=== PATIENT | female | born 1955 | race Caucasian/White ===

== ENCOUNTER → 2022-01-15 | Outpatient (CLI) | payer MEDICARE, SELFPAY ==
--- NOTE | 2022-01-15 15:00 | RAD_ITS ---
STUDY: XR Chest 2 Views 01/15/2022 3:05 PM REASON FOR EXAM: Female, 66 years old. CHEST PAIN ABNORMAL WEIGHT LOSS COMPARISON: None TECHNIQUE: XR Chest 2 Views FINDINGS: There is no demonstrated pleural abnormality. Normal heart size. Normal mediastinum. Normal sushma. Prominent appearing increased interstitial lung markings. Normal visualized pulmonary arteries. There is atherosclerotic calcification of the aortic arch with tortuosity. There are diffuse degenerative changes of the visualized thoracic spine. There is degenerative osteoarthritis of the bilateral shoulders. There is no demonstrated abnormality of the visualized soft tissue structures of the upper abdomen. RAD/Chest PA and Lateral IMPRESSION: There are no acute findings. Electronically Signed: Leonard Barr MD at 15:17 EDT ,
[2022-01-15 15:37] LABS: Anion Gap 6 (5-15); BUN 19 mg/dL (7-18); BUN/Creat Ratio 14.3 RATIO (10-20); Calcium,Total 9.9 mg/dL (8.5-10.1); Chloride 103 mmol/L (98-107); Creatinine, Serum 1.33 mg/dL (0.55-1.02); EST Glomerular Filtration Rate 43 mL/min (>60); Est Glom Filt Rate - Afr Amer 51 mL/min (>60); Glucose 125 mg/dL (74-106); Potassium 3.8 mmol/L (3.5-5.1); Sodium Level 135 mmol/L (136-145)
[2022-01-15 15:45] LABS: PTHIN 49.3 pg/mL (18.4-80.1)
== END | disposition home or self-care (01) ==
PROVIDERS: Visit Provider Nurse Practitioner Adult Health
DX: R10.30 Lower abdominal pain, unspecified (principal); E83.52 Hypercalcemia; R63.4 Abnormal weight loss
CPT/HCPCS: 36415; 71046; 80048; 83970

== ENCOUNTER → 2022-01-16 | Outpatient (CLI) | payer MEDICARE, SELFPAY | END | disposition home or self-care (01) | LOC: LAB 12:17 | PROVIDERS: Visit Provider Nurse Practitioner Adult Health | DX: R10.30 Lower abdominal pain, unspecified (principal); E83.52 Hypercalcemia | CPT/HCPCS: 82274 ==

== ENCOUNTER → 2022-01-28 | Outpatient (CLI) | payer MEDICARE, SELFPAY ==
--- NOTE | 2022-01-28 13:28 | EKG12_ITS ---
Test Reason : ROUTINE Blood Pressure : / mmHG Vent. Rate : 083 BPM Atrial Rate : 083 BPM P-R Int : 154 ms QRS Dur : 110 ms QT Int : 362 ms P-R-T Axes : 065 055 070 degrees QTc Int : 425 ms Normal sinus rhythm Normal ECG Confirmed by LYNNE TRINH, TEOFILO ([id number]), online editor MCKENZIE HAND ([id number]) on 01/29/2022 1:09:19 PM Referred By: Dana Ramos Confirmed By:TEOFILO BATISTA MD
--- NOTE | 2022-01-28 13:45 | CDU_ITS ---
Reason For Study: other symptoms of circulatory and respitory systems Rt. Velocities/BP Lt. Velocities/BP Prox CCA 77.3/25.2 cm/sec. Prox CCA 108.4/38.4 cm/sec. Mid CCA 90.4/26.5 cm/sec. Mid CCA 83.9/31.1 cm/sec. Dist CCA 77.3/22.6 cm/sec. Dist CCA 87.6/34.8 cm/sec. Prox ICA 207.8/68.8 cm/sec. Prox ICA 432.0/156.2 cm/sec. Mid ICA 301.5/110.9 cm/sec. Mid ICA 266.8/119.5 cm/sec. Dist ICA 253.1/78.5 cm/sec. Dist ICA 297.9/97.0 cm/sec. Rt. ICA/CCA = 3.3. Lt. ICA/CCA = 5.2. Prox ECA 89.1/8.2 cm/sec. Prox ECA 126.6/18.8 cm/sec. Rt. Vert. 48.2/9.9 cm/sec. Lt. Vert. 48.7/11.9 cm/sec. Right Extracranial There is homogeneous, smooth atherosclerotic plaque noted in the right common carotid artery. There is heterogeneous, irregular atherosclerotic plaque noted in the right internal carotid artery. There is homogeneous, smooth atherosclerotic plaque noted in the right external carotid artery. Antegrade flow is noted in the right vertebral artery. Left Extracranial There is homogeneous, smooth atherosclerotic plaque noted in the left common carotid artery. There is heterogeneous, irregular atherosclerotic plaque noted in the left internal carotid artery. There is heterogeneous, irregular atherosclerotic plaque noted in the left external carotid artery. Antegrade flow is noted in the left vertebral artery. Procedure Carotid Duplex [id number]. This is a Carotid Duplex examination using B-mode, color flow and specral Doppler. The exam was diagnostic. Exam performed in department. Prelim of minoo critical stenosis called to nurse Magaña at the [facility]. VL/Carotid Duplex Ultrasound Interpretation Summary Irregular calcific plaque with shadowing at the proximal right internal carotid artery with greater than 70% stenosis of the internal carotid artery Less than 50% stenosis right external carotid artery Irregular calcific plaque at the proximal left internal carotid artery with gre ater than 70% stenosis of the internal carotid artery and likely closer to near occlusion. Less than 50% stenosis left external carotid artery Patent and antegrade vertebral arteries bilaterally Ordering Physician: Dana Ramos Performed By: Robbie Yanez RVT
--- NOTE | 2022-01-28 13:50 | CT_ITS ---
STUDY: CT ABDOMEN AND PELVIS WITHOUT CONTRAST REASON FOR EXAM: Female, 66 years old. Lower abdominal pain. Weight loss. RADIATION DOSAGE (If Supplied By Facility): CTDIvol = ( 11.66 ) mGy, DLP = ( 506.72 ) mGycm TECHNIQUE: Transaxial images were obtained from the dome of the diaphragm to the symphysis pubis without oral contrast, and without intravenous contrast. Sagittal and coronal images were reconstructed. Individualized dose optimization techniques were used for this CT. COMPARISON: None. FINDINGS: Mild degree of linear scarring at the left lung base. Calcified left lower lobe granuloma. Minimal pericardial thickening. Normal liver. Normal gallbladder and extrahepatic biliary system. Normal spleen. Normal pancreas. Normal bilateral adrenal glands. Moderate degree of right hydronephrosis and the right hydroureter down to the distal ureter although no obstructive calculus is seen. This may be a result of the right vesicle ureteral reflux. Normal left kidney. There is a small hiatal hernia. Normal small intestine. There are scattered colonic diverticula consistent with diverticulosis. The appendix is visualized and appears normal. There is scattered atherosclerotic calcification of the abdominal aorta, without a demonstrated aneurysm. Normal inferior vena cava. Normal retroperitoneum. The urinary bladder is distended. Normal abdominal wall. Is sclerosis of the right pelvic bones suggestive of metastatic disease. Sclerosis is also seen in the inferior aspect of the left sacrum and left iliac bone. CT/Abdomen/Pelvis without Cont IMPRESSION: Moderate degree of right hydronephrosis and right hydroureter down to the distal portion of the right ureter. This may represent changes secondary to right vesicoureteral reflux. Findings in keeping with the sclerotic metastasis involving the right hemipelvis as described. Electronically Signed: Rios Caraballo MD at 15:31 EDT ,
== END | disposition home or self-care (01) ==
PROVIDERS: Referring Provider Nurse Practitioner Adult Health; Visit Provider Nurse Practitioner Adult Health
DX: R09.89 Other specified symptoms and signs involving the circulatory and respiratory systems (principal); R00.0 Tachycardia, unspecified; R10.30 Lower abdominal pain, unspecified
CPT/HCPCS: 74176; 93005; 93880

== ENCOUNTER → 2022-01-28 | Outpatient (CLI) | payer MEDICARE, SELFPAY ==
--- NOTE | 2022-01-28 18:25 | CT_ITS ---
EXAM: CT ANGIOGRAPHY NECK WITHOUT AND WITH INTRAVENOUS CONTRAST CLINICAL INDICATION: carotid stenosis TECHNIQUE: Routine carotid CT angiography protocol was performed without and with intravenous contrast. Nascet criteria using the distal ICAs for comparison were used for evaluation of stenoses. This CT exam was performed using one or more of the following dose reduction techniques: automated exposure control, adjustment of the mA and/or kV according to patient size, and/or use of iterative reconstruction technique. This report was created using Nipendo report generation technology. MIP reconstructed images were created and reviewed. CONTRAST: IV 100mL Isovue-370 RADIATION DOSE: CTDIvol = 14.78 mGy, DLP = 557.33 mGy-cm COMPARISON: None. FINDINGS: VASCULATURE: RIGHT COMMON CAROTID ARTERY: Unremarkable. No occlusion or significant stenosis. No dissection. RIGHT INTERNAL CAROTID ARTERY: There is mild atherosclerotic plaque formation of the origin of the right internal carotid artery with less than 50% cross sectional diameter stenosis. ALL ABOVE CRITERIA BY NASCET. No dissection. RIGHT EXTERNAL CAROTID ARTERY: Unremarkable. No occlusion. RIGHT VERTEBRAL ARTERY: Unremarkable. No occlusion or significant stenosis. No dissection. LEFT COMMON CAROTID ARTERY: Unremarkable. No occlusion or significant stenosis. No dissection. LEFT INTERNAL CAROTID ARTERY: There is severe soft and calcified atherosclerotic plaque formation of the origin of the left internal carotid artery with less a calculated stenosis of 77 % cross sectional diameter stenosis. ALL ABOVE CRITERIA BY NASCET. No dissection. LEFT EXTERNAL CAROTID ARTERY: Unremarkable. No occlusion. LEFT VERTEBRAL ARTERY: Unremarkable. No occlusion or significant stenosis. No dissection. GREAT VESSELS OF AORTIC ARCH: Unremarkable. Normal anatomy, patent. NECK: BONES/JOINTS: Unremarkable. SOFT TISSUES: Unremarkable. LUNG APICES: Clear. CAROTID STENOSIS REFERENCE USING NASCET CRITERIA: % ICA stenosis = (1 - narrowest ICA diameter/diameter of distal cervical ICA) x 100. Mild - <50% stenosis. Moderate - 50-69% stenosis. Severe - 70-94% stenosis. Near occlusion - 95-99% stenosis. Occluded - 100% stenosis. CT/CTA Neck W/WO Contrast IMPRESSION: 1. There is mild atherosclerotic plaque formation of the origin of the right internal carotid artery with less than 50% cross sectional diameter stenosis. ALL ABOVE CRITERIA BY NASCET. 2. There is severe soft and calcified atherosclerotic plaque formation of the origin of the left internal carotid artery with less a calculated stenosis of 77 % cross sectional diameter stenosis. ALL ABOVE CRITERIA BY NASCET. Electronically Signed: Leonard Barr MD at 19:05 EDT ,
== END | disposition home or self-care (01) ==
PROVIDERS: Visit Provider Surgery
DX: I65.29 Occlusion and stenosis of unspecified carotid artery (principal); R09.89 Other specified symptoms and signs involving the circulatory and respiratory systems; R00.0 Tachycardia, unspecified; R10.30 Lower abdominal pain, unspecified
CPT/HCPCS: 70498; 74176; 93005; 93880; Q9967; A4216

== ENCOUNTER → 2022-01-30 | Outpatient (CLI) | payer MEDICARE, SELFPAY ==
[2022-01-30 13:36] LABS: Cholesterol 197 mg/dL (200); High Density Lipoprotein 46 mg/dL; Triglycerides 108 mg/dL; Very Low Density Lipoprotein 22 mg/dL (5-40)
== END | disposition home or self-care (01) ==
DX: R09.89 Other specified symptoms and signs involving the circulatory and respiratory systems (principal); I65.29 Occlusion and stenosis of unspecified carotid artery
CPT/HCPCS: 36415; 80061

== ENCOUNTER → 2022-02-06 | Outpatient (CLI) | payer MEDICARE, SELFPAY ==
[2022-02-08 13:48] LABS: Thyroid Peroxidase AB 23 IU/mL (0-34)
== END | disposition home or self-care (01) ==
LOC: LAB 15:01
PROVIDERS: Visit Provider Nurse Practitioner Adult Health
DX: R68.89 Other general symptoms and signs (principal)
CPT/HCPCS: 36415; 84443; 86376

== ENCOUNTER → 2022-02-13 | Outpatient (CLI) | payer MEDICARE, SELFPAY ==
--- NOTE | 2022-02-13 16:45 | PET_ITS ---
PROCEDURE: WHOLE BODY PET/CT SCAN, MID SKULL TO MID THIGH REASON FOR EXAM: Osseous sclerosis of the right hemipelvis COMPARISON EXAMINATION: CT 01/28/2022. TECHNIQUE: Following the intravenous administration of 13.1 mCi of F-18 FDG, multiplanar imaging acquisitions of the neck, chest, abdomen/pelvis to the mid thigh, obtained at 1 hour post radiopharmaceutical administration. Interpretation is with co-registeration of similar anatomic distribution of CT. Findings: Normal and physiologic distribution of radioisotope identified in the expected intensity of the hepatic and splenic parenchyma, urinary tract and gastrointestinal structures. There is gross anatomic distribution of the intracranial contents. Focal activity of the anterior oral cavity measures 8 mm with SUV 11.0). INDEX LESION SIZE SUV INTERPRETATION: 1. Diffuse sclerosis of predominantly the right hemipelvis (much of which is associated with abnormal FDG activity involving the right iliac crest (SUV 8.5), ileum (SUV 11.7) and ischium (SUV 13.5) as seen on prior CT. There is also less defined sclerosis involving the left side of the sacrum (SUV 10.5). On PET images, there is diffuse increased activity involving the right hemipelvis and sacrum with FDG activity measuring up to SUV. There is also increased activity involving the right iliacus muscle with SUV measuring up to 21.2 3. Focal activity of the anterior oral cavity measures 8 mm with SUV 11.0. 4. Focal (1.2 cm) activity of the right side of the heart (in region of interatrial septum) with SUV 10.4 measuring best seen on image 96 of series 301. 5. U-shaped wall thickening of the posterior upper stomach with focal increased activity (SUV) best seen on image [address] portion of the exam: Atherosclerosis of the carotid arteries. The lungs are normal. There is no demonstrated pleural abnormality. Normal heart and pericardium. Normal mediastinum. Normal hilar regions. Normal unenhanced pulmonary arteries. Atherosclerosis of the thoracic aorta. Normal liver. Normal gallbladder and extrahepatic biliary system. Normal spleen. Normal pancreas. Normal bilateral adrenal glands. Persistent hydronephrosis of the right kidney with hydroureter. Hyperdensity within the right urinary tract suggest blood product/hematuria. Left kidney is unremarkable. Normal visualized stomach. Normal small intestine. There are multiple colonic diverticula consistent with diverticulosis. The appendix is visualized and appears normal. There is diffuse atherosclerotic calcification of the abdominal aorta, without a demonstrated aneurysm. Normal inferior vena cava. Normal urinary bladder. Mild thickening of the right iliacus muscle as compared to the left with slightly indistinct margins, unchanged since prior study.. PET/PET/CT Tumor Base -Thigh Init IMPRESSION: 1. Diffuse sclerosis and increased FDG activity of the right hemipelvis and sacrum with thickening and increased activity of the right iliacus muscle. Although findings meet criteria for viable neoplasm, other benign/metabolic causes such as Paget''s disease should be considered, albeit less likely. Biopsy may be necessary for differentiation. 2. Gastric wall thickening with associated abnormal FDG activity meeting criteria for viable neoplasm. Endoscopic evaluation recommended. 3. Focal activity of the right side of the heart, in region of the interatrial septum, likely representing lipomatous hypertrophy of the interatrial septum. 4. Stable severity of right hydronephrosis/hydroureter with new hyperdensity suggesting blood products/hematuria. Correlation with urinalysis recommended. Urology consultation should be considered. 5. Focal activity of the anterior midline oral cavity meets criteria for viable neoplasm. Direct visualization recommended. 6. Chronic changes, as detailed above. Electronically Signed: Anthony Reeves MD ([place]) at 14:46 EDT ,
== END | disposition home or self-care (01) ==
LOC: ONC 16:24
PROVIDERS: Referring Provider Nurse Practitioner Adult Health; Visit Provider Nurse Practitioner Adult Health
DX: R93.5 Abnormal findings on diagnostic imaging of other abdominal regions, including retroperitoneum (principal)
CPT/HCPCS: 78815; A9552

== ENCOUNTER 2022-02-19 12:12 | Inpatient (IN) | payer MEDICARE, SELFPAY ==
[2022-02-19] VITALS (13 sets, daily range): BP systolic 107–158; BP diastolic 54–91; PULSE 65–104; RESP 16–18; TEMP 36.3–37.1; O2SAT 92–100; BMI 28.3; BMI 28.0
--- NOTE | 2022-02-19 13:00 | EKG12_ITS ---
Test Reason : Blood Pressure : / mmHG Vent. Rate : 075 BPM Atrial Rate : 075 BPM P-R Int : 158 ms QRS Dur : 104 ms QT Int : 388 ms P-R-T Axes : 052 019 032 degrees QTc Int : 433 ms Normal sinus rhythm Normal ECG Confirmed by MAC TRINH, GUY ([id number]), editor at large MCKENZIE HAND ([id number]) on 02/21/2022 10:58:29 AM Referred By: Confirmed By:GUY WATTS MD
--- NOTE | 2022-02-19 13:01 | EDS_ITS ---
HPI History of Present Illness Chief Complaint: Abn Labs Informant: patient and family Narrative Narrative: 66-year-old female presenting to the emergency room with low hemoglobin level. Patient recently found out she most likely has metastatic cancer. She states that she has lesions in her bones and a gastric mass. She follows with . Barb from who nora blood on her today and the patient has a hemoglobin of 5.8. She does note that her stools are black. She was scheduled for endoscopy in just a couple days but due to the anemia was sent to emergency. She notes no syncope but has had near syncopal episodes. She feels lightheaded. She denies any chest pain. [facility] Medical History Abdominal pain Abnormal weight loss Dizziness Essential (primary) hypertension Lower abdominal pain, unspecified Home Medications budesonide 160 mcg-glycopyr 9 mcg-formot 4.8 mcg/actuation HFA inhaler ([employer]) 2 inh inhalation BID 01/28/22 [History Last Taken 02/19/22] gabapentin 300 mg capsule 300 mg PO TID 01/28/22 [History Last Taken 02/19/22] losartan 100 mg tablet 100 mg PO DAILY 01/28/22 [History Last Taken 02/15/22] tizanidine 4 mg tablet 4 mg PO BID PRN MUSCLE RELAXER 01/28/22 [History Last Taken 02/19/22] clopidogrel 75 mg tablet 75 mg PO DAILY BLOOD THINNER 02/08/22 [History Last Taken 02/15/22] hydrocodone-acetaminophen 5-325mg 5mg-325mg 1 tab PO Q8H PRN Pain 02/08/22 [History Last Taken 02/19/22] simvastatin 20 mg tablet 20 mg PO QHS CHOLESTEROL 02/08/22 [History Last Taken 02/18/22] dexamethasone 4 mg tablet (Decadron) 4 mg PO DAILY #30 tabs 02/18/22 [Rx Last Taken 02/18/22] naproxen sodium 220 mg tablet (Aleve) 440 mg PO BID PRN Pain 02/19/22 [History Last Taken Unknown] Allergy/AdvReac Type Severity Reaction Status Date / Time No Known Allergies Allergy Verified 02/19/22 12:13 Family History Grandmother Breast cancer Hypertension Sister Cancer CERVICAL Sister Cancer UTERUS Brother Cancer ESOPHAGEAL Brother Cancer PROSTATE Mother Hypertension Diabetes Social History (Updated 02/19/22 @ 13:[address] Gene Kerr DO) Smoking Status: Current every day smoker tobacco type: cigarettes substance use type: does not use EXAM Physical Exam Const Vital Signs: 02/19/22 12:13 02/19/22 12:49 Temperature 98.1 F Temperature Source Temporal Pulse Rate 104 H Respiratory Rate 16 Respiratory Effort Normal Respiratory Pattern Normal Blood Pressure 107/56 L Blood Pressure Mean 73 Pulse Ox 92 Oxygen Delivery Method Room Air Positive well nourished and well developed General Appearance ED: well developed and pallor HEENT Reports normocephalic, head/scalp atraumatic and moist mucous membranes Eyes PERRL and EOMs intact bilaterally General Eye ED: Yes pale conjunctiva Neck no lymphadenopathy, supple and no JVD Resp normal respiratory effort and clear to auscultation bilaterally Cardio regular rate and no murmurs Rate: tachycardic GI normal to inspection, nondistended, normoactive bowel sounds and non-tender Palpation: soft Back/Spine no CVA tenderness and normal ROM Extremity normal to inspection General Extremety ED: Negative for edema General Extremity: Negative for edema Neuro oriented x3 and CN's II-XII intact bilaterally Sensorium / Orientation: alert Motor Exam: strength 5/5 throughout Psych mental status grossly normal Mood & Affect: Negative for depressed or tearful Skin no rashes or lesions noted and no wounds General Skin Exam: pallor MDM MDM MDM Narrative Medical decision making narrative: I reviewed the outpatient labs. Patient was typed and crossed for 2 units. I will speak with the hospitalist regarding admission. Lab Data Attestation: I reviewed the patient's lab results. Labs: Laboratory Results - last 24 hr 02/19/22 02/19/22 12:35 12:35 PT 15.2 H INR 1.2 APTT 49.2 H Crossmatch See Detail EKG Initial EKG: Attestation: I personally reviewed and interpreted this EKG as follows: Comments: Normal sinus rhythm with a ventricular rate of 75 bpm. Discharge Plan Dx/Rx/DC Orders Clinical Impression: Gastric mass, Anemia requiring transfusions, Acute upper gastrointestinal bleeding Disposition Disposition: [facility]
[2022-02-19 13:20] LABS: International Normalized Ratio 1.2; Prothrombin Time (Protime)PT. 15.2 SECONDS (11.7-14.9)
[2022-02-19 13:21] LABS: Partial Thromboplast Time 49.2 Seconds (24.1-36.2)
--- NOTE | 2022-02-19 13:44 | PCM.HP.STD ---
HPI - General General Date of Admission: 02/19/22 HPI Narrative DEVIN BALLESTEROS, is a 66 F who presents to the hospital with a GI bleed. She has a gastric mass that was currently being worked up. She was post to have an endoscopy here in a few days for biopsy however she started having black stools and feeling lightheaded and having near syncopal episodes. She presented to the ER today after outpatient labs demonstrated a hemoglobin of 5.8. Creatinine is a little bit on the high side for her at 1.7 this is likely a reaction to her hemoglobin. She also has bone lesions that are also scheduled to be biopsied as well. [facility] Medical History Abdominal pain Abnormal weight loss Dizziness Essential (primary) hypertension Lower abdominal pain, unspecified Home Medications budesonide 160 mcg-glycopyr 9 mcg-formot 4.8 mcg/actuation HFA inhaler ([employer]) 2 inh inhalation BID 01/28/22 [History Last Taken 02/19/22] gabapentin 300 mg capsule 300 mg PO TID 01/28/22 [History Last Taken 02/19/22] losartan 100 mg tablet 100 mg PO DAILY 01/28/22 [History Last Taken 02/15/22] tizanidine 4 mg tablet 4 mg PO BID PRN MUSCLE RELAXER 01/28/22 [History Last Taken 02/19/22] clopidogrel 75 mg tablet 75 mg PO DAILY BLOOD THINNER 02/08/22 [History Last Taken 02/15/22] hydrocodone-acetaminophen 5-325mg 5mg-325mg 1 tab PO Q8H PRN Pain 02/08/22 [History Last Taken 02/19/22] simvastatin 20 mg tablet 20 mg PO QHS CHOLESTEROL 02/08/22 [History Last Taken 02/18/22] dexamethasone 4 mg tablet (Decadron) 4 mg PO DAILY #30 tabs 02/18/22 [Rx Last Taken 02/18/22] naproxen sodium 220 mg tablet (Aleve) 440 mg PO BID PRN Pain 02/19/22 [History Last Taken Unknown] Allergy/AdvReac Type Severity Reaction Status Date / Time No Known Allergies Allergy Verified 02/19/22 12:13 Family History Grandmother Breast cancer Hypertension Sister Cancer CERVICAL Sister Cancer UTERUS Brother Cancer ESOPHAGEAL Brother Cancer PROSTATE Mother Hypertension Diabetes Surgical History no surgical history no surgical history Social History (Updated 02/19/22 @ 13:[address] Gene Kerr DO) Smoking Status: Current every day smoker tobacco type: cigarettes substance use type: does not use ROS Constitutional Constitutional: Reports fatigue; Denies chills, fever(s) or malaise Eyes Eyes: Denies blurry vision ENT HEENT: Denies headache(s) or nasal discharge Cardiovascular Cardiovascular: Reports lightheadedness; Denies chest pain, dyspnea on exertion or syncope Respiratory/Chest Respiratory/Chest: Denies cough, shortness of breath at rest or shortness of breath with exertion Gastrointestinal Gastrointestinal: Reports melena; Denies constipation, diarrhea, nausea or vomiting Genitourinary Genitourinary: Denies dysuria Neurologic Neurologic: Denies focal weakness, numbness or tremor(s) Psychiatric Psychiatric: Denies anxiety or depression Vital Signs Vital Signs Vital Signs: 02/19/22 12:13 02/19/22 12:49 Temperature 98.1 F Temperature Source Temporal Pulse Rate 104 H Respiratory Rate 16 Respiratory Effort Normal Respiratory Pattern Normal Blood Pressure 107/56 L Blood Pressure Mean 73 Pulse Ox 92 Oxygen Delivery Method Room Air Weight Weight: 145 lb Body Mass Index (BMI) 28.3 Physical Exam Const alert, oriented x3 and no apparent distress General Appearance: cooperative HEENT normocephalic Mouth: dry mucous membranes Eyes PERRL and EOMs intact bilaterally Eyes Narrative: Pale conjunctiva Neck supple and no JVD Resp normal respiratory effort, no retractions, no use of accessory muscles and clear to auscultation bilaterally Auscultation: Negative for crackles, rales, rhonchi or wheezes Cardio regular rhythm, S1 normal heart sound, S2 normal heart sound and no murmurs Rate: tachycardic GI soft to palpation, non-tender and non-distended; Negative for hepatosplenomegaly Extremity no clubbing, cyanosis or edema Skin no rashes or lesions noted Neuro no focal motor deficits and no sensory deficits noted Psych affect normal Appearance: appropriate Results Lab / Micro Data Labs: Laboratory Results - last 24 hr 02/19/22 12:35: PT 15.2 H, INR 1.2, APTT 49.2 H 02/19/22 12:35: Crossmatch See Detail Assessment & Plan Assessment/Plan (1) Acute upper gastrointestinal bleeding: PLAN: Plan 1. Acute upper GI bleed with acute blood loss anemia possibly due to a gastric mass ? We will schedule to have an EGD in a few days however outpatient hemoglobin was 5.8 and she is been having black stools ? We will place her on a PPI ? Consult GI for endoscopy ? We will hold her Plavix ? We will hold her Decadron while n.p.o. ? Had a 25-minute discussion of advance care planning options including palliative care 2. HTN/HLD ? Blood pressures are stable, given her creatinine elevation, will hold her losartan ? Will hold her Plavix secondary to the GI bleed ? Since she is n.p.o. we will hold her statin DVT: SCDs Charges/Coding Visit Charges Inpatient E&M: 94828 Init Hosp L2 Procedures Hospitalists Procedures: 11917 Advncd Care Plan 30 Min
--- NOTE | 2022-02-19 13:45 | NURSING ---
MED SURG JACKIE UPPER GI BLEED, GASTRIC MASS, ANEMIA
--- NOTE | 2022-02-19 18:09 | PCM.CONS.GEN ---
Assessment & Plan Assessment/Plan (1) Gastric mass: PLAN: The differential diagnosis for gastric mass could be gastric adenocarcinoma, gastric lymphoma, gastric carcinoid, thickened gastric folds secondary to M?ni?re's disease versus linitus plastica. She will undergo an upper endoscopy to evaluate upper GI tract. (2) Acute upper gastrointestinal bleeding: PLAN: Differential diagnosis for upper GI bleed could be AVM could be gastric mass could be peptic ulcer disease. We will know more we will perform an upper endoscopy. HPI Consult Data Date of Consult: 02/19/22 HPI Narrative Reason for Consultation: anemia HPI Narrative: DEVIN BALLESTEROS, is a 66 F who presents to the office for outpatient consultation regarding a abnormality found on the PET scan that she had recently. She does admit to losing weight and having some progressive abdominal pain. She got a CT scan abdomen pelvis which had shown some bone lesions suspicious for metastatic disease. She got a PET scan which had shown that she possibly has a gastric mass and we were consulted for the evaluation of the gastric mass by oncology. She has had right hip pain for approximately 2 years but it worsened this Spring.? She developed dizziness and mid abdominal pain in November and the symptoms escalated in December.? She reports no pain in the abdomen currently since starting dexamethasone and pain medication.? She has a poor appetite and has lost weight.? She denies nausea or vomiting.? She has decreased frequency of bowel movements, no straining.? She has a stool softener at home that she plans to start taking. Labs on 12/31/2021: WBC 6.6, hemoglobin 12.1, platelets 474; hemoglobin A1c 6.0; protein 8.1, albumin 4.2, bilirubin 0.2, alk phos 82, AST 16, ALT 14, creatinine 1.27, sodium 134, potassium 4.8; iron 48; stool Hemoccult negative Labs on 02/19/2022: White blood cell count is normal hemoglobin is down to 5.8, platelet count is up to 710. [facility] Medical History Abdominal pain Abnormal weight loss Dizziness Essential (primary) hypertension Lower abdominal pain, unspecified Home Medications budesonide 160 mcg-glycopyr 9 mcg-formot 4.8 mcg/actuation HFA inhaler (Breztri Upkeep Charliephere) 2 inh inhalation BID 01/28/22 [History Last Taken 02/19/22] gabapentin 300 mg capsule 300 mg PO TID 01/28/22 [History Last Taken 02/19/22] losartan 100 mg tablet 100 mg PO DAILY 01/28/22 [History Last Taken 02/15/22] tizanidine 4 mg tablet 4 mg PO BID PRN MUSCLE RELAXER 01/28/22 [History Last Taken 02/19/22] clopidogrel 75 mg tablet 75 mg PO DAILY BLOOD THINNER 02/08/22 [History Last Taken 02/15/22] hydrocodone-acetaminophen 5-325mg 5mg-325mg 1 tab PO Q8H PRN Pain 02/08/22 [History Last Taken 02/19/22] simvastatin 20 mg tablet 20 mg PO QHS CHOLESTEROL 02/08/22 [History Last Taken 02/18/22] dexamethasone 4 mg tablet (Decadron) 4 mg PO DAILY #30 tabs 02/18/22 [Rx Last Taken 02/18/22] naproxen sodium 220 mg tablet (Aleve) 440 mg PO BID PRN Pain 02/19/22 [History Last Taken Unknown] Allergy/AdvReac Type Severity Reaction Status Date / Time No Known Allergies Allergy Verified 02/19/22 12:13 Family History Grandmother Breast cancer Hypertension Sister Cancer CERVICAL Sister Cancer UTERUS Brother Cancer ESOPHAGEAL Brother Cancer PROSTATE Mother Hypertension Diabetes Surgical History no surgical history Social History (Updated 02/19/22 @ 13:[address] Gene Kerr DO) Smoking Status: Current every day smoker tobacco type: cigarettes substance use type: does not use ROS Constitutional Constitutional: Reports fatigue; Denies chills, fever(s) or malaise Eyes Eyes: Denies blurry vision ENT HEENT: Denies headache(s) or nasal discharge Cardiovascular Cardiovascular: Reports lightheadedness; Denies chest pain, dyspnea on exertion or syncope Respiratory/Chest Respiratory/Chest: Denies cough, shortness of breath at rest or shortness of breath with exertion Gastrointestinal Gastrointestinal: Reports melena; Denies constipation, diarrhea, nausea or vomiting Genitourinary Genitourinary: Denies dysuria Neurologic Neurologic: Denies focal weakness, numbness or tremor(s) Psychiatric Psychiatric: Denies anxiety or depression Physical Exam Const alert, oriented x3 and no apparent distress General Appearance: cooperative HEENT normocephalic Mouth: dry mucous membranes Eyes PERRL and EOMs intact bilaterally Eyes Narrative: Pale conjunctiva Neck supple and no JVD Resp normal respiratory effort, no retractions, no use of accessory muscles and clear to auscultation bilaterally Auscultation: Negative for crackles, rales, rhonchi or wheezes Cardio regular rhythm, S1 normal heart sound, S2 normal heart sound and no murmurs Rate: tachycardic GI soft to palpation, non-tender and non-distended; Negative for hepatosplenomegaly Extremity no clubbing, cyanosis or edema Skin no rashes or lesions noted Neuro no focal motor deficits and no sensory deficits noted Psych affect normal Appearance: appropriate Lab / Micro Data Labs: Laboratory Results - last 24 hr 02/19/22 12:35: PT 15.2 H, INR 1.2, APTT 49.2 H 02/19/22 12:35: Blood Type O NEGATIVE, Antibody Screen NEGATIVE, Crossmatch See Detail Charges/Coding Visit Charges Inpatient E&M: 04425 Init Hosp L2
[2022-02-19] MEDS: 0.9% Normal Saline 1,000 ML 100 ML IV (21:43)
[2022-02-19] MEDS: 0.9% Saline Lock 10 ML Syringe IV (22:04)
--- NOTE | 2022-02-19 23:50 | EKG12_ITS ---
Test Reason : PRE-OP Blood Pressure : / mmHG Vent. Rate : 068 BPM Atrial Rate : 068 BPM P-R Int : 156 ms QRS Dur : 098 ms QT Int : 392 ms P-R-T Axes : 056 005 028 degrees QTc Int : 416 ms Normal sinus rhythm Normal ECG Confirmed by MAC TRINH, GUY ([id number]), dictionary editor MCKENZIE HAND ([id number]) on 02/21/2022 11:08:01 AM Referred By: TARA Confirmed By:GUY WATTS MD
[2022-02-20] VITALS (13 sets, daily range): BP systolic 102–124; BP diastolic 51–90; PULSE 69–89; RESP 15–18; TEMP 36.4–37.2; O2SAT 94–100; BMI 27.5
--- NOTE | 2022-02-20 | IMM_PTH ---
PATIENT: DEVIN BALLESTEROS LOC: [facility] U#:[id number] AGE/SX: 66/F ROOM: [facility] RE02/19/[address]: Dr. Mick Mcgrath DO : 1955 BED: 1 DIS: 02/21/2022 SPEC #: [id number] RECD: 02/21/22 13:48 STATUS: RICCARDO REQ #: [id number] ELLA: 02/20/22 00:[address]: Ra Barbhsaan DEPT: IMMUNOHISTOCHEMISTRY RECD BY: Ellie Gordon ENTERED: 02/21/22 13:50 SP TYPE: IMMUNO OTHR DR: DO Dr. Mason Snowden MD [facility] Tissues: Stomach, NOS Procedures: BCL-2 (add) BCL-6 (add) CD10 (add) CD23 (add) CD3 (add) CD30 (add) CD43 (add) CD5 (add) CD79A (add) CK8 (add) CYCLIN (add) KI-67 (add) Vimentin (add) H.PYLORI (add) MUM1 (add) C-MYC (add) Pankeratin (add) CD45 (initial) PHYSICIAN & [place] [id number] SPECIMEN INFORMATION: Tissue Source: Gastric mass Clinical Info: Gastric mass, acute upper GI bleeding Specimen Number: [id number] CPT code: 63875, 21666 x17 METHODOLOGY: Deparaffinized sections of prefer/formalin-fixed tissue or PAP/DQ stained slides are incubated with monoclonal/polyclonal antibodies/oligonucleotide probes. Localization is made via biotin free immunoperoxidase method. Appropriate controls are performed and reacted as expected. Results on target cell population are indicated in the following table: RESULTS: ANTIBODY / CLONE RESULT CD45 (RP2/18) positive CK8 (19cxsgQ33) negative AE1-3 (AE1/AE3/PCK26) negative Vimentin (V9) positive CD3 (PS1) negative CD5 (SP10) negative CD10 (56C6) positive CD20 (L26) positive CD23 (1B12) negative CD30 (Amor-H2) negative CD43 (L60) negative CD79a (11E3) positive BCL-2 (bcl-2/100/D5) negative BCL-6 (FR035M/A8) positive, focal Cyclin D1/BCL-1 (SP4) negative MUM1 (MRQ-43) negative C-MYC (Y69) positive Ki-67 (30-9) positive, high H Pylori (polyclonal) negative These tests were developed and their performance characteristics determined by [facility]. They may not have been cleared or approved by the U.S. Food and Drug Administration. The FDA has determined that such clearance or approval is not necessary. The above immunohistochemical/dualISH markers are ordered and reviewed by the Pathologist. 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 SJ:ivonne 02/26/2022 Case has been reviewed in consultation with Dr. Rivera who concurs with the above diagnosis. IDC:AM ADDENDUM ADDENDUM ADDENDUM ADDENDUM ADDENDUM ADDENDUM 04/09/2022 10:17 ADDENDUM 04/09/2022 10:17 ADDENDUM 04/09/2022 10:17 ADDENDUM 04/09/2022 10:17 ADDENDUM 04/09/2022 10:17 HPylori testing added to IHC Gastric mass, biopsy: Negative for Helicobacter pylori organisms. SJ:janelle 04/09/22
[2022-02-20] MEDS: Gabapentin 300 MG Capsule PO ×3 (00:33→21:24)
[2022-02-20] MEDS: Ipratropium/Albuterol Sulfate 3 ML AMPUL.NEB INHALATION ×3 (01:05→18:59)
[2022-02-20] MEDS: HYDROcodone Bitartrate/Apap 5/325 Tablet PO (05:29)
[2022-02-20 06:29] LABS: Absolute Lymphocyte Count 1.23 X10^3/uL (0.83-4.51); Absolute Neutrophil Count 6.9 X10^3/uL (2.0-7.7); Basophil# 0.03 X10^3/uL; Basophil% 0.3 % (0-1); Eosinophil# 0.01 X10^3/uL; Eosinophils% 0.1 % (0-5); Hematocrit 23.4 % (37-47); Hemoglobin 7.7 g/dL (12.0-15.0); Lymphocyte # 1.23 X10^3/ul (0.83-4.51); Lymphocyte % 13.6 % (19-41); Mean Corp Hgb Conc 32.9 g/dL (32-36); Mean Corpuscular Hgb 29.7 pg (27.0-32.0); Mean Corpuscular Volume 90.3 fL (81-99); Mean Platelet Vol. 8.2 fl (6.2-12.0); Monocyte# 0.69 X10^3/uL; Monocyte% 7.6 % (0-10); NRBC Flagged by Analyzer 0.2 % (0-5); Neutrophil # 6.94 X10^3/uL (2.7-7.7); Neutrophil % 76.6 % (47-70); Platelet Count 487 K/mm3 (150-450); RBC Distribution Width CV 14.6 % (11.6-14.6); RBC Distribution Width SD 47.6 fl (35.1-43.9); Red Blood Count 2.59 M/mm3 (4.2-5.4); White Blood Count 9.1 K/mm3 (4.4-11.0)
[2022-02-20 06:55] LABS: Anion Gap 6 (5-15); BUN 23 mg/dL (7-18); BUN/Creat Ratio 17.3 RATIO (10-20); Calcium,Total 8.9 mg/dL (8.5-10.1); Chloride 107 mmol/L (98-107); Creatinine, Serum 1.33 mg/dL (0.55-1.02); EST Glomerular Filtration Rate 43 mL/min (>60); Est Glom Filt Rate - Afr Amer 51 mL/min (>60); Estimated Creatinine Clearance 30.29 ml/min; Glucose 89 mg/dL (74-106); Potassium 4.7 mmol/L (3.5-5.1); Sodium Level 136 mmol/L (136-145)
--- NOTE | 2022-02-20 07:15 | EGD_PTH ---
PATIENT: DEVIN BALLESTEROS LOC: [facility] U#:[id number] AGE/SX: 66/F ROOM: [facility] RE02/19/[address]: Dr. Mick Mcgrath DO : 1955 BED: 1 DIS: 02/21/2022 SPEC #: [id number] RECD: 02/20/22 13:27 STATUS: RICCARDO JUMANA #: [id number] ELLA: 02/20/22 07:[address]: Shalom Day DEPT: SURGICAL PATHOLOGY RECD BY: Cheko Bishop ENTERED: 02/20/22 13:53 SP TYPE: EGD BIOPSY DUKE DR: Dr. 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 See comment. NII:ivonne 02/21/2022 COMMENT Immunohistochemistry ([id number]) supports the above diagnosis. The specimen is also sent for FISH studies, results will be reported as an addendum. Correlation with clinical, endoscopic findings and appropriate follow up are necessary. Case has been reviewed in consultation with Dr. Rivera who concurs with the above diagnosis. IDC:AM MICROSCOPIC DESCRIPTION Slides are reviewed. GROSS DESCRIPTION Received in fixative is one container labeled with the patient's name and designated gastric mass. The specimen consists of multiple irregular fragments of light kendall soft tissue that in aggregate measure 2 x 1 x 0.2 cm. The specimen is totally submitted in one cassette. / NII:ivonne 02/20/2022 TC:0 CPT: 04709 ADDENDUM ADDENDUM ADDENDUM ADDENDUM ADDENDUM ADDENDUM ADDENDUM ADDENDUM ADDENDUM ADDENDUM ADDENDUM ADDENDUM ADDENDUM ADDENDUM ADDENDUM ADDENDUM ADDENDUM ADDENDUM 03/05/2022 09:15 ADDENDUM 03/05/2022 09:15 ADDENDUM 03/05/2022 09:15 ADDENDUM 03/05/2022 09:15 ADDENDUM 03/05/2022 09:15 FLUORESCENCE IN-SITU HYBRIDIZATION (FISH) FROM [employer] INTERPRETATION: 1. Positive for MYC (8q24) gene rearrangement in 20% of nuclei. Comment: Most MYC (8q24) translocations contain a MYC-IGH rearrangement. The less common rearrangements include MYC/2p12 at the kappa light chain locus and MYC/22q11 at the lambda light chain locus. This probe cannot distinguish between the various breakpoints. 2. BCL2-IGH [translocation t(14;18)] gene rearrangement is detected in 20% of nuclei. Comment: The translocation t(14;18) associated with BCL2 (18q21) and IGH (14q32) gene rearrangement is a characteristic finding in follicular lymphoma and diffuse large B-cell lymphoma of follicular center cell origin. Correlation with hematopathology is suggested. 3. No evidence of BCL6 (3q27) breakpoint translocation. 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 Please see complete report in e-chart or EMR
--- NOTE | 2022-02-20 07:52 | OP.EGD_ITS ---
Patient Name: Jacqui Soler Procedure Date: 02/20/2022 7:21 AM Date of : 1955 Age: 66 Procedure: Upper GI endoscopy Indications: Epigastric abdominal pain Providers: Shalom Day DO Medicines: Monitored Anesthesia Care Patient Profile: This is a 66 year old female. Refer to note in patient chart for documentation of history and physical. Patient has symptoms. Complications: No immediate complications. Procedure: Pre-Anesthesia Assessment: - Prior to the procedure, a History and Physical was performed, and patient medications and allergies were reviewed. The patient is competent. The risks and benefits of the procedure and the sedation options and risks were discussed with the patient. All questions were answered and informed consent was obtained. Patient identification and proposed procedure were verified by the physician in the pre-procedure area. Mental Status Examination: alert and oriented. Airway Examination: normal oropharyngeal airway and neck mobility. Respiratory Examination: clear to auscultation. CV Examination: normal. Prophylactic Antibiotics: The patient does not require prophylactic antibiotics. Prior Anticoagulants: The patient has taken no previous anticoagulant or antiplatelet agents. ASA Grade Assessment: II - A patient with mild systemic disease. After reviewing the risks and benefits, the patient was deemed in satisfactory condition to undergo the procedure. The anesthesia plan was to use moderate sedation / analgesia (conscious sedation). Immediately prior to administration of medications, the patient was re-assessed for adequacy to receive sedatives. The heart rate, respiratory rate, oxygen saturations, blood pressure, adequacy of pulmonary ventilation, and response to care were monitored throughout the procedure. The physical status of the patient was re-assessed after the procedure. After obtaining informed consent, the endoscope was passed under direct vision. Throughout the procedure, the patient's blood pressure, pulse, and oxygen saturations were monitored continuously. The gastroscope was introduced through the mouth, and advanced to the second part of duodenum. The upper GI endoscopy was accomplished without difficulty. The patient tolerated the procedure well. Scope In: 7:29:46 AM Scope Out: 7:44:23 AM Total Procedure Duration Time 0 hours 14 minutes 37 seconds Findings: The examined esophagus was normal. A large, ulcerated, non-circumferential mass with oozing bleeding and stigmata of recent bleeding was found in the gastric fundus and in the gastric body. Biopsies were taken with a cold forceps for histology. Verification of patient identification for the specimen was done. Estimated blood loss was minimal. The second portion of the duodenum was normal. Impression: - Normal esophagus. 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 Biopsied. - Normal second portion of the duodenum. Recommendation: - Return patient to the floors. - Protonix 40 mg 3 times a day - Carafate 1 g 4 times a day - Resume previous diet. - No aspirin, ibuprofen, naproxen, or other non-steroidal anti-inflammatory drugs for 8 weeks. - Await pathology results. Procedure Code(s): --- Professional --- 83591, Esophagogastroduodenoscopy, flexible, transoral; with biopsy, single or multiple CPT copyright 2017 [employer]. All rights reserved. The codes documented in this report are preliminary and upon tree doctor review may be revised to meet current compliance requirements. Shalom Day DO 02/20/2022 7:51:35 AM This report has been signed electronically. Number of Addenda: 1 Note Initiated On: 02/20/2022 7:21 AM Addendum Number: 1 Addendum Date: 05/28/2022 6:03:27 AM MAC was used as sedation for this procedure. Shalom Day DO 05/28/2022 6:03:31 AM This report has been signed electronically.
--- NOTE | 2022-02-20 07:52 | OP.CCLET_ITS ---
[facility] This procedure was performed on Sunday, February 20, 2022. My impressions and recommendations are as follows: Impressions : - Normal esophagus. 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 Biopsied. - Normal second portion of the duodenum. Recommendations : - Return patient to the floors. - Protonix 40 mg 3 times a day - Carafate 1 g 4 times a day - Resume previous diet. - No aspirin, ibuprofen, naproxen, or other non-steroidal anti-inflammatory drugs for 8 weeks. - Await pathology results. My findings are described in the full procedure note, which is enclosed. If I can be of further assistance, please feel free to contact me at . Sincerely, Shalom Day, 02/20/2022 7:51:35 AM This report has been signed electronically.
[2022-02-20] MEDS: 0.9% Normal Saline 1,000 ML 100 ML IV ×2 (08:39→18:05)
--- NOTE | 2022-02-20 10:08 | PN.HOSP_ITS ---
Subjective Subjective Feels a little bit better today, EGD yesterday demonstrated gastric mass that was likely the source of her bleeding. Biopsies were done. Hemoglobin today 7.7 Objective Data Objective Data Vital Signs: Vital Signs Temp Pulse Resp BP Pulse Ox O2 Del Method 97.7 F L 69 16 107/57 L 100 Room Air 02/20/22 08:35 02/20/22 08:35 02/20/22 08:35 02/20/22 08:35 02/20/22 08:35 02/20/22 08:35 Oxygen Delivery Method Room Air Weight: 140 lb 14.006 oz Body Mass Index (BMI) 27.5 Intake & Output: Intake and Output for Last 24 Hours 02/19/22 02/20/22 02/21/22 03:59 03:59 03:59 Intake Total 910 / 910 1000 / 1000 Balance 910 / 910 1000 / 1000 Lab / Micro Data Result Diagrams: 02/20/22 06:05 02/20/22 06:05 Labs: Laboratory Results - last 24 hr 02/19/22 12:35: PT 15.2 H, INR 1.2, APTT 49.2 H 02/19/22 12:35: Blood Type O NEGATIVE, Antibody Screen NEGATIVE, Crossmatch See Detail 02/20/22 06:05: WBC 9.1, RBC 2.59 L, Hgb 7.7 L, Hct 23.4 L, MCV 90.3, MCH 29.7, MCHC 32.9 D, RDW Std Deviation 47.6 H, RDW Coeff of Real 14.6, Plt Count 487 H, MPV 8.2, Immature Gran % (Auto) 1.800 H, Neut % (Auto) 76.6 H, Lymph % (Auto) 13.6 L, [place] % (Auto) 7.6, Eos % (Auto) 0.1, Baso % (Auto) 0.3, Absolute Neuts (auto) 6.9, Absolute Lymphs (auto) 1.23, Nucleated RBC % 0.2 02/20/22 06:05: Sodium 136, Potassium 4.7, Chloride 107, Carbon Dioxide 23.0, Anion Gap 6, BUN 23 H, Creatinine 1.33 H, Estim Creat Clear Calc 30.29, Est GFR (MDRD) Af Amer 51 L, Est GFR (MDRD) Non-Af 43 L, BUN/Creatinine Ratio 17.3, Glucose 89, Calcium 8.9 Physical Exam Const alert, oriented x3 and no apparent distress General Appearance: cooperative HEENT normocephalic and moist oral mucous membranes Eyes PERRL and EOMs intact bilaterally Eyes Narrative: Pale conjunctiva Neck supple and no JVD Resp normal respiratory effort, no retractions, no use of accessory muscles and clear to auscultation bilaterally Auscultation: Negative for crackles, rales, rhonchi or wheezes Cardio regular rate, regular rhythm, S1 normal heart sound, S2 normal heart sound and no murmurs GI soft to palpation, non-tender and non-distended; Negative for hepatosplenomegaly Extremity no clubbing, cyanosis or edema Skin no rashes or lesions noted Neuro no focal motor deficits and no sensory deficits noted Psych affect normal Appearance: appropriate Assessment & Plan Assessment/Plan (1) Acute upper gastrointestinal bleeding: PLAN: Plan 1. Acute upper GI bleed with acute blood loss anemia possibly due to a gastric mass ? We will place her on a PPI ? EGD showed a mass biopsies have been obtained ? We will repeat hemoglobin this afternoon to make sure it stable ? We will hold her Plavix, and she will have to discontinue her naproxen ? Can restart her steroids 2. HTN/HLD ? Blood pressures are stable, given her creatinine elevation, will hold her losartan ? Will hold her Plavix secondary to the GI bleed ? Can resume some of her home medications now that she can have a diet DVT: SCDs Charges/Coding Visit Charges Inpatient E&M: 35946 Subs Hosp L2
--- NOTE | 2022-02-20 11:13 | CASEMGMT ---
TRISTAN JONES assessment: Face to Face with patient for initial transition planning/care coordination assessment. TRISTAN JONES introduced self and role at [facility], pt voices understanding and consents to assessment. Pt is A/Ox4 and answers all questions appropriately.? Pt is sitting up in bed in no distress on room air. Care providers, pharmacy,?and demographics verified. ? Presentation: Pt sent in by Dr. Day's office for low Hgb Admitting dx: GI bleed, gastric mass PCP: Patti Burnette Specialists: Reena, onc; Barb, GI; Nishant uro Preferred Pharmacy: [facility] Insurance: [facility] Prescription Benefit:?Anth[employer] Living Will/HPOA: Pt does not have LW/HPOA but would like AD info. AD info provided to pt. LNOK: Nir Soler, Living Arrangements: Pt lives with in 1 story home with laundry in basement and states no concerns at home. Pt states her daughter does laundry so that she does not have to go downstairs. Pt is independent with ADL's. Transportation: Pt's drives and states no transportation concerns. DME/HHC: Pt states no current DME or need for any further DME. Pt has no hx of HHC or SNF. Pt states no concerns with going home at time of discharge. Pt works transportation department supervisor. Pt does smoke 1.5 pack cigarettes daily and states quit drinking ETOH in 11/2021 when her went into rehab for ETOH. Pt voices no further concerns/needs. CM to follow for any further discharge planning/needs. Advised pt to ask for CM if any further questions/concerns/needs arise, voices understanding. Pt Goal: Home? Plan[place] TRISTAN JONES
[2022-02-20 12:47] LABS: Hematocrit 25.1 % (37-47); Hemoglobin 8.3 g/dL (12.0-15.0)
--- NOTE | 2022-02-20 13:44 | CHAPLAIN ---
Type of Pastoral Visit _x__ Initial Visit ___ Follow-up Visit ___ On-call Visit ___ General Patient Visit ___ Spiritual Assessment ___ Family Conference ___ Bereavement ___ Rapid Response ___ Code Blue ___ Other (describe below) Pastoral Care Referral From _x__ Patient ___ Family ___ Nurse ___ Physician ___ Rug Cleaning Supervisor ___ Lockstitch Sleeve Setter ___ Other (describe below) Sacrament/Intervention _x__ Active listening ___ Anointing ___ Anabaptist ___ Bereavement ___ Communion _x__ Sunshine exploration ___ _x__ Life review _x__ Prayer ___ Reconciliation ___ Sacrament of Sick _x__ Supportive presence ___ Wedding ___ Other (describe below) Pastoral Comments patient states that I thought it would be good to have someone to talk to; pt gives a brief life review and then more details about family issues and new health concerns for self; pt identifies herself as a believer in God and expresses openness to prayer and spiritual support; 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
[2022-02-20] MEDS: Atorvastatin Calcium 10 MG Tablet PO (21:24)
[2022-02-21] VITALS (10 sets, daily range): BP systolic 103–153; BP diastolic 58–96; PULSE 79–93; RESP 12–18; TEMP 36.4–36.8; O2SAT 94–100
[2022-02-21] MEDS: 0.9% Normal Saline 1,000 ML 100 ML IV (03:37)
[2022-02-21 05:50] LABS: Absolute Lymphocyte Count 1.05 X10^3/uL (0.83-4.51); Absolute Neutrophil Count 5.3 X10^3/uL (2.0-7.7); Basophil# 0.02 X10^3/uL; Basophil% 0.3 % (0-1); Eosinophil# 0.08 X10^3/uL; Eosinophils% 1.1 % (0-5); Hematocrit 22.4 % (37-47); Hemoglobin 7.3 g/dL (12.0-15.0); Lymphocyte # 1.05 X10^3/ul (0.83-4.51); Lymphocyte % 14.5 % (19-41); Mean Corp Hgb Conc 32.6 g/dL (32-36); Mean Corpuscular Hgb 29.8 pg (27.0-32.0); Mean Corpuscular Volume 91.4 fL (81-99); Mean Platelet Vol. 8.1 fl (6.2-12.0); Monocyte# 0.76 X10^3/uL; Monocyte% 10.5 % (0-10); NRBC Flagged by Analyzer 0 % (0-5); Neutrophil # 5.27 X10^3/uL (2.7-7.7); Neutrophil % 72.5 % (47-70); Platelet Count 425 K/mm3 (150-450); RBC Distribution Width CV 15.3 % (11.6-14.6); RBC Distribution Width SD 51.1 fl (35.1-43.9); Red Blood Count 2.45 M/mm3 (4.2-5.4); White Blood Count 7.3 K/mm3 (4.4-11.0)
[2022-02-21] MEDS: Gabapentin 300 MG Capsule PO ×2 (05:55→13:20)
[2022-02-21 06:26] LABS: Anion Gap 6 (5-15); BUN 19 mg/dL (7-18); BUN/Creat Ratio 13.1 RATIO (10-20); Calcium,Total 8.7 mg/dL (8.5-10.1); Chloride 110 mmol/L (98-107); Creatinine, Serum 1.45 mg/dL (0.55-1.02); EST Glomerular Filtration Rate 39 mL/min (>60); Est Glom Filt Rate - Afr Amer 47 mL/min (>60); Estimated Creatinine Clearance 27.78 ml/min; Glucose 92 mg/dL (74-106); Potassium 4.7 mmol/L (3.5-5.1); Sodium Level 139 mmol/L (136-145)
[2022-02-21] MEDS: Ipratropium/Albuterol Sulfate 3 ML AMPUL.NEB INHALATION (07:22)
[2022-02-21] MEDS: dexAMETHasone 4 MG Tablet PO (09:16)
--- NOTE | 2022-02-21 16:17 | DCINST_ITS ---
Discharge Instructions Diet Discharge Diet: No restrictions Activity Discharge Activity: Return to Normal Activity Weight Bearing Status: Full weight bearing Follow Up Care Test Results: Test results from this visit will be discussed in further detail at your follow- up appointment, if applicable. Discharge Plan Admission Admit Date/Time: 02/19/22 13:42 Primary Reason for Your Visit: anemia Attending Provider: Mick Mcgrath Primary Care Provider: [facility] Patti Bernstein Consulting Providers: Mason Brenner Discharge Orders/Prescriptions Prescriptions: New pantoprazole [Protonix] 40 mg tablet,delayed release (DR/EC) 40 mg PO BID Qty: 60 0RF sucralfate [Carafate] 1 gram tablet 1 g PO .QID Qty: 120 0RF Continued Breztri Aerosphere 160-9-4.8 mcg/actuation HFA aerosol inhaler 2 inh inhalation BID gabapentin 300 mg capsule 300 mg PO TID losartan 100 mg tablet 100 mg PO DAILY Label Comments: PT STOPPED TAKING ON 02/15/22 DUE TO BP BEING LOW. tizanidine 4 mg tablet 4 mg PO BID PRN (Reason: MUSCLE RELAXER) simvastatin 20 mg tablet 20 mg PO QHS hydrocodone-acetaminophen 5-325 mg tablet 1 tab PO Q8H PRN (Reason: Pain) Label Comments: TAKE 1 TABLET BY MOUTH EVERY 8 HOURS NEEDED FOR PAIN dexamethasone [Decadron] 4 mg tablet 4 mg PO DAILY Qty: 30 0RF No Action clopidogrel 75 mg tablet 75 mg PO DAILY Label Comments: PT STOPPED TAKING DUE TO UPCOMING PROCEDURES. naproxen sodium [Aleve] 220 mg Tablet 440 mg PO BID PRN (Reason: Pain) [facility] See Referral Note (next Friday-get a CBC repeated) Disposition Disposition (needs filled in before D/C Order can be placed): Home, Self Care
[2022-02-21 16:50] LABS: Hematocrit 30.5 % (37-47); Hemoglobin 9.8 g/dL (12.0-15.0)
--- NOTE | 2022-02-21 19:41 | PCM.DC.SUM ---
Providers Date of Admission: 02/19/22 Date of Discharge: 02/21/22 Primary Care Physician: [facility] Consultations 02/19/22 15:25 Consult: Gastroenterology Routine Consulting Provider: Sara Gastroenterchristal Reason for Consult: GI bleed from gastric mass EMERGENT Consult: No MD Notified: Yes Date Notified: 02/19/22 Time Notified: 15:43 Method of Notification: Text Reason For Visit: GI BLEED FROM POSSIBLE GASTRIC CARCINOMA Diagnosis Discharge Diagnosis (1) Acute upper gastrointestinal bleeding: Status: Acute Code(s): K92.2 - Gastrointestinal hemorrhage, unspecified Plan 1. Acute upper GI hemorrhage secondary to gastric cancer requiring blood transfusion #2 essential hypertension #3 hyperlipidemia Medications at Discharge Home Medications budesonide 160 mcg-glycopyr 9 mcg-formot 4.8 mcg/actuation HFA inhaler (Breztri Aerosphere) 2 inh inhalation BID breathing 01/28/22 gabapentin 300 mg capsule 300 mg PO TID nerve pain 01/28/22 losartan 100 mg tablet 100 mg PO DAILY blood pressure 01/28/22 tizanidine 4 mg tablet 4 mg PO BID PRN MUSCLE RELAXER 01/28/22 clopidogrel 75 mg tablet 75 mg PO DAILY anti platelet 02/08/22 simvastatin 20 mg tablet 20 mg PO QHS CHOLESTEROL 02/08/22 dexamethasone 4 mg tablet (Decadron) 4 mg PO DAILY #30 tabs 02/18/22 naproxen sodium 220 mg tablet (Aleve) 440 mg PO BID PRN Pain 02/19/22 pantoprazole 40 mg tablet,delayed release (Protonix) 40 mg PO BID #60 tabs 02/21/22 sucralfate 1 gram tablet (Carafate) 1 g PO .QID #120 tabs 02/21/22 hydrocodone-acetaminophen 5-325mg 5mg-325mg 1 tab PO Q8H PRN Pain 20 days #60 tabs 02/22/22 Hospital Course Operations None Procedures EGD Summary of Care Provided Minutes Spent on Discharge: 31 Hospital Course: 66-year-old white female was seen in the emergency room at [facility] after being sent to the ER due to outpatient labs which demonstrated hemoglobin of 5.8. The patient is being worked up for a gastric mass as an outpatient. Patient was admitted to PCU, she was seen in consultation by gastroenterology and was given a blood transfusion, labs were monitored, EGD was performed which showed evidence of gastric cancer On 02/21/2022, patient was seen and examined: On examination she appeared in good health and spirits, she does not appear to be in any distress. Vital signs as documented. Skin warm and dry and without overt rashes. Neck without JVD, thyroid appears normal, trachea is midline, neck is supple. Lungs clear, normal air movement was noted. Heart exam notable for regular rhythm, normal sounds and absence of murmurs, rubs or gallops. Abdomen unremarkable and without evidence of organomegaly, masses, or abdominal aortic enlargement, bowel sounds are present in all 4 quadrants, no abdominal tenderness was noted. Extremities nonedematous, no cyanosis was noted, no clubbing was noted. Neuro: Cranial nerves II through XII are grossly intact, no focal motor deficits were noted, sensation to light touch and pinprick is intact, motor exam 5/5 throughout. Psych: Patient is alert and oriented x3, she does not appear anxious or depressed, she does not appear agitated. Patient was stable for discharge home on 02/21/2022.. Weight / BMI Weight Weight: 65.4 kg Body Mass Index (BMI) 27.5 ABG / Lab / Microbiology Data Result Diagrams: 02/21/22 16:38 02/21/22 05:38 Laboratory: Laboratory Results - last 24 hr 02/19/22 12:35: Crossmatch See Detail 02/21/22 05:38: WBC 7.3, RBC 2.45 L, Hgb 7.3 L, Hct 22.4 L, MCV 91.4, MCH 29.8, MCHC 32.6, RDW Std Deviation 51.1 H, RDW Coeff of Real 15.3 H, Plt Count 425, MPV 8.1, Immature Gran % (Auto) 1.100 H, Neut % (Auto) 72.5 H, Lymph % (Auto) 14.5 L, Hardy % (Auto) 10.5 H, Eos % (Auto) 1.1, Baso % (Auto) 0.3, Absolute Neuts (auto) 5.3, Absolute Lymphs (auto) 1.05, Nucleated RBC % 0 02/21/22 05:38: Sodium 139, Potassium 4.7, Chloride 110 H, Carbon Dioxide 23.0, Anion Gap 6, BUN 19 H, Creatinine 1.45 H, Estim Creat Clear Calc 27.78, Est GFR (MDRD) Af Amer 47 L, Est GFR (MDRD) Non-Af 39 L, BUN/Creatinine Ratio 13.1, Glucose 92, Calcium 8.7 02/21/22 16:38: Hgb 9.8 L, Hct 30.5 L D/C Instructions Discharge Diet: No restrictions Weight Bearing Status: Full weight bearing Meaningful Use Info Meaningful Use Diagnoses (Choose all that apply): None applicable Discharge Plan Admission Admit Date/Time: 02/19/22 13:42 Primary Reason for Your Visit: anemia Attending Provider: Mick Mcgrath [facility] Providers: Mason Brenner Discharge Orders/Prescriptions Prescriptions: New pantoprazole [Protonix] 40 mg tablet,delayed release (DR/EC) 40 mg PO BID Qty: 60 0RF sucralfate [Carafate] 1 gram tablet 1 g PO .QID Qty: 120 0RF Continued Breztri Aerosphere 160-9-4.8 mcg/actuation HFA aerosol inhaler 2 inh inhalation BID gabapentin 300 mg capsule 300 mg PO TID losartan 100 mg tablet 100 mg PO DAILY Label Comments: PT STOPPED TAKING ON 02/15/22 DUE TO BP BEING LOW. tizanidine 4 mg tablet 4 mg PO BID PRN (Reason: MUSCLE RELAXER) simvastatin 20 mg tablet 20 mg PO QHS dexamethasone [Decadron] 4 mg tablet 4 mg PO DAILY Qty: 30 0RF No Action clopidogrel 75 mg tablet 75 mg PO DAILY Label Comments: PT STOPPED TAKING DUE TO UPCOMING PROCEDURES. hydrocodone-acetaminophen 5-325 mg tablet 1 tab PO Q8H PRN (Reason: Pain) 20 Days Qty: 60 0RF naproxen sodium [Aleve] 220 mg Tablet 440 mg PO BID PRN (Reason: Pain) [facility] - See Referral Note (next Friday-get a CBC repeated) Disposition Disposition (needs filled in before D/C Order can be placed): Home, Self Care Charges/Coding Visit Charges Inpatient E&M: 15707 Disch Hosp
== END 2022-02-21 17:40 | disposition home or self-care (01) | DRG 374 ==
LOC: ED 13:53 → MS3 14:37 → PCU 14:50
PROVIDERS: Internal Medicine Gastroenterology; Admitting Provider Family Medicine; Emergency Provider Emergency Medicine; Visit Provider Internal Medicine
PROC: 0DJ08ZZ Inspection of Upper Intestinal Tract, Via Natural or Artificial Opening Endoscopic (ICD-10-PCS; CPT 43235; principal; 2022-02-20 07:10)
DX: C16.1 Malignant neoplasm of fundus of stomach (principal); K25.0 Acute gastric ulcer with hemorrhage; E43 Unspecified severe protein-calorie malnutrition; D62 Acute posthemorrhagic anemia; E78.5 Hyperlipidemia, unspecified; I10 Essential (primary) hypertension; F17.210 Nicotine dependence, cigarettes, uncomplicated; M89.8X9 Other specified disorders of bone, unspecified site; R63.4 Abnormal weight loss; Z68.28 Body mass index [BMI] 28.0-28.9, adult; Z79.02 Long term (current) use of antithrombotics/antiplatelets; Z79.899 Other long term (current) drug therapy; Z28.310 Unvaccinated for COVID-19; Z28.9 Immunization not carried out for unspecified reason; Z80.3 Family history of malignant neoplasm of breast
CPT/HCPCS: 36415; 80048; 80053; 82941; 83615; 85014; 85018; 85025; 85610; 85730; 86850; 86900; 86901; 86920; 86922; 88305; 88341; 88342; 93005; 94640; 99284; 99406; J7030; P9016; A4216; J2405

== ENCOUNTER → 2022-02-19 | Outpatient (CLI) | payer MEDICARE, SELFPAY ==
[2022-02-19 09:44] LABS: Absolute Lymphocyte Count 0.57 X10^3/uL (0.83-4.51); Absolute Neutrophil Count 10.8 X10^3/uL (2.0-7.7); Basophil# 0.03 X10^3/uL; Basophil% 0.2 % (0-1); Hematocrit 18.6 % (37-47); Hemoglobin 5.8 g/dL (12.0-15.0); Lymphocyte # 0.57 X10^3/ul (0.83-4.51); Lymphocyte % 4.7 % (19-41); Mean Corp Hgb Conc 31.2 g/dL (32-36); Mean Corpuscular Hgb 28.6 pg (27.0-32.0); Mean Corpuscular Volume 91.6 fL (81-99); Mean Platelet Vol. 8.3 fl (6.2-12.0); Monocyte# 0.51 X10^3/uL; Monocyte% 4.2 % (0-10); NRBC Flagged by Analyzer 0 % (0-5); Neutrophil # 10.81 X10^3/uL (2.7-7.7); POSITIVE COUNT YES; POSITIVE DIFFERENTIAL YES; Platelet Count 710 K/mm3 (150-450); RBC Distribution Width CV 14.3 % (11.6-14.6); RBC Distribution Width SD 48.2 fl (35.1-43.9); Red Blood Count 2.03 M/mm3 (4.2-5.4)
[2022-02-19 09:51] LABS: Differential Indicated SCAN CRITERIA MET
[2022-02-19 10:10] LABS: ALB/GLOB Ratio 0.5 RATIO (0.9-2.4); AST(SGOT) 20 U/L (15-37); Alanine Aminotransfer ALT/SGPT 44 U/L (13-56); Albumin, Serum 2.8 g/dL (3.2-5.0); Alkaline Phosphatase 61 U/L (45-117); Anion Gap 14 (5-15); BUN 34 mg/dL (7-18); Calcium,Total 9.8 mg/dL (8.5-10.1); Chloride 97 mmol/L (98-107); EST Glomerular Filtration Rate 32 mL/min (>60); Est Glom Filt Rate - Afr Amer 39 mL/min (>60); Globulin 5.1 g/dL (2.2-4.2); Glucose 196 mg/dL (74-106); LDH 231 U/L (84-246); Potassium 3.7 mmol/L (3.5-5.1); Protein, Total 7.9 g/dL (6.4-8.2); Sodium Level 132 mmol/L (136-145)
[2022-02-19 10:35] LABS: Differential Comment SCANNED
[2022-02-20 12:25] LABS: Pathologist Review Reviewed
[2022-02-22 10:11] LABS: Gastrin, Serum 250 pg/mL (0-115)
== END | disposition home or self-care (01) ==
LOC: LAB 08:59
PROVIDERS: Referring Provider Nurse Practitioner Adult Health; Visit Provider Nurse Practitioner Adult Health
DX: M89.8X9 Other specified disorders of bone, unspecified site (principal); K31.89 Other diseases of stomach and duodenum
CPT/HCPCS: 36415; 80053; 82941; 83615; 85025

== ENCOUNTER 2022-02-26 14:25 | Outpatient (CLI) | payer MEDICARE, SELFPAY ==
--- NOTE | 2022-02-26 14:27 | VDLE_ITS ---
Reason For Study: swelling RIGHT LEFT GSV is normal. GSV is normal. CFV is compressible, spontaneous, phasic, CFV is compressible, spontaneous, phasic, competent and demonstrates normal competent, and demonstrates normal augmentation. augmentation. FV is compressible, spontaneous, phasic, FV is compressible, spontaneous, phasic, competent and demonstrates normal competent and demonstrates normal augmentation. augmentation. POP V is compressible, spontaneous, phasic, POP V is compressible, spontaneous, phasic, competent and demonstrates normal competent and demonstrates normal augmentation. augmentation. T/P Trunk is compressible. T/P Trunk is compressible. PTV is compressible. PTV is compressible. RT PerV is compressible. LT PerV is compressible. Procedure This is a venous duplex using B-mode, color flow and spectral Doppler. Exam performed in department. The exam was diagnostic. A preliminary report was called and/or faxed to Dr. Valles. VL/Venous Duplex US - Marck Extrem Interpretation Summary No evidence for acute deep venous thrombosis bilateral lower extremities with p atent and compressible bilateral great saphenous veins. Ordering Physician: Golden Valles Performed By: Robbie Yanez RVT
== END 2022-02-26 23:59 | disposition home or self-care (01) ==
LOC: CVS 14:26
PROVIDERS: Referring Provider Internal Medicine Medical Oncology; Visit Provider Internal Medicine Medical Oncology
DX: Z51.11 Encounter for antineoplastic chemotherapy (principal); C85.99 Non-Hodgkin lymphoma, unspecified, extranodal and solid organ sites; M79.89 Other specified soft tissue disorders
CPT/HCPCS: 36415; 80053; 82784; 83615; 83883; 84165; 85025; 85045; 85610; 85652; 85730; 86334; 93970

== ENCOUNTER → 2022-03-01 | Outpatient (CLI) | payer MEDICARE, SELFPAY ==
[2022-03-01] VITALS (9 sets, daily range): BP systolic 143–208; BP diastolic 53–102; PULSE 66–97; RESP 12–20; TEMP 36.7; O2SAT 93–99; BMI 28.2
--- NOTE | 2022-03-01 | IMM_PTH ---
PATIENT: DEVIN BALLESTEROS LOC: CT U#:[id number] AGE/SX: 66/F ROOM: RE03/01/[address]: Dr. Golden Valles MD : 1955 BED: DIS: 03/01/2022 SPEC #: [id number] RECD: 03/04/22 14:27 STATUS: RICCARDO REQ #: [id number] ELLA: 03/01/22 00:[address]: Goldne Valles DEPT: IMMUNOHISTOCHEMISTRY RECD BY: Ellie Gordon ENTERED: 03/04/22 14:30 SP TYPE: IMMUNO OTHR DR: [facility] Tissues: Pelvis, NOS Procedures: BCL-2 (add) BCL-6 (add) CD10 (add) CD20 (add) CD23 (add) CD43 (add) CD45 (add) CD5 (add) CD79A (add) CYCLIN (add) KI-67 (add) MUM1 (add) C-MYC (add) CD3 (initial) PHYSICIAN & [address] [address] SPECIMEN INFORMATION: Tissue Source: Right pelvis mass Clinical Info: Right pelvis mass Specimen Number: [id number] CPT code: 92431, 03922 x13 METHODOLOGY: Deparaffinized sections of prefer/formalin-fixed tissue or PAP/DQ stained slides are incubated with monoclonal/polyclonal antibodies/oligonucleotide probes. Localization is made via biotin free immunoperoxidase method. Appropriate controls are performed and reacted as expected. Results on target cell population are indicated in the following table: RESULTS: ANTIBODY / CLONE RESULT CD3 (PS1) negative CD5 (SP10) negative CD20 (L26) positive CD43 (L60) negative CD45 (RP2/18) positive CD79a (11E3) positive CD10 (56C6) positive CD23 (1B12) negative BCL-2 (bcl-2/100/D5) negative BCL-6 (QB971F/A8) positive Cyclin D1/BCL-1 (SP4) negative Ki-67 (30-9) positive, high C-MYC (Y69) positive MUM1 (MRQ-43) negative These tests were developed and their performance characteristics determined by [facility]. They may not have been cleared or approved by the U.S. Food and Drug Administration. The FDA has determined that such clearance or approval is not necessary. The above immunohistochemical/dualISH markers are ordered and reviewed by the Pathologist. 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 SJ:ivonne 03/05/2022 Case has been reviewed in consultation with Dr. Rivera who concurs with the above diagnosis. IDC:AM
--- NOTE | 2022-03-01 | IMM_PTH ---
PATIENT: DEVIN BALLESTEROS LOC: CT U#:[id number] AGE/SX: 66/F ROOM: RE03/01/[address]: Dr. Golden Valles MD : 1955 BED: DIS: 03/01/2022 SPEC #: [id number] RECD: 03/04/22 14:26 STATUS: RICCARDO REFroylan #: [id number] ELLA: 03/01/22 00:[address]: Golden Valles DEPT: IMMUNOHISTOCHEMISTRY RECD BY: Ellie Gordon ENTERED: 03/04/22 14:27 SP TYPE: IMMUNO OTHR DR: [facility] Tissues: Bone marrow of iliac crest Procedures: CD20 (add) CD45 (add) CD5 (add) CD79A (add) CD3 (initial) PHYSICIAN & INSTITUTION [place] [id number] SPECIMEN INFORMATION: Tissue Source: Bone marrow right hip core Clinical Info: Gastric lymphoma, right iliac mass/bone mets Specimen Number: [id number] CPT code: 10333, 33317 x4 METHODOLOGY: Deparaffinized sections of prefer/formalin-fixed tissue or PAP/DQ stained slides are incubated with monoclonal/polyclonal antibodies/oligonucleotide probes. Localization is made via biotin free immunoperoxidase method. Appropriate controls are performed and reacted as expected. Results on target cell population are indicated in the following table: RESULTS: ANTIBODY / CLONE RESULT CD3 (PS1) negative CD5 (SP10) negative CD20 (L26) positive CD45 (RP2/18) positive CD79a (11E3) positive These tests were developed and their performance characteristics determined by [facility]. They may not have been cleared or approved by the U.S. Food and Drug Administration. The FDA has determined that such clearance or approval is not necessary. The above immunohistochemical/dualISH markers are ordered and reviewed by the Pathologist. INTERPRETATION: Bone marrow right hip core: Paratrabecular B-lymphocytes with marked crushed artifacts, suspicious for involvement by B-cell lymphoproliferative disorder. See comment. SJ:ivonne 03/05/2022 Comment: Further evaluation is not possible due to crushed artifacts. Case has been reviewed in consultation with Dr. Rivera who concurs with the above diagnosis. IDC:AM
--- NOTE | 2022-03-01 | BMB_PTH ---
PATIENT: DEVIN BALLESTEROS LOC: CT U#:[id number] AGE/SX: 66/F ROOM: RE03/01/[address]: Dr. Golden Valles MD : 1955 BED: DIS: 03/01/2022 SPEC #: [id number] RECD: 03/01/22 13:58 STATUS: RICCARDO REFroylan #: [id number] ELLA: 03/01/22 00:[address]: Golden Valles DEPT: BONE MARROW RECD BY: Pro Kemp ENTERED: 03/01/22 13:59 SP TYPE: BMB MARKOS DR: [facility] Tissues: Bone marrow, NOS Procedures: Decalcification bone/plaque Bone Marrow Core Biopsy Iron Stain Bone Marrow HEADER OPERATION: Bone marrow biopsy PRE-OP DIAGNOSIS: Gastric lymphoma, right iliac mass/bone mets TISSUE SUBMITTED: Bone marrow right hip core BONE MARROW DIAGNOSIS Bone marrow, core biopsy: Paratrabecular B-lymphocytes with marked crushed artifacts, suspicious for involvement by B-cell lymphoproliferative disorder See comment. SJ:rg 03/04/2022 COMMENT Immunohistochemistry ([id number]) supports the above diagnosis. Further evaluation is not possible due to crushed artifacts. Iron, reticulin and PAS stains are performed with matched controls and non-contributory. Normal hematopoietic cells are not seen Please make reference to additional surgical specimen ([id number]), right pelvis soft tissue mass, CT-guided core biopsy, consistent with involvement by non-Hodgkin diffuse large B-cell lymphoma, follicle center cell origin. Please also make reference to previous specimen ([id number]) gastric mass, biopsy with diagnosis of consistent with involvement by non-Hodgkin lymphoma, diffuse large B-cell type, follicle center cell origin. Case has been reviewed in consultation with Dr. Rivera who concurs with the above diagnosis. IDC:AM BONE MARROW STUDY Slides are reviewed. BONE MARROW GROSS Received is a container labeled with the patient's name and designated bone marrow right hip. The specimen consists of an elongated piece of bone measuring 1 cm in length and 0.1 cm in diameter. The specimen is totally submitted in one cassette after decalcification. No specimen was submitted for bone marrow clot and bone marrow aspirate smears. / NII:ivonne 03/01/2022 TC: 5 CPT: 87143, 27968 x3, 77111
--- NOTE | 2022-03-01 | ASPIGT_PTH ---
PATIENT: DEVIN BALLESTEROS LOC: CT U#:[id number] AGE/SX: 66/F ROOM: RE03/01/[address]: Dr. Golden Valles MD : 1955 BED: DIS: 03/01/2022 SPEC #: [id number] RECD: 03/01/22 13:59 STATUS: RICCARDO REFroylan #: [id number] ELLA: 03/01/22 00:[address]: Golden Valles DEPT: SURGICAL PATHOLOGY RECD BY: Pro Kemp ENTERED: 03/01/22 14:00 SP TYPE: ASP RAD MARKOS DR: [facility] Tissues: Pelvis, NOS Procedures: FNA Specimen Adequacy Special Stain Group II Surgery Specimen Level IV Imprint (control) HEADER OPERATION: CT-guided soft tissue mass, right pelvis PRE-OP DIAGNOSIS: Mass TISSUE SUBMITTED: Right pelvis mass 18-gauge x6 MICROSCOPIC DIAGNOSIS Right pelvis soft tissue mass, CT-guided core biopsy: 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 See comment. SJ:ivonne 03/04/2022 COMMENT The specimen is evaluated at the time of biopsy by Dr. Alvarado. Immediate Evaluation = Lymphocytes are present. Flow cytometry study from [facility] was cancelled due to low cell yield precludes flow cytometry studies. Immunohistochemistry ([id number]) supports the above diagnosis. The tumor cells are also positive for c-myc. FISH studies can be performed, if clinically indicated, to rule out double hit lymphoma. Please also make reference to previous specimen ([id number]) gastric mass, biopsy with diagnosis of consistent with involvement by non-Hodgkin lymphoma, diffuse large B-cell type, follicle center cell origin. Case has been reviewed in consultation with Dr. Rivera who concurs with the above diagnosis. IDC:AM MICROSCOPIC DESCRIPTION Slides are reviewed. GROSS DESCRIPTION Received in fixative is one container labeled with the patient's name and designated right pelvis soft tissue mass. The specimen consists of multiple irregular fragments of kendall soft tissue that in aggregate measure 1.5 x 0.1 x 0.1 cm. Four touch imprints are prepared. One core is submitted for flow cytometry study. The entire specimen is submitted in one cassette. / NII:ivonne 03/01/2022 TC:0 CPT: 64802, 10403
--- NOTE | 2022-03-01 11:54 | CT_ITS ---
PROCEDURE: CT GUIDED BONE marrow biopsy of the right iliac bone. DATE: 03/01/2022. INDICATION: Female, 66 years old. History of non-Hodgkin''s lymphoma. PHYSICIAN: Rios Caraballo M.D. RADIATION DOSAGE (If Supplied By Facility): CTDIvol = ( 8 ) mGy, DLP = ( 320.26 ) mGycm. Individualized dose optimization techniques were utilized. PROCEDURE: The risks, benefits, and alternatives to the procedure were explained to the patient. The specific risk of hemorrhage requiring further treatment or intervention was detailed and accepted. Follow-up instructions were discussed with the patient as well. Written informed consent was obtained. The patient was brought into the CT suite and placed in the prone position. . An appropriate entry site overlying the posterior right iliac bone was identified. The overlying skin was prepped and draped in the usual sterile fashion. 1% lidocaine was administered subcutaneously for local anesthesia. Conscious sedation was performed. The patient received 2 mg of VERSED and 75 mcg of FENTANYL intravenously. Conscious sedation was started at 1:21 PM and terminated at 1:48 PM. The patient was independently monitored by the department nurse. Under CT guidance, bone marrow apices were performed utilizing an 11-gauge bone marrow biopsy kit. The specimens were then placed in the appropriate fluid and transported to the laboratory for analysis. Hemostasis was obtained. The patient tolerated the procedure well without immediate complications. CT/Biopsy/Inj or Needle Placement IMPRESSION: Successful CT guided right iliac bone marrow biopsy, as described above. Electronically Signed: Rios Caraballo MD at 14:27 EDT ,
--- NOTE | 2022-03-01 13:00 | CT_ITS ---
PROCEDURE: CT GUIDED biopsy of the left iliac mass. DATE: 03/01/2022. INDICATION: Female, 66 years old. History of non-Hodgkin''s lymphoma. PHYSICIAN: Rios Caraballo M.D. RADIATION DOSAGE (If Supplied By Facility): CTDIvol = ( 8 ) mGy, DLP = ( 320.26 ) mGycm PROCEDURE: The risks, benefits, and alternatives to the procedure were explained to the patient. The specific risk of hemorrhage requiring further treatment or intervention was detailed and accepted. Follow-up instructions were discussed with the patient as well. Written informed consent was obtained. The patient was brought into the CT suite and placed in the prone position. . An appropriate entry site was identified. The overlying skin was prepped and draped in the usual sterile fashion. 1% lidocaine was administered subcutaneously for local anesthesia. Conscious sedation was performed. The patient received 2 mg of VERSED and 75 mcg of FENTANYL intravenously. Conscious sedation was started on 1:21 PM and terminated at 1:48 PM. The patient was independently monitored by the department nurse. Under CT guidance, a total of 6 passes were performed utilizing an 18-gauge core biopsy needle. The specimens were then placed in the appropriate fluid and transported to the laboratory for analysis. Hemostasis was obtained. The patient tolerated the procedure well without immediate complications. CT/Biopsy/Inj or Needle Placement IMPRESSION: Successful CT guided biopsy of the right iliac mass, as described above. The conscious sedation protocol was followed. Electronically Signed: Rios Caraballo MD at 14:31 EDT ,
[2022-03-01] MEDS: 0.9% Normal Saline 250 ML IV.SOLN. (13:20)
[2022-03-01] MEDS: Midazolam 2 MG/2 ML Syringe IV (13:21)
[2022-03-01] MEDS: fentaNYL 100 MCG/2 ML Ampul IV ×2 (13:23→13:40)
[2022-03-01] MEDS: Lidocaine 2% (5ml sdv) 5 ML VIAL.MPF ×2 (13:35)
== END | disposition home or self-care (01) ==
PROVIDERS: Referring Provider Internal Medicine Medical Oncology; Visit Provider Internal Medicine Medical Oncology
DX: M89.8X9 Other specified disorders of bone, unspecified site (principal)
CPT/HCPCS: 38221; 77012; 88172; 88305; 88311; 88313; 88341; 88342; 99156; J7050; A4216

== ENCOUNTER → 2022-03-07 | Outpatient (CLI) | payer MEDICARE, SELFPAY ==
--- NOTE | 2022-03-07 12:20 | US_ITS ---
STUDY: THYROID ULTRASOUND REASON FOR EXAM: Female, 66 years old. HYPOTHYROIDISM TECHNIQUE: Ultrasound evaluation of the thyroid was performed with real-time and static johnson-scale imaging. COMPARISON: None. FINDINGS: RIGHT LOBE: The right lobe of the thyroid gland measures 3.8 x 1.2 x 1.1 cm. There is a heterogeneous echotexture. There are no demonstrated solid, cystic or complex lesions. LEFT LOBE: The left lobe of the thyroid gland measures 3.4 x 1.1 x 1.0 cm. There is a heterogeneous echotexture. Lower pole cyst measuring 3 x 3 x 2 mm ISTHMUS: The isthmus measures 1 mm. The regional lymph nodes are normal. US/Thyroid IMPRESSION: Heterogeneous echotexture of the thyroid diffusely with tiny left lower pole cyst. Electronically Signed: Tyrese Sharpe DO at 5:18 EDT ,
== END | disposition home or self-care (01) ==
LOC: US 12:19
PROVIDERS: Referring Provider Nurse Practitioner Adult Health; Visit Provider Nurse Practitioner Adult Health
DX: E03.9 Hypothyroidism, unspecified (principal)
CPT/HCPCS: 76536

== ENCOUNTER → 2022-03-08 | Outpatient (CLI) | payer MEDICARE, SELFPAY ==
--- NOTE | 2022-03-08 14:00 | ECHOCSONC_ITS ---
Reason For Study: Pre Chemo Eval Procedure This was a 2D Doppler, Color Flow transthoracic echocardiogram. Myocardial strain analysis was performed in this exam to aid in the assessment of cardiac function. Contrast injection was performed. Exam performed in department. Left Ventricle Normal LV size. Left ventricular systolic function is normal. The estimated ejection fraction is 55 %. Stage 1 diastolic dysfunction. No regional wall motion abnormalities noted. Right Ventricle Normal RV size. Normal systolic function. Atria Normal left atrium. Normal right atrium. Mitral Valve Normal mitral valve. Tricuspid Valve Normal tricuspid valve. Mild tricuspid valve insufficiency. Pulmonary artery systolic pressure is 33 mmHg. Aortic Valve Normal aortic valve. Pulmonic Valve Normal pulmonic valve. Great Vessels Normal aortic root. Pericardium/Pleural No pericardial effusion. Medication Diluted definity 3.5ml given slow IV push to enhance endocardial definition. MMode/2D Measurements & Calculations LVIDd: 4.5 cm IVSd: 0.98 cm Ao root diam: 2.6 cm LVIDs: 2.5 cm LVPWd: 0.82 cm RVDd: 3.4 cm FS: 43.2 % LAV(MOD-bp): 41.2 ml LA A4 area: 14.3 cm2 LA dimension(2D): 3.3 cm LAV(MOD-bp) Indexed: 25.5 ml/m2 LAV(MOD-sp2): 43.5 ml LAV(MOD-sp4): 30.1 ml RA A4 area: 12.3 cm2 Doppler Measurements & Calculations MV E max amaury: 84.7 cm/sec Lat Peak E' Amaury: 10.0 cm/sec Med Peak E' Amaury: 6.6 cm/sec MV A max amaury: 88.5 cm/sec E/E' lat: 8.5 E/E' med: 12.8 MV E/A: 0.96 Ao V2 max: 174.5 cm/sec LV V1 max: 120.5 cm/sec PA V2 max: 71.9 cm/sec Ao max P.2 mmHg LV V1 max P.8 mmHg Ao V2 mean: 122.9 cm/sec Ao mean P.6 mmHg Ao V2 VTI: 37.0 cm TR max amaury: 269.7 cm/sec TR max P.1 mmHg ECHO/ONC Echo Complete W/ Contrast Interpretation Summary Normal LV size. Left ventricular systolic function is normal. The estimated ejection fraction is 55 %. Stage 1 diastolic dysfunction. Pulmonary artery systolic pressure is 33 mmHg. GLS is 16.5 The global longitudinal strain is borderline abnormal. Ordering Physician: Golden Valles Referring Physician: [facility] Performed By: Cherelle Lora, JOSE, RVT
== END | disposition home or self-care (01) ==
LOC: CVS 13:58
PROVIDERS: Referring Provider Internal Medicine Medical Oncology; Visit Provider Internal Medicine Medical Oncology
DX: Z79.899 Other long term (current) drug therapy (principal)
CPT/HCPCS: 93306; 93356; Q9957; A4216; C8929

== ENCOUNTER 2022-03-15 10:40 | Day surgery (SDC) | payer MEDICARE, SELFPAY ==
[2022-03-15] VITALS (7 sets, daily range): BP systolic 117–148; BP diastolic 63–76; PULSE 65–79; RESP 16; TEMP 35.8–36.5; O2SAT 96–100; BMI 27.5
--- NOTE | 2022-03-15 11:27 | PCM.HP.BLA ---
History and Physical Date of Admission: 03/15/22 Date of Service:? 03/08/22 MR#: [id number] Acct: [id number] Name:DEVIN HOLDEN Rep #: [id number] : 1955 ? ? Provider: Dr. Kane Byers MD Age/Sex:? 66/F ? ? Location: [facility] Status: Signed Intake Vital Signs ? 03/08/2208:16 Height 5 ft Weight: 142 lb BMI 27.7 BP 121/60 H Blood Pressure Location Rt brachial Position Sitting Respiration 16 Pulse 93 Pulse Source Monitor Temp 97.5 F L Temp Source Temporal Pulse Oximetry (%) 99 Oxygen Delivery Method room air Intake Visit Reasons:?PORT PLACEMENT Chief Complaint: consult for port placement Station [employer] Apprentice Required: No Accompanied by: Is patient in pain?: No Allergies No Known Allergies Allergy (Verified 03/08/22 08:17) Medications budesonide 160 mcg-glycopyr 9 mcg-formot 4.8 mcg/actuation HFA inhaler ([employer]) 2 inh inhalation BID breathing 01/28/22 [History Confirmed 03/08/22] gabapentin 300 mg capsule 300 mg PO TID nerve pain 01/28/22 [History Confirmed 03/08/22] losartan 100 mg tablet 100 mg PO DAILY blood pressure 01/28/22 [History Confirmed 03/08/22] clopidogrel 75 mg tablet 75 mg PO DAILY anti platelet 02/08/22 [History Confirmed 03/08/22] dexamethasone 4 mg tablet (Decadron) 4 mg PO DAILY #30 tabs 02/18/22 [Rx Confirmed 03/08/22] pantoprazole 40 mg tablet,delayed release (Protonix) 40 mg PO BID #60 tabs 02/21/22 [Rx Confirmed 03/08/22] sucralfate 1 gram tablet (Carafate) 1 g PO .QID #120 tabs 02/21/22 [Rx Confirmed 03/08/22] hydrocodone-acetaminophen 5-325mg 5mg-325mg 1 tab PO Q8H PRN Pain 20 days #60 tabs 02/22/22 [Rx Confirmed 03/08/22] allopurinol 300 mg tablet 300 mg PO DAILY #30 tabs 03/07/22 [Rx Confirmed 03/08/22] PFSH Medical History Abdominal pain Abnormal weight loss Dizziness Essential (primary) hypertension Lower abdominal pain, unspecified Smoker Surgical History?(Updated 03/08/22 @ 08:16 by Lisa Ash) S/P cataract extraction Family History? Grandmother Breast cancer HypertensionSister Cancer ?? ? CERVICALSister Cancer ?? ? UTERUSBrother Cancer ?? ? ESOPHAGEALBrother Cancer ?? ? PROSTATEMother Hypertension Diabetes Social History? Smoking Status:? Current every day smoker tobacco type: cigarettes substance use type:? does not use HPI HPI HPI: DEVIN BALLESTEROS, is a 66 F who presents to the office today for consideration of port placement.? 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 There is also mention of a destructive bone lesion on a CT of the abdomen pelvis first on 01/28/2022.? They have met with oncology and plans are to begin chemotherapy next week.? Patient has no prior history of central line placement.? Patient has no pacemaker or intracardiac defibrillator.? Patient has a history of chronic renal dysfunction but there have been no recent discussions of placing them on hemodialysis. Mrs. Ballesteros is also on concurrent antiplatelet therapy with Plavix for a relatively recent diagnosis of carotid artery stenosis (bilateral).? She states that she was due to have a surgical evaluation with Dr. Soto, but then was found to have her metastatic cancer diagnosis. ROS General General: Yes weight change and fatigue; No appetite, colon cancer, breast cancer or weakness HEENT HEENT: Yes eye surgery; No difficulty swallowing, eye injury, swollen glands or hoarseness Endo Endocrine: Yes thyroid disease; No diabetes mellitus, thyroid cancer, Hair loss, heat intolerance or cold intolerance Skin Skin: No rash or changing moles Breast Breast: No left breast lump, right breast lump, nipple discharge, breast pain, abnormal mammogram, abnormal US or breast enlargement Musc Musculoskeletal: Yes back problems and arthritis; No rheumatoid arthritis, gout or joint pain Cardio Cardiovascular: Yes high blood pressure; No murmur, pacemaker, heart disease, atrial fibrillation, heart attack, heart stent, palpitations, shortness of breat with exertion or chest pain Psych Psychiatric: Yes anxiety; No depression or hearing voices Resp Respiratory: No shortness of breath, No sleep apnea, Yes cough, No COPD, No asthma, No emphysema and No wheezing Gastro Gastrointestinal: No abdominal pain, No nausea or vomiting, No diarrhea, No constipation, No blood in stool, No acid reflux, Yes hemorrhoids, No ulcers, No gallbladder problem and No black,tarry stools Trav Hematologic: Yes blood thinners, No blood disorders, No bleeding, No anemia and No blood clots Neuro Neurologic: No system reviewed and no additional complaints, except as documented, No as per HPI, No abnormal gait, No abnormal hearing, No abnormal movements, No abnormal speech, No behavioral changes, No burning sensations, No confusion, No convulsions, No disequilibrium, No dizziness, No localized weakness, No frequent falls, No headache(s), No lack of coordination, No loss of vision, No memory loss, No numbness, No other visual disturbances, No radicular pain, No restless legs, No sensory deficit, No syncope, No tingling, No tremor(s), No weakness and No other Exam Const General: cooperative Orientation: alert, awake and oriented x3 Neck Other: No bruit Chest Chest palpation & inspection: normal inspection of the chest and No rash Resp Auscultation: wheezes inspiratory wheezes and scattered wheezes Cardio Rate: regular rate Rhythm: regular rhythm Assessment and Plan Assessment and Plan (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 Pt does not want to do therapy outside [facility] because of hardships that she is facing. (2) Bone destruction: ?Status:?Chronic ?Comment: Biopsy shows lymphoma. Plan This is a 66-year-old female who presents with recently diagnosed metastatic gastric lymphoma.? She has met with oncology and plans are to begin chemotherapy next week.? She reports the initial date discussed was 03/14/2022.? However, patient is currently taking Plavix for her diagnosis of carotid artery stenosis and require 7 days off this medication.? Additionally my first OR availability for this case is 03/15/2022 and oncology has confirmed they can accommodate this schedule.? Therefore we will plan for port placement the morning of 03/15/2022 under local MAC and patient could then proceed with her first treatment thereafter.? The procedure has been described in detail to both patient and her .? I have discussed the risks of surgery as well as the postoperative risk of line infection and given them strategies to mitigate this risk.? They expressed understanding appreciation for this information. I have re-examined the patient. There are no clinical changes since date of exam. She confirms that she is not due to start chemotherapy until next week so we will not leave the port accessed following placement today. Otherwise we will proceed for placement of Port-A-Cath under local MAC as detailed above.
[2022-03-15] MEDS: Cefazolin 2 GM in 0.9% Normal Saline 100 ML IV (11:43)
[2022-03-15] MEDS: Bupivacaine 0.25% 30 ML Vial (12:10)
--- NOTE | 2022-03-15 12:48 | PCM.OPRPT ---
Report of Operation Date of Procedure: 03/15/22 Pre-Operative Diagnosis: Metastatic lymphoma requiring durable vascular access for initiation of chemotherapy Post-Operative Diagnosis: Same Surgery/Procedure Performed:: Placement of ultrasound-guided right internal jugular PowerPort (8 [place]) Description of Surgical Findings:: ? Normal vascular anatomy with widely patent right internal jugular vein Surgeon: Kane Byers coding validator: None Type of Anesthesia: MAC/Supplemental Anesthesiologist: Corby Gunderson Estimated Blood Loss (mL): 10 Description of Procedure: After appropriate identification in the preoperative holding area the patient was brought to the operating room. There she was administered preoperative antibiotics and positioned supine on the operating room table. Once sedation was begun, the upper chest and lower cervical region were prepped and draped in usual sterile fashion. A formal timeout was then conducted to confirm both the patient and procedure. Ultrasound was used to localize the right internal jugular vein. Then a wheal of 0.25% bupivacaine was raised superficially in this location and the vein was accessed under direct ultrasound guidance using a Seldinger technique and micro access kit to place a guidewire. The position of the guidewire was confirmed with fluoroscopy. The micro access guidewire was exchanged for standard 035 guidewire using provided sheath. Next the position of the port pocket was determined and again local anesthetic was used to anesthetize the area of both the pocket and the tunneling cephalad. A transverse incision 3 cm in width was made down through the subcutaneous tissue. Selective electrocautery was used to obtain hemostasis. Then with blunt dissection the port pocket was developed. The catheter was connected to the tunneler and was tunneled up to the position of the guidewire. Here the dilator and peel-away sheath were placed over the guidewire under fluoroscopic visualization and the guidewire was removed. The catheter length was estimated based on the external placement of a hemostat to approximate the level of the cristina and the cavoatrial junction. The catheter was then fed into the sheath and slowly the sheath was peeled away as the catheter was inserted fully into the neck. Back in the chest the excess catheter was trimmed and the port was connected to the catheter. The port was tied into the pocket using 2-0 Prolene. Function was then tested using sterile saline on a Davis needle. It was locked with 2.5 mL of heparinized saline (concentration 50U/5mL). The port pocket was closed with a deep dermal stitch using a running 3-0 Vicryl followed by 4-0 Monocryl subcuticular stitch. The 1 cm incision in the neck was closed with a single interrupted subcuticular stitch using 4-0 Monocryl. Dermabond was applied as a dressing. Patient was then aroused from the sedation and taken to PACU for ongoing recovery were a portable chest x-ray was obtained to confirm port positioning and exclude any pneumothorax. Grafts/Implants Used: - Placement of 8 [place] Island[place] PowerPort ISP MRI implantable port Reference #[id number] Complications None Admit VTE Documentation VTE Present on Admission: Yes VTE Mechan Device Prophylaxis: SCD's Procedures Cardiovascular CF Procedures [id number]: [id number] Insert tunneled cv cath
--- NOTE | 2022-03-15 12:51 | DCINST_ITS ---
Discharge Instructions Diet Discharge Diet: No restrictions Activity Discharge Activity: May Shower May shower in (days): 1 Ice area for (Minutes): 20 Additional Activity Instructions:: Limit the activity by the nearest upper extremity for 48 hours postop Dressing / Incision Call your doctor if your incision/area has: Increased Pain/ Swelling, Increased Redness, Foul Smelling Discharge and Swelling at the incision site Call your doctor if you observe: Fever of 101 or Higher Remove Dressing in: do not remove dressing (Dermabond (surgical glue) expected to dissolve spontaneously within 7 to 10 days postop using regular showering) Cleanse incision/area with: Soap & Water Follow Up Care Test Results: Test results from this visit will be discussed in further detail at your follow- up appointment, if applicable. Discharge Plan Admission Primary Reason for Your Visit: Placement of Port-A-Cath for chemotherapy Attending Provider: Kane Byers [facility] Providers: Dana Ramos Instructions Patient Instructions: Central Line Central Venous ... Discharge Orders/Prescriptions Prescriptions: No Action Breztri Aerosphere 160-9-4.8 mcg/actuation HFA aerosol inhaler 2 inh inhalation BID gabapentin 300 mg capsule 300 mg PO TID PRN (Reason: NERVE PAIN) losartan 100 mg tablet 100 mg PO DAILY Label Comments: PT STOPPED TAKING ON 02/15/22 DUE TO BP BEING LOW. clopidogrel 75 mg tablet 75 mg PO DAILY Label Comments: PT STOPPED TAKING DUE TO UPCOMING PROCEDURES. dexamethasone [Decadron] 4 mg tablet 4 mg PO DAILY Qty: 30 0RF allopurinol 300 mg tablet 300 mg PO DAILY Qty: 30 1RF lidocaine-prilocaine 2.5-2.5 % cream 1 applic topical ONCE PRN (Reason: port access) 30 Days Qty: 30 2RF ondansetron 8 mg tablet,disintegrating 8 mg PO Q8H PRN (Reason: nausea and vomiting) Qty: 30 2RF prochlorperazine maleate 10 mg tablet 10 mg PO Q6H PRN (Reason: nausea and vomiting) Qty: 30 2RF prednisone 20 mg tablet 100 mg PO .COMPLEX Qty: 25 5RF Rx Instructions: 100 mg orally Daily on days 1-5 of chemotherapy cycle only; pantoprazole [Protonix] 40 mg tablet,delayed release (DR/EC) 40 mg PO BID Qty: 60 0RF sucralfate [Carafate] 1 gram tablet 1 g PO .QID Qty: 120 0RF levothyroxine [Euthyrox] 25 mcg tablet 25 mcg PO DAILY albuterol sulfate 90 mcg/actuation HFA aerosol inhaler 2 puff INHALATION PRN PRN (Reason: SOB) Label Comments: INHALE 2 PUFFS BY MOUTH EVERY 4 TO 6 HOURS Trelegy Ellipta 100-62.5-25 mcg Blister With Device 1 inh INHALATION DAILY Label Comments: START ONCE OTHER INHALER FINISHED [facility] Follow [facility]: [facility]Primary Care Provider[facility] - Disposition Disposition (needs filled in before D/C Order can be placed): Home, Self Care
--- NOTE | 2022-03-15 13:05 | RAD_ITS ---
STUDY: X-RAY CHEST REASON FOR EXAM: Female, 66 years old. Status post line placement TECHNIQUE: Single AP portable view of the chest. COMPARISON: Comparison is made with prior study 01/15/2022. FINDINGS: A right-sided gabriel catheter has been placed. The tip is at the junction of the superior vena cava and right atrium. EKG electrodes are seen. The lungs are clear and expanded. There is no demonstrated pleural abnormality. Normal size heart. Normal mediastinum and sushma. Normal visualized pulmonary arteries. Normal visualized aortic arch and descending thoracic aorta. Normal visualized thoracic spine. Normal visualized ribs, clavicles, and shoulders. There is no demonstrated abnormality of the visualized soft tissue structures of the upper abdomen. RAD/CXR for Line Placement IMPRESSION: The tip of the right-sided gabriel catheter is at the junction of the superior vena cava and right atrium. Electronically Signed: Rios Caraballo MD at 13:31 EDT ,
== END 2022-03-15 14:46 | disposition home or self-care (01) ==
LOC: SDC 10:46 → AC 10:47
PROVIDERS: Visit Provider Surgery
PROC: (CPT 36561; principal; 2022-03-15 12:05)
DX: Z45.2 Encounter for adjustment and management of vascular access device (principal); C85.90 Non-Hodgkin lymphoma, unspecified, unspecified site; I65.29 Occlusion and stenosis of unspecified carotid artery; I10 Essential (primary) hypertension; Z79.899 Other long term (current) drug therapy; Z79.02 Long term (current) use of antithrombotics/antiplatelets; F17.210 Nicotine dependence, cigarettes, uncomplicated; M79.89 Other specified soft tissue disorders; M19.90 Unspecified osteoarthritis, unspecified site; D64.9 Anemia, unspecified; J45.909 Unspecified asthma, uncomplicated; K21.9 Gastro-esophageal reflux disease without esophagitis; E78.00 Pure hypercholesterolemia, unspecified; Z87.19 Personal history of other diseases of the digestive system; R06.02 Shortness of breath; E07.9 Disorder of thyroid, unspecified
CPT/HCPCS: 36561; 00532; 71045; 77001; J7120; C1788

== ENCOUNTER → 2022-03-27 | Outpatient (CLI) | payer MEDICARE, SELFPAY ==
--- NOTE | 2022-03-27 07:22 | MRI_ITS ---
STUDY: MRI BRAIN WITH AND WITHOUT CONTRAST REASON FOR EXAM: Female, 66 years old. STAGING FOR NHL TECHNIQUE: Standardized multiplanar fat and water weighted pulse sequences were obtained. IV 13ml Dotarem was administered for the contrast portion of the examination. COMPARISON: None. FINDINGS: No evidence of intracranial mass or mass effect, no evidence of midline shift is seen. No evidence of enhancing masses visualized. No areas of abnormal enhancement visualized. The dural surfaces demonstrate a smooth contour with unremarkable enhancement. No evidence of restricted diffusion, the ADC map is unremarkable. No areas of signal dropout visualized on the gradient echo sequence. Mild prominence of the ventricles and extra-axial spaces for the patient''s age. Scattered areas of T2 prolongation are visualized in the periventricular and subcortical white matter suggestive of mild chronic microvascular disease unremarkable for the patient''s age. No evidence of parenchymal hemorrhages or contusions. No evidence of intra or extra-axial fluid collection is seen. Normal bilateral basal ganglia. Normal thalami. There is no extra-axial fluid accumulation. Normal flow voids within the major intracranial circulation suggesting patency by spin echo criteria. Normal venous enhancement. Normal sella turcica, pituitary gland, infundibular stalk, optic chiasm and hypothalamus. Normal tectal plate and pineal gland. Normal midbrain, berta and medulla. Normal cerebellum. Normal basal cisterns. Normal bilateral temporal bones. Normal bilateral internal auditory canals. No demonstrated orbital abnormality, within the constraints of a routine brain study. Mild circumferential mucoperiosteal disease visualized in the paranasal sinuses. Normal calvarium and skull base. Normal visualized soft tissue structures. Normal visualized upper cervical spine. MRI/Brain W/WO Contrast IMPRESSION: No evidence of intracranial masses is seen. No evidence of acute intracranial pathology is seen. Electronically Signed: Shiva Patino MD at 9:02 EDT ,
[2022-03-27] MEDS: 0.9% Saline Lock 10 ML Syringe IV (08:00)
== END | disposition home or self-care (01) ==
PROVIDERS: Referring Provider Internal Medicine Medical Oncology; Visit Provider Internal Medicine Medical Oncology
DX: C85.90 Non-Hodgkin lymphoma, unspecified, unspecified site (principal)
CPT/HCPCS: 70553; A9575

== ENCOUNTER → 2022-06-11 | Outpatient (CLI) | payer MEDICARE, SELFPAY ==
--- NOTE | 2022-06-11 12:03 | RAD_ITS ---
EXAM: XR CHEST, 2 VIEWS CLINICAL INDICATION: COUGH TECHNIQUE: Frontal and lateral views of the chest. This report was created using [employer] report generation technology. COMPARISON: 01/15/2022 FINDINGS: LUNGS AND PLEURAL SPACES: Unremarkable. No consolidation or edema. No pneumothorax. No effusion. HEART: Unremarkable. Cardiac silhouette not enlarged. MEDIASTINUM: Central airways and mediastinal contour are unremarkable. BONES/JOINTS: Unremarkable. SOFT TISSUES: Unremarkable. TUBES, LINES AND DEVICES: Right chest port. RAD/Chest PA and Lateral IMPRESSION: No acute findings in the chest. Electronically Signed: Leonard Abreu MD at 0:41 EDT ,
== END | disposition home or self-care (01) ==
LOC: RAD 11:55
PROVIDERS: Referring Provider Internal Medicine Medical Oncology; Visit Provider Internal Medicine Medical Oncology
DX: R05.9 Cough, unspecified (principal); C83.36 Diffuse large B-cell lymphoma, intrapelvic lymph nodes
CPT/HCPCS: 71046

== ENCOUNTER 2022-06-17 11:48 | Emergency (ER) | payer MEDICARE, SELFPAY ==
[2022-06-17 11:49] VITALS: BP 141/63; PULSE 76; RESP 14; TEMP 36.4; O2SAT 99; BMI 25.4
--- NOTE | 2022-06-17 12:13 | EDS_ITS ---
HPI History of Present Illness Chief Complaint: GI Bleed Narrative Narrative: 66-year-old female here for concern for GI bleed history of lymphoma chemotherapy gastric mass. The patient states she has a history of gastric bleeding. States her stools been dark for the last several days states has been diffusely weak and feeling cold. States last chemotherapy was 1 week ago. Denies any kathrine abdominal pain, chest pain, shortness of breath, nausea vomiting, increased urination. She is not on a anticoagulant at this time. Old chart reviewed: History of cancer, gastric lymphoma admitted for GI bleed [facility] Medical History Abdominal pain Abnormal weight loss Anemia Anxiety Arthritis Asthma Back pain Blackout Cancer Chronic cough CINV (chemotherapy-induced nausea and vomiting) Constipation Depression Diffuse large b-cell lymphoma, intrapelvic lymph nodes Dizziness DLBCL (diffuse large B cell lymphoma) Encounter for chemotherapy management Encounter for education Essential (primary) hypertension Excessive bleeding Gastric reflux High cholesterol History of echocardiogram History of edema History of GI bleed History of retained foreign body fully removed History of steroid therapy Hypertension Injury of head and neck Leg cramps Lower abdominal pain, unspecified Mucositis (ulcerative) due to antineoplastic therapy Post-menopausal Shortness of breath on exertion Smoker Smoker Thyroid disease Tooth pain Wears glasses Home Medications gabapentin 300 mg capsule 300 mg PO TID PRN NERVE PAIN 01/28/22 [History Last Taken 02/19/22] losartan 100 mg tablet 100 mg PO DAILY blood pressure 01/28/22 [History Last Taken 02/15/22] clopidogrel 75 mg tablet 75 mg PO DAILY anti platelet 02/08/22 [History Last Taken 03/07/22] albuterol sulfate 90 mcg/actuation aerosol inhaler 2 puff inhalation PRN PRN SOB 03/11/22 [History Last Taken Unknown] fluticasone fur. 100 mcg-umeclid 62.5 mcg-vilant 25 mcg inhalat.powder (Trelegy Ellipta) 1 inh inhalation DAILY 03/11/22 [History Last Taken Unknown] levothyroxine 25 mcg tablet (Euthyrox) 25 mcg PO DAILY 03/11/22 [History Last Taken Unknown] lidocaine-prilocaine 2.5 %-2.5 % topical cream 1 applic topical ONCE PRN port access 30 days #30 grams 03/13/22 [Rx Last Taken Unknown] ondansetron 8 mg disintegrating tablet 8 mg PO Q8H PRN nausea and vomiting #30 tabs 03/13/22 [Rx Last Taken Unknown] prednisone 20 mg tablet 100 mg PO .COMPLEX #25 tabs 03/13/22 [Rx Last Taken Unknown] prochlorperazine maleate 10 mg tablet 10 mg PO Q6H PRN nausea and vomiting #30 tabs 03/13/22 [Rx Last Taken Unknown] docusate sodium 100 mg capsule (Colace) 100 mg PO DAILY 04/22/22 [History Last Taken Unknown] hydrocodone-acetaminophen 5-325mg 5mg-325mg 1 tab PO Q8H PRN 04/22/22 [History Last Taken Unknown] pantoprazole 40 mg tablet,delayed release (Protonix) 40 mg PO BID #60 tabs 05/28/22 [Rx Last Taken Unknown] MAGIC MOUTH WASH (BMX) 180 mL suspension 5 ml PO Q4H PRN mouth pain #180 mL 06/03/22 [Rx Last Taken Unknown] Allergy/AdvReac Type Severity Reaction Status Date / Time No Known Allergies Allergy Verified 06/17/22 11:52 Family History Grandmother Breast cancer Hypertension Sister Cancer CERVICAL Sister Cancer UTERUS Brother Cancer ESOPHAGEAL Brother Cancer PROSTATE Mother Hypertension Diabetes Surgical History History of esophagogastroduodenoscopy (EGD) S/P cataract extraction Social History Smoking Status: Current every day smoker tobacco type: cigarettes substance use type: does not use ROS ROS ED ROS Narrative Constitutional: Denies fever HEENT: Denies sore throat Neck: Denies neck pain Cardiovascular: Denies chest pain, syncope Respiratory: Denies shortness of breath GI: Denies nausea vomiting or abdominal pain. Positive for melena : Denies changes in urinary habits Musculoskeletal: Denies muscle or joint pain Neurologic: Denies numbness weakness or loss of sensation Skin denies rash EXAM Physical Exam Narrative Exam Narrative: Nursing triage notes reviewed, Vital signs reviewed Constitutional: please see mdm HENT: MMM Eyes: Pupils equal round and reactive to light, Extraocular muscles intact Neck: No stridor, no JVD, full neck ROM Lungs: Clear to auscultation, No wheezing or rales. No increased work of breathing, no conversational dyspnea, no accessory muscle use, no nasal flaring. No respiratory distress noted Heart: Regular rate and rhythm, No murmurs, No rubs and No gallops, 2+ distal pulses (radial, femoral, posterior tibial) in all extremities Abdomen: Soft, there is no tenderness, rigidity, rebound or guarding, no obvious peritoneal signs, no palpable pulsatile abdominal masses, no auscultated abdominal bruit : No CVAT Rectal: No obvious melena, no obvious hematochezia no obvious hemorrhoid Extremities: No edema Neuro: No focal neurological deficits, cranial nerves II through XII intact, 5/5 strength in all extremities. Intact sensation to light touch in all extremities, 2+ reflexes bilateral patella dens. Normal gait. No ataxia. Skin: No rash or lesions noted Const Vital Signs: 06/17/22 11:49 06/17/22 13:54 Temperature 97.5 F L Temperature Source Temporal Pulse Rate 76 83 Respiratory Rate 14 22 H Blood Pressure 141/63 H 103/66 Blood Pressure Mean 89 78 Pulse Ox 99 97 Oxygen Delivery Method Room Air Room Air MDM MDM MDM Narrative Medical decision making narrative: 66-year-old female here with concern for GI bleed after noticing melena over the past few days has been feeling diffusely weak. No chest pain endorsed. Exam without focal cardiopulmonary abnormalities. Rectal exam without obvious melena or hematochezia. EKG without arrhythmia or STEMI obtained a broad lab and imaging work-up to further elucidate etiology of the patient complaints. Labs without significant anemia, Hemoccult negative. Unclear discoloration of stool based on the patient's work-up this is not a GI bleed. Patient was found to be significantly neutropenic. No fever no infectious symptoms no pneumonia or UTI no physical exam findings of rash or significant belly pain to suggest intra- abdominal pathology. I believe the patient is appropriate for discharge home with close oncology, PCP and GI follow-up. I had a shared decision-making discussion with the patient and family. Offered further testing, labs, hospitalization for ongoing evaluation. Lab Data Attestation: I reviewed the patient's lab results. Lab results narrative: CBC with severe leukopenia, stable anemia, noted thrombocytopenia which is forest lar to baseline Coagulation factors within normal limits suggestive of intact liver synthetic function BMP without evidence of significant electrolyte abnormalities, no anion gap, no acute kidney injury. UA without evidence of inflammation suggestive of UTI Labs: Laboratory Results - last 24 hr 06/17/22 06/17/22 06/17/22 12:05 12:05 12:05 WBC 0.6 L* RBC 2.70 L Hgb 8.6 L Hct 24.9 L MCV 92.2 MCH 31.9 MCHC 34.5 RDW Std Deviation 59.0 H RDW Coeff of Real 17.6 H Plt Count 63 L MPV 10.8 Immature Gran % (Auto) 0.000 Neut % (Auto) 31.7 L Lymph % (Auto) 55.0 H [place] % (Auto) 10.0 Eos % (Auto) 3.3 Baso % (Auto) 0.0 Absolute Neuts (auto) 0.2 L Absolute Lymphs (auto) 0.33 L Nucleated RBC % 0 Differential Comment SCANNED Diff Path Review May foll Reactive Lymphocytes 1+ Platelet Estimate MOD DEC PT 14.0 INR 1.1 APTT 33.5 Sodium 131 L Potassium 3.7 Chloride 98 Carbon Dioxide 26.0 Anion Gap 7 BUN 17 Creatinine 0.82 Estim Creat Clear Calc 49.13 Est GFR (MDRD) Af Amer 89 Est GFR (MDRD) Non-Af 74 BUN/Creatinine Ratio 20.6 H Glucose 114 H Calcium 9.4 Total Bilirubin 0.80 AST 10 L ALT 14 Alkaline Phosphatase 98 Total Protein 6.7 Albumin 3.3 Globulin 3.4 Albumin/Globulin Ratio 1.0 Urine Color Urine Clarity Urine pH Ur Specific [place] Urine Protein Urine Glucose (UA) Urine Ketones Urine Occult Blood Urine Nitrite Urine Bilirubin Urine Urobilinogen Ur Leukocyte Esterase Blood Type Antibody Screen 06/17/22 06/17/22 06/17/22 12:05 13:03 13:25 WBC RBC Hgb Hct MCV MCH MCHC RDW Std Deviation RDW Coeff of Real Plt Count MPV Immature Gran % (Auto) Neut % (Auto) Lymph % (Auto) [place] % (Auto) Eos % (Auto) Baso % (Auto) Absolute Neuts (auto) Absolute Lymphs (auto) Nucleated RBC % Differential Comment Diff Path Review Reactive Lymphocytes Platelet Estimate PT INR APTT Sodium Potassium Chloride Carbon Dioxide Anion Gap BUN Creatinine Estim Creat Clear Calc Est GFR (MDRD) Af Amer Est GFR (MDRD) Non-Af BUN/Creatinine Ratio Glucose Calcium Total Bilirubin AST ALT Alkaline Phosphatase Total Protein Albumin Globulin Albumin/Globulin Ratio Urine Color Straw Urine Clarity Clear Urine pH 7.0 Ur Specific [place] 1.005 Urine Protein Negative Urine Glucose (UA) Normal Urine Ketones Negative Urine Occult Blood Negative Urine Nitrite Negative Urine Bilirubin Negative Urine Urobilinogen Normal Ur Leukocyte Esterase Negative Blood Type Cancelled O NEGATIVE Antibody Screen Cancelled NEGATIVE Radiography Diagnostic Testing: Clinical Impression(s) from Imaging Studies Chest X-Ray 06/17/22 13:30 IMPRESSION: The lungs are clear. Electronically Signed: Rios Caraballo MD at 13:48 EDT , EKG Initial EKG: Comments: EKG with normal sinus rhythm, normal axis, no STEMI Discharge Plan Triage Chief Complaint: GI Bleed ED Provider: Kingston Garland Dx/Rx/DC Orders Clinical Impression: Neutropenia, Dark stools Instructions: Neutropenia Prescriptions: No Action gabapentin 300 mg capsule 300 mg PO TID PRN (Reason: NERVE PAIN) losartan 100 mg tablet 100 mg PO DAILY Label Comments: PT STOPPED TAKING ON 02/15/22 DUE TO BP BEING LOW. clopidogrel 75 mg tablet 75 mg PO DAILY Label Comments: PT STOPPED TAKING DUE TO UPCOMING PROCEDURES. lidocaine-prilocaine 2.5-2.5 % cream 1 applic topical ONCE PRN (Reason: port access) 30 Days Qty: 30 2RF ondansetron 8 mg tablet,disintegrating 8 mg PO Q8H PRN (Reason: nausea and vomiting) Qty: 30 2RF prochlorperazine maleate 10 mg tablet 10 mg PO Q6H PRN (Reason: nausea and vomiting) Qty: 30 2RF prednisone 20 mg tablet 100 mg PO .COMPLEX Qty: 25 5RF Rx Instructions: 100 mg orally Daily on days 1-5 of chemotherapy cycle only; docusate sodium [Colace] 100 mg capsule 100 mg PO DAILY hydrocodone-acetaminophen 5-325 mg tablet 1 tab PO Q8H PRN MAGIC MOUTH WASH (BMX) 180 mL suspension 5 ml PO Q4H PRN (Reason: mouth pain) Qty: 180 1RF levothyroxine [Euthyrox] 25 mcg tablet 25 mcg PO DAILY albuterol sulfate 90 mcg/actuation HFA aerosol inhaler 2 puff INHALATION PRN PRN (Reason: SOB) Label Comments: INHALE 2 PUFFS BY MOUTH EVERY 4 TO 6 HOURS Trelegy Ellipta 100-62.5-25 mcg Blister With Device 1 inh INHALATION DAILY Label Comments: START ONCE OTHER INHALER FINISHED pantoprazole [Protonix] 40 mg tablet,delayed release (DR/EC) 40 mg PO BID Qty: 60 0RF Primary Care Provider: [facility] Patti Bernstein Referrals: [facility],Patti Burnette [Primary Care Provider] - Disposition Disposition: Home, Self Care
--- NOTE | 2022-06-17 12:42 | EKG12_ITS ---
Test Reason : GI BLEED Blood Pressure : / mmHG Vent. Rate : 079 BPM Atrial Rate : 079 BPM P-R Int : 142 ms QRS Dur : 098 ms QT Int : 392 ms P-R-T Axes : 054 044 065 degrees QTc Int : 449 ms Normal sinus rhythm Incomplete right bundle branch block Borderline ECG When compared with ECG of 20-FEB-2022 01:01, Incomplete right bundle branch block is now Present Confirmed by SHERRIE TRINH, NOHEMY ([id number]), editorial assistant MCKENZIE HAND ([id number]) on 06/21/2022 2:42:43 P M Referred By: Confirmed By:OZIEL BALDERAS MD
[2022-06-17 13:04] LABS: International Normalized Ratio 1.1; Partial Thromboplast Time 33.5 Seconds (24.1-36.2)
[2022-06-17 13:05] LABS: Absolute Lymphocyte Count 0.33 X10^3/uL (0.83-4.51); Absolute Neutrophil Count 0.2 X10^3/uL (2.0-7.7); Eosinophil# 0.02 X10^3/uL; Eosinophils% 3.3 % (0-5); Hematocrit 24.9 % (37-47); Hemoglobin 8.6 g/dL (12.0-15.0); Lymphocyte # 0.33 X10^3/ul (0.83-4.51); Mean Corp Hgb Conc 34.5 g/dL (32-36); Mean Corpuscular Hgb 31.9 pg (27.0-32.0); Mean Corpuscular Volume 92.2 fL (81-99); Mean Platelet Vol. 10.8 fl (6.2-12.0); Monocyte# 0.06 X10^3/uL; NRBC Flagged by Analyzer 0 % (0-5); Neutrophil # 0.19 X10^3/uL (2.7-7.7); Neutrophil % 31.7 % (47-70); POSITIVE COUNT YES; POSITIVE DIFFERENTIAL YES; POSITIVE MORPHOLOGY YES; Platelet Count 63 K/mm3 (150-450); RBC Distribution Width CV 17.6 % (11.6-14.6)
[2022-06-17 13:09] LABS: Differential Indicated SCAN CRITERIA MET; White Blood Count 0.6 K/mm3 (4.4-11.0)
--- NOTE | 2022-06-17 13:15 | ED.RN ---
DR CAPELLAN NOTIFIED WBC=0.6, HGB=8.6 AND PLT=63. NEW ORDERS PLACED
[2022-06-17 13:25] LABS: AST(SGOT) 10 U/L (15-37); Alanine Aminotransfer ALT/SGPT 14 U/L (13-56); Albumin, Serum 3.3 g/dL (3.2-5.0); Alkaline Phosphatase 98 U/L (45-117); Anion Gap 7 (5-15); BUN 17 mg/dL (7-18); BUN/Creat Ratio 20.6 RATIO (10-20); Calcium,Total 9.4 mg/dL (8.5-10.1); Chloride 98 mmol/L (98-107); Creatinine, Serum 0.82 mg/dL (0.55-1.02); EST Glomerular Filtration Rate 74 mL/min (>60); Est Glom Filt Rate - Afr Amer 89 mL/min (>60); Estimated Creatinine Clearance 49.13 ml/min; Globulin 3.4 g/dL (2.2-4.2); Glucose 114 mg/dL (74-106); Potassium 3.7 mmol/L (3.5-5.1); Protein, Total 6.7 g/dL (6.4-8.2); Sodium Level 131 mmol/L (136-145)
--- NOTE | 2022-06-17 13:30 | RAD_ITS ---
STUDY: X-RAY CHEST REASON FOR EXAM: Female, 66 years old. Neutropenia. TECHNIQUE: PA and lateral views of the chest. COMPARISON: Comparison is made with prior study dated 06/11/2022. FINDINGS: A right-sided gabriel catheter seen with the tip at the junction of the superior vena cava and right atrium. EKG electrodes are seen. The lungs are clear and expanded. There is no demonstrated pleural abnormality. Normal size heart. Normal mediastinum and sushma. Normal visualized pulmonary arteries. Normal visualized aortic arch and descending thoracic aorta. There are degenerative changes of the visualized thoracic spine. Normal visualized ribs, clavicles, and shoulders. There is no demonstrated abnormality of the visualized soft tissue structures of the upper abdomen. RAD/Chest PA and Lateral IMPRESSION: The lungs are clear. Electronically Signed: Rios Caraballo MD at 13:48 EDT ,
[2022-06-17 13:34] LABS: Differential Comment SCANNED
[2022-06-17 13:35] LABS: Platelet Estimate MOD DEC (ADEQ); Reactive Lymphocyte 1+
[2022-06-17 13:35] LABS: Color, Urine Straw (Yellow); Glucose, Dipstick Normal (Normal); Ketone-Dipstick Negative (Negative); Leukocyte Esterase-Dipstick Negative /ul (Negative); Nitrite-Dipstick Negative (Negative); Occult Blood-Urine Negative /ul (Negative); Protein-Dipstick Negative (Negative); Specific Gravity, Urine 1.005 (1.002-1.030); Urine Bilirubin Dipstick Negative (Negative); Urine Clarity Clear (Clear); Urine Urobilinogen Normal (Normal)
[2022-06-17 13:54] VITALS: BP 103/66; PULSE 83; RESP 22; O2SAT 97
[2022-06-17 15:00] VITALS: BP 138/77; PULSE 92; RESP 20; O2SAT 97
[2022-06-18 15:13] LABS: Pathologist Review Reviewed
== END 2022-06-17 15:08 | disposition home or self-care (01) ==
PROVIDERS: Emergency Provider Emergency Medicine; Visit Provider Emergency Medicine
DX: D70.9 Neutropenia, unspecified (principal); K92.2 Gastrointestinal hemorrhage, unspecified; F17.210 Nicotine dependence, cigarettes, uncomplicated
CPT/HCPCS: 71046; 80053; 81002; 82274; 85025; 85610; 85730; 86850; 86900; 86901; 93005; 99283; A4216

== ENCOUNTER → 2022-06-24 | Outpatient (CLI) | payer MEDICARE, SELFPAY ==
--- NOTE | 2022-06-24 12:38 | ECHOLONC_ITS ---
Reason For Study: Chemo Meds Procedure This was a limited 2D transthoracic echocardiogram. Myocardial strain analysis was performed in this exam to aid in the assessment of cardiac function. Exam performed in department. Left Ventricle Normal LV size. Left ventricular systolic function is normal. The estimated ejection fraction is 55 %. Stage 1 diastolic dysfunction. No regional wall motion abnormalities noted. Right Ventricle Normal RV size. Normal systolic function. Atria Normal left atrium. Normal right atrium. Mitral Valve Normal mitral valve. Tricuspid Valve Normal tricuspid valve. Mild tricuspid valve insufficiency. Pulmonary artery systolic pressure is 30 mmHg. Aortic Valve Normal aortic valve. Trisinus/trileaflet aortic valve. Pulmonic Valve Normal pulmonic valve. Great Vessels Normal aortic root. The pulmonary artery is normal size. Normal inferior vena cava. Pericardium/Pleural No pericardial effusion. MMode/2D Measurements & Calculations LVIDd: 3.8 cm IVSd: 0.89 cm LA dimension: 3.0 cm LVIDs: 2.7 cm LVPWd: 1.00 cm FS: 30.3 % LAV(MOD-bp): 29.2 ml LA A4 area: 11.3 cm2 RA A4 area: 9.3 cm2 LAV(MOD-bp) Indexed: 19.0 ml/m2 LAV(MOD-sp2): 31.3 ml LAV(MOD-sp4): 21.3 ml Time Measurements MV dec time: 0.20 sec Doppler Measurements & Calculations MV E max amaury: 61.0 cm/sec Lat Peak E' Amaury: 8.9 cm/sec Med Peak E' Amaury: 10.2 cm/sec MV A max amaury: 96.8 cm/sec E/E' lat: 6.8 E/E' med: 6.0 MV E/A: 0.63 TR max amaury: 252.1 cm/sec TR max P.4 mmHg ECHO/ONC Echo, Limited Study Interpretation Summary Normal LV size. Left ventricular systolic function is normal. The estimated ejection fraction is 55 %. Stage 1 diastolic dysfunction. Pulmonary artery systolic pressure is 30 mmHg. The global longitudinal strain is normal. The global longitudinal strain = -19. 6 % (normal). Ordering Physician: Golden Valles Referring Physician: Golden Valles Performed By: Saud Weathers RCS
== END | disposition home or self-care (01) ==
LOC: CVS 12:35
PROVIDERS: Referring Provider Internal Medicine Medical Oncology; Visit Provider Internal Medicine Medical Oncology
DX: Z51.11 Encounter for antineoplastic chemotherapy (principal); Z51.81 Encounter for therapeutic drug level monitoring; Z79.899 Other long term (current) drug therapy
CPT/HCPCS: 93308; 93356

== ENCOUNTER 2022-08-08 10:56 | Inpatient (IN) | payer MEDICARE, SELFPAY ==
[2022-08-08] VITALS (46 sets, daily range): BP systolic 61–157; BP diastolic 34–95; PULSE 93–152; RESP 15–27; TEMP 36.7–39.1; O2SAT 82–100; BMI 24.5; BMI 23.9
--- NOTE | 2022-08-08 11:07 | EKG12_ITS ---
Test Reason : SYNCOPE Blood Pressure : / mmHG Vent. Rate : 134 BPM Atrial Rate : 134 BPM P-R Int : 134 ms QRS Dur : 092 ms QT Int : 298 ms P-R-T Axes : 059 -07 062 degrees QTc Int : 445 ms Sinus tachycardia Low voltage QRS Incomplete right bundle branch block Borderline ECG Confirmed by LYNNE TRINH, TEOFILO ([id number]), image editor MCKENZIE HAND ([id number]) on 08/09/2022 10:58:42 AM Referred By: MICA Confirmed By:TEOFILO BATISTA MD
--- NOTE | 2022-08-08 11:11 | EX.ED.DYSGE1 ---
HPI History of Present Illness Chief Complaint: Syncope Informant: patient and EMS Narrative Narrative: Brought in by EMS for syncopal episode. Getting out of bed prodromal lightheaded symptoms. No chest pains or shortness of breath. Patient reported overnight 1 emesis. No current nausea. No diarrhea. She has black stools due to being on iron. She had GI bleed in January with blood transfusion. Reports unable to find the source at that time. Denies bright red blood. Denies abdominal pain. History of non-Hodgkin's lymphoma metastasis followed by Dr. Justin. She finished 6 rounds of chemo treatment 5 weeks ago. She states overnight chills felt feverish. Denies sick contacts. Nonvaccinated for COVID or influenza. Denies cough or urinary symptoms. Temp of 99 per EMS. Prior similar symptoms: No PFSH PFSH Medical History Abdominal pain Abnormal weight loss Anemia Anxiety Arthritis Asthma Back pain Blackout Cancer Carotid artery stenosis Chronic cough CINV (chemotherapy-induced nausea and vomiting) Constipation Depression Diffuse large b-cell lymphoma, intrapelvic lymph nodes Dizziness DLBCL (diffuse large B cell lymphoma) Encounter for chemotherapy management Encounter for education Essential (primary) hypertension Excessive bleeding Gastric reflux GERD (gastroesophageal reflux disease) High cholesterol History of echocardiogram History of edema History of GI bleed History of retained foreign body fully removed History of steroid therapy Hypertension Hypothyroidism Injury of head and neck Leg cramps Lower abdominal pain, unspecified Mucositis (ulcerative) due to antineoplastic therapy Post-menopausal Severe protein-calorie malnutrition Shortness of breath on exertion Smoker Smoker Thyroid disease Tooth pain Wears glasses Home Medications losartan 100 mg tablet 100 mg PO DAILY blood pressure 01/28/22 [History Last Taken 08/07/22] clopidogrel 75 mg tablet 75 mg PO DAILY anti platelet 02/08/22 [History Last Taken 08/07/22] fluticasone fur. 100 mcg-umeclid 62.5 mcg-vilant 25 mcg inhalat.powder (Trelegy Ellipta) 1 inh inhalation DAILY 03/11/22 [History Last Taken 08/06/22] levothyroxine 25 mcg tablet (Euthyrox) 25 mcg PO DAILY 03/11/22 [History Last Taken 08/07/22] lidocaine-prilocaine 2.5 %-2.5 % topical cream 1 applic topical ONCE PRN port access 30 days #30 grams 03/13/22 [Rx Last Taken Unknown] ondansetron 8 mg disintegrating tablet 8 mg PO Q8H PRN nausea and vomiting #30 tabs 03/13/22 [Rx Last Taken Unknown] docusate sodium 100 mg capsule (Colace) 100 mg PO DAILY 04/22/22 [History Last Taken Unknown] pantoprazole 40 mg tablet,delayed release (Protonix) 40 mg PO BID #60 tabs 05/28/22 [Rx Last Taken 08/07/22] MAGIC MOUTH WASH (BMX) 180 mL suspension 5 ml PO Q4H PRN mouth pain #180 mL 06/03/22 [Rx Last Taken Unknown] dexamethasone 4 mg tablet 4 mg PO DAILY #30 tabs 07/15/22 [Rx Last Taken 08/07/22] ferrous sulfate 325 mg (65 mg iron) tablet 325 mg PO BID 07/29/22 [History Last Taken 08/07/22] potassium chloride 20 mEq tablet,extended release 20 meq PO DAILY #14 tabs 07/29/22 [Rx Last Taken 08/07/22] Allergy/AdvReac Type Severity Reaction Status Date / Time No Known Allergies Allergy Verified 08/08/22 11:03 Family History Grandmother Breast cancer Hypertension Sister Cancer CERVICAL Sister Cancer UTERUS Brother Cancer ESOPHAGEAL Brother Cancer PROSTATE Mother Hypertension Diabetes Surgical History History of esophagogastroduodenoscopy (EGD) S/P cataract extraction Social History Smoking Status: Current every day smoker tobacco type: cigarettes substance use type: does not use ROS ROS ED Constitutional Constitutional ED: Reports chills and fever(s); Denies sweats Eyes Eyes: Denies change in vision ENT ENT ED: Denies dysphagia or sore throat Cardiovascular Cardiovascular: Denies chest pain, leg edema, palpitations or racing heartbeat Respiratory/Chest Respiratory/Chest: Denies cough, dyspnea or dyspnea on exertion Gastrointestinal Gastrointestinal: Reports vomiting; Denies abdominal pain, diarrhea or nausea Genitourinary Genitourinary ED: Denies dysuria, hematuria or urinary frequency Musculoskeletal Musculoskeletal: Denies back pain, extremity pain or neck pain Integumentary Denies rash or wounds Neurologic Neurologic: Denies headache(s), paresthesias or weakness EXAM Physical Exam Const Vital Signs: 08/08/22 10:57 08/08/22 11:00 08/08/22 11:00 Temperature 99 F 99 F Temperature Source Oral Oral Pulse Rate 144 H 144 H Respiratory Rate 24 H 24 H Respiratory Effort Normal Non-Labored Respiratory Pattern Tachypnea Blood Pressure 90/34 L 90/34 L Blood Pressure Mean 52 52 Pulse Ox 96 96 Oxygen Delivery Method Room Air Room Air 08/08/22 11:14 08/08/22 12:00 08/08/22 13:11 Temperature 98.1 F 98.2 F Temperature Source Temporal Oral Pulse Rate 142 H 123 H Respiratory Rate 24 H 20 H Respiratory Effort Respiratory Pattern Blood Pressure 73/53 L 96/74 Blood Pressure Mean 59 81 Pulse Ox 100 96 97 Oxygen Delivery Method Room Air Room Air Room Air 08/08/22 13:11 Temperature 98.2 F Temperature Source Oral Pulse Rate 124 H Respiratory Rate 20 H Respiratory Effort Respiratory Pattern Blood Pressure 96/74 Blood Pressure Mean 81 Pulse Ox 97 Oxygen Delivery Method Room Air Positive well nourished and well developed General Appearance ED: well developed and NAD HEENT Reports dry mucous membranes normocephalic and atraumatic Mouth ED: Yes dry mucous membranes Mouth: dry mucous membranes Eyes PERRL, EOMs intact bilaterally and conjunctivae normal General Eye ED: Yes normal appearance of both eyes Neck no lymphadenopathy and supple General: Negative for tenderness Chest Wall Chest: Negative for tenderness Resp normal respiratory effort and normal air movement Effort and Inspection: symmetric chest movement; Negative for respiratory distress Cardio regular rhythm and no murmurs Rate: tachycardic Peripheral Pulses: pulses 2+ throughout GI normal to inspection, nondistended, normoactive bowel sounds and non-tender Palpation: Negative for guarding or rebound tenderness present Back/Spine no CVA tenderness and no thoracic nor lumbar tenderness Extremity normal to inspection General Extremety ED: Negative for edema or tenderness General Extremity: Negative for edema Neuro oriented x3, CN's II-XII intact bilaterally and no sensory deficits noted Sensorium / Orientation: awake and alert Skin no rashes or lesions noted and no wounds MDM MDM MDM Narrative Medical decision making narrative: Patient EKG sinus tachycardia blood pressure at times in the monitor systolic 70s. Clinically awake. She is given fluid boluses. Neutropenic work-up initiated. Cultures are in the lab. White count returned at 0.4. Hemoglobin 9.2 stable from previous. Creatinine 1.58 up from 1. Lactic acid returned at 3.4. Chest x-ray 1 view reviewed by myself and read by radiology shows no acute findings. Right Mediport was noted. Urine is pending. She required multiple doses of IV fluids. On her third liter blood pressure slowly improving up to systolic 90s heart rate in the 120s. She is covered with Zosyn vancomycin for neutropenia. COVID influenza negative. I spoke with hospitalist Dr. Manriquez for admission to ICU. Request discussion with pst manager for which. Page for update. 1425: Spoke with Dr. Gómez updated. She is 3 L into fluids per nursing transient dip in blood pressure additional fluids pressors are ordered if her map drops below 65. Clinically remains awake. She will be admitted to ICU. Lab Data Attestation: I reviewed the patient's lab results. Labs: Laboratory Results - last 24 hr 08/08/22 08/08/22 08/08/22 11:03 11:03 11:03 WBC 0.4 L* RBC 2.80 L Hgb 9.2 L Hct 27.9 L MCV 99.6 H MCH 32.9 H MCHC 33.0 RDW Std Deviation 62.2 H RDW Coeff of Real 16.9 H Plt Count 185 MPV 9.0 Immature Gran % (Auto) 0.000 Neut % (Auto) 14.3 L Lymph % (Auto) 31.4 Bacon % (Auto) 54.3 H Eos % (Auto) 0.0 Baso % (Auto) 0.0 Absolute Neuts (auto) 0.1 L Absolute Lymphs (auto) 0.11 L Nucleated RBC % 0 Differential Comment Diff Path Review December foll PT 14.7 INR 1.2 APTT 31.3 Sodium 134 L Potassium 3.8 Chloride 101 Carbon Dioxide 26.0 Anion Gap 7 BUN 19 H Creatinine 1.58 H Estim Creat Clear Calc 25.50 Est GFR (MDRD) Af Amer 42 L Est GFR (MDRD) Non-Af 35 L BUN/Creatinine Ratio 12.0 Glucose 101 Lactic Acid Calcium 8.7 Total Bilirubin 0.50 AST 11 L ALT 13 Alkaline Phosphatase 48 Total Protein 6.1 L Albumin 2.7 L Globulin 3.4 Albumin/Globulin Ratio 0.8 L 08/08/22 11:15 WBC RBC Hgb Hct MCV MCH MCHC RDW Std Deviation RDW Coeff of Real Plt Count MPV Immature Gran % (Auto) Neut % (Auto) Lymph % (Auto) Bacon % (Auto) Eos % (Auto) Baso % (Auto) Absolute Neuts (auto) Absolute Lymphs (auto) Nucleated RBC % Differential Comment Diff Path Review PT INR APTT Sodium Potassium Chloride Carbon Dioxide Anion Gap BUN Creatinine Estim Creat Clear Calc Est GFR (MDRD) Af Amer Est GFR (MDRD) Non-Af BUN/Creatinine Ratio Glucose Lactic Acid 3.4 H* Calcium Total Bilirubin AST ALT Alkaline Phosphatase Total Protein Albumin Globulin Albumin/Globulin Ratio Radiography Diagnostic Testing: Clinical Impression(s) from Imaging Studies Chest X-Ray 08/08/22 11:22 IMPRESSION: Hyperinflation. The lungs are clear. A right-sided Port-A-Cath is seen with the tip at the junction of the superior vena cava and right atrium. Electronically Signed: Rios Caraballo MD at 12:25 EST , EKG Initial EKG: Attestation: I personally reviewed and interpreted this EKG as follows: Comments: Sinus tachycardia rate of 134, no ST or T wave changes. Critical Care Time Critical Care Time: Yes Critical care time (excluding procedures): 30-74 minutes, Discussing w/Patient &/or Family/Salesperson Household Appliances, Discussing w/Consultants, Arranging Admission or Transfer, Performing Direct Patient Care at Bedside and - (45 minutes) Discharge Plan Dx/Rx/DC Orders Clinical Impression: Hypotension, Neutropenia, Lactic acidosis, Sinus tachycardia, Anemia, Acute renal insufficiency, Diffuse large b-cell lymphoma, intrapelvic lymph nodes Disposition Disposition: Acute Care Hospital [facility] Discharge Date/Time: 08/08/22 14:41
[2022-08-08] MEDS: 0.9% Normal Saline 1,000 ML 999 ML IV ×4 (11:17→14:27)
--- NOTE | 2022-08-08 11:22 | RAD_ITS ---
STUDY: X-RAY CHEST REASON FOR EXAM: Female, 66 years old. Hypotension TECHNIQUE: Single AP portable view of the chest. COMPARISON: Comparison is made with prior study dated 06/17/2022. FINDINGS: A right-sided portacatheter is seen with the tip at the junction of the superior vena cava and right atrium. EKG lead are seen. Hyperinflation. The lungs are clear. There is no demonstrated pleural abnormality. Normal size heart. Normal mediastinum and sushma. Normal visualized pulmonary arteries. Normal visualized aortic arch and descending thoracic aorta. There are diffuse degenerative changes of the visualized thoracic spine. Normal visualized ribs, clavicles, and shoulders. There is no demonstrated abnormality of the visualized soft tissue structures of the upper abdomen. RAD/Chest 1 View (Portable) IMPRESSION: Hyperinflation. The lungs are clear. A right-sided Port-A-Cath is seen with the tip at the junction of the superior vena cava and right atrium. Electronically Signed: Rios Caraballo MD at 12:25 EST ,
[2022-08-08 11:23] LABS: Absolute Lymphocyte Count 0.11 X10^3/uL (0.83-4.51); Absolute Neutrophil Count 0.1 X10^3/uL (2.0-7.7); Hematocrit 27.9 % (37-47); Hemoglobin 9.2 g/dL (12.0-15.0); Lymphocyte # 0.11 X10^3/ul (0.83-4.51); Lymphocyte % 31.4 % (19-41); Mean Corpuscular Hgb 32.9 pg (27.0-32.0); Mean Corpuscular Volume 99.6 fL (81-99); Monocyte# 0.19 X10^3/uL; Monocyte% 54.3 % (0-10); NRBC Flagged by Analyzer 0 % (0-5); Neutrophil # 0.05 X10^3/uL (2.7-7.7); Neutrophil % 14.3 % (47-70); POSITIVE COUNT YES; POSITIVE DIFFERENTIAL YES; POSITIVE MORPHOLOGY YES; Platelet Count 185 K/mm3 (150-450); RBC Distribution Width CV 16.9 % (11.6-14.6); RBC Distribution Width SD 62.2 fl (35.1-43.9); White Blood Count 0.4 K/mm3 (4.4-11.0)
[2022-08-08 11:27] LABS: Differential Indicated SCAN CRITERIA MET
[2022-08-08 11:28] LABS: International Normalized Ratio 1.2; Prothrombin Time (Protime)PT. 14.7 SECONDS (11.7-14.9)
[2022-08-08 11:29] LABS: Partial Thromboplast Time 31.3 Seconds (24.1-36.2)
[2022-08-08 11:36] LABS: ALB/GLOB Ratio 0.8 RATIO (0.9-2.4); AST(SGOT) 11 U/L (15-37); Alanine Aminotransfer ALT/SGPT 13 U/L (13-56); Albumin, Serum 2.7 g/dL (3.2-5.0); Alkaline Phosphatase 48 U/L (45-117); Anion Gap 7 (5-15); BUN 19 mg/dL (7-18); Calcium,Total 8.7 mg/dL (8.5-10.1); Chloride 101 mmol/L (98-107); Creatinine, Serum 1.58 mg/dL (0.55-1.02); EST Glomerular Filtration Rate 35 mL/min (>60); Est Glom Filt Rate - Afr Amer 42 mL/min (>60); Globulin 3.4 g/dL (2.2-4.2); Glucose 101 mg/dL (74-106); Potassium 3.8 mmol/L (3.5-5.1); Protein, Total 6.1 g/dL (6.4-8.2); Sodium Level 134 mmol/L (136-145)
[2022-08-08 12:00] LABS: Lactic Acid 3.4 mmol/L (0.4-1.9)
--- NOTE | 2022-08-08 13:07 | HP.PCM.HOS_ITS ---
HPI - General General Date of Admission: 08/08/22 Date of Service: 08/08/22 Chief Complaint: vomiting, nausea HPI Narrative DEVIN BALLESTEROS, is a 66 F with a PMH as outlined who presents via the ED on 08/08/2022 with a complaint of nausea and vomiting. She has a history of Non Hodgkin;s lymphoma and follows with Dr Justin. She has had 5 sessions of chemotherapy. She was admitted via the ED o/a of syncope. She was getting out of bed and felt dizzy and lightheaded, and she had an episode of syncope. She denied any chest pain, palpitations, dizziness, but admitted to chills and fever. She denied any cough or urinary symptoms. Review of systems is otherwise negative. Vitals were BP of 96/74, with IA of 124, RR of 20 and temp of 98.2F. SHe was saturating at 97% on room air. CBC showed wbc of 0/4 with hb of 9.2 and platelets of 185. Chemistry showed sodium of 134 with potassium of 3.8 and Cr of 1.58. Lactic acid was 3.4. COVID and influenza testing was negative. Urinalysis was pending. She is being admitted to be managed for syncope due to hypotension in setting of non Hodgkin;s lymphoma. She was given a dose of IV vancomycin and zosyn. [facility] Medical History (Updated 08/09/22 @ 12:[address] Jarrod Umanzor MD) Abdominal pain Abnormal weight loss Anemia Anxiety Arthritis Asthma Back pain Blackout Cancer Carotid artery stenosis Chronic cough CINV (chemotherapy-induced nausea and vomiting) Constipation Depression Diffuse large b-cell lymphoma, intrapelvic lymph nodes Dizziness DLBCL (diffuse large B cell lymphoma) Elevated troponin Encounter for chemotherapy management Encounter for education Essential (primary) hypertension Excessive bleeding Gastric reflux GERD (gastroesophageal reflux disease) High cholesterol History of echocardiogram History of edema History of GI bleed History of retained foreign body fully removed History of steroid therapy Hypertension Hypothyroidism Injury of head and neck Leg cramps Lower abdominal pain, unspecified Mucositis (ulcerative) due to antineoplastic therapy Post-menopausal Severe protein-calorie malnutrition Shortness of breath on exertion Smoker Smoker Thyroid disease Tooth pain Wears glasses Home Medications losartan 100 mg tablet 100 mg PO DAILY blood pressure 01/28/22 [History Last Taken 08/07/22] clopidogrel 75 mg tablet 75 mg PO DAILY anti platelet 02/08/22 [History Last Taken 08/07/22] fluticasone fur. 100 mcg-umeclid 62.5 mcg-vilant 25 mcg inhalat.powder (Trelegy Ellipta) 1 inh inhalation DAILY 03/11/22 [History Last Taken 08/06/22] levothyroxine 25 mcg tablet (Euthyrox) 25 mcg PO DAILY 03/11/22 [History Last Taken 08/07/22] lidocaine-prilocaine 2.5 %-2.5 % topical cream 1 applic topical ONCE PRN port access 30 days #30 grams 03/13/22 [Rx Last Taken Unknown] ondansetron 8 mg disintegrating tablet 8 mg PO Q8H PRN nausea and vomiting #30 tabs 03/13/22 [Rx Last Taken Unknown] docusate sodium 100 mg capsule (Colace) 100 mg PO DAILY 04/22/22 [History Last Taken Unknown] pantoprazole 40 mg tablet,delayed release (Protonix) 40 mg PO BID #60 tabs 05/28/22 [Rx Last Taken 08/07/22] MAGIC MOUTH WASH (BMX) 180 mL suspension 5 ml PO Q4H PRN mouth pain #180 mL 06/03/22 [Rx Last Taken Unknown] dexamethasone 4 mg tablet 4 mg PO DAILY #30 tabs 07/15/22 [Rx Last Taken 08/07/22] ferrous sulfate 325 mg (65 mg iron) tablet 325 mg PO BID 07/29/22 [History Last Taken 08/07/22] potassium chloride 20 mEq tablet,extended release 20 meq PO DAILY #14 tabs 07/29/22 [Rx Last Taken 08/07/22] Allergy/AdvReac Type Severity Reaction Status Date / Time No Known Allergies Allergy Verified 08/08/22 11:03 Family History Grandmother Breast cancer Hypertension Sister Cancer CERVICAL Sister Cancer UTERUS Brother Cancer ESOPHAGEAL Brother Cancer PROSTATE Mother Hypertension Diabetes Surgical History History of esophagogastroduodenoscopy (EGD) S/P cataract extraction Social History Smoking Status: Current every day smoker tobacco type: cigarettes substance use type: does not use ROS Constitutional Constitutional: Reports chills, fatigue, fever(s), malaise and weakness; Denies anorexia Eyes Eyes: Denies change in vision ENT HEENT: Denies dysphagia, headache(s), hearing loss, nasal congestion or sore throat Cardiovascular Cardiovascular: Denies chest pain, dyspnea on exertion, edema, lightheadedness, orthopnea, palpitations, rapid heart rate or syncope Respiratory/Chest Respiratory/Chest: Denies cough, dyspnea, productive cough, shortness of breath at rest, shortness of breath with exertion or wheezing Gastrointestinal Gastrointestinal: Reports nausea and vomiting; Denies abdominal pain, constipation or diarrhea Genitourinary Genitourinary: Denies dysuria Musculoskeletal Musculoskeletal: Denies arthralgias Neurologic Neurologic: Denies confusion, dizziness, focal weakness, headache(s), seizures, syncope or tingling Psychiatric Psychiatric: Denies anxiety Endocrine Endocrinology: Denies change in body appearance Vital Signs Vital Signs Vital Signs: 08/08/22 10:57 08/08/22 11:00 08/08/22 11:00 Temperature 99 F 99 F Temperature Source Oral Oral Pulse Rate 144 H 144 H Respiratory Rate 24 H 24 H Respiratory Effort Normal Non-Labored Respiratory Pattern Tachypnea Blood Pressure 90/34 L 90/34 L Blood Pressure Mean 52 52 Pulse Ox 96 96 Oxygen Delivery Method Room Air Room Air 08/08/22 11:14 08/08/22 12:00 Temperature 98.1 F Temperature Source Temporal Pulse Rate 142 H Respiratory Rate 24 H Respiratory Effort Respiratory Pattern Blood Pressure 73/53 L Blood Pressure Mean 59 Pulse Ox 100 96 Oxygen Delivery Method Room Air Room Air Weight Weight: 125 lb 14.143 oz Body Mass Index (BMI) 24.5 Physical Exam Const alert, oriented x3 and no apparent distress Orientation / Consciousness: lethargic HEENT normocephalic, head/scalp atraumatic and hearing grossly normal bilaterally HEENT Narrative: dry oral mucosa Eyes PERRL and EOMs intact bilaterally Neck no lymphadenopathy, supple and no JVD Resp normal respiratory effort, no retractions, no use of accessory muscles and clear to auscultation bilaterally Cardio regular rhythm, S1 normal heart sound, S2 normal heart sound and no murmurs Cardio Narrative: tachycardic GI normal to inspection, nondistended, normoactive bowel sounds, soft to palpation and non-tender Extremity normal to inspection, full ROM and no clubbing, cyanosis or edema Neuro oriented x3, CN's II-XII intact bilaterally, moves all extremities and no focal motor deficits Sensorium / Orientation: awake and alert Motor Exam: strength 5/5 throughout Psych affect normal Results Lab / Micro Data Result Diagrams: 08/09/22 14:40 08/09/22 02:30 Labs: Laboratory Results - last 24 hr 08/08/22 11:03: WBC 0.4 L*, RBC 2.80 L, Hgb 9.2 L, Hct 27.9 L, MCV 99.6 H, MCH 32.9 H, MCHC 33.0, RDW Std Deviation 62.2 H, RDW Coeff of Real 16.9 H, Plt Count 185, MPV 9.0, Immature Gran % (Auto) 0.000, Neut % (Auto) 14.3 L, Lymph % (Auto) 31.4, Izard % (Auto) 54.3 H, Eos % (Auto) 0.0, Baso % (Auto) 0.0, Absolute Neuts (auto) 0.1 L, Absolute Lymphs (auto) 0.11 L, Nucleated RBC % 0, Differential Comment , Diff Path Review December08/08/22 11:03: PT 14.7, INR 1.2, APTT 31.3 08/08/22 11:03: Sodium 134 L, Potassium 3.8, Chloride 101, Carbon Dioxide 26.0, Anion Gap 7, BUN 19 H, Creatinine 1.58 H, Estim Creat Clear Calc 25.50, Est GFR (MDRD) Af Amer 42 L, Est GFR (MDRD) Non-Af 35 L, BUN/Creatinine Ratio 12.0, Glucose 101, Calcium 8.7, Total Bilirubin 0.50, AST 11 L, ALT 13, Alkaline Phosphatase 48, Total Protein 6.1 L, Albumin 2.7 L, Globulin 3.4, Albumin/Globulin Ratio 0.8 L 08/08/22 11:15: Lactic Acid 3.4 H* Micro: Microbiology 08/08/22 11:20 Nasal Secretion SARS-CoV-2 & FLU Antigen (Rapid) - Final Radiology Impression Chest X-Ray 08/08/22 11:22 IMPRESSION: Hyperinflation. The lungs are clear. A right-sided Port-A-Cath is seen with the tip at the junction of the superior vena cava and right atrium. Electronically Signed: Rios Caraballo MD at 12:25 EST , Assessment & Plan Assessment/Plan (1) Hypotension: (2) Neutropenia: PLAN: Plan #Syncope and hypotension * etiology unclear. May be due to dehydration, or an infectious pathology in light of her being immunosuppressed. * Admit to ICu o/a of refractory hypotension * continue hydrating with IVF. IF she doesnt respond to IVF, start levophed to maintain MAP >65 * get blood and urine cultures * covid and influenza screen negative * Started on IV vancomycin and zosyn in the ED, will continue * consult critical care * IV zofran * fall precautions * #Diffuse large B cell lymphoma * follows with Dr Valles * currently undergoing chemotherapy; has completed 5 sessions of chemotherapy * #Leucopenia and anemia * wbc is 0.4, hb is 9.2. Platelets are WNL at 185 * leucopenia likely due to chemotherapy. If it doesnt start to improve, will consider sq granix * #Hypothyroidism: on synthroid #Hypertension:hold losartan due to hypotension DVT prophylaxis; lovenox Code status: full code * Patient counseled extensively about different types of CODE STATUS including full code, DNR CCA and DNR CCA. Patient elects to be full code. * Total vocf-hw-lobj time 16 minutes. * Total critical care time spent: 50 mins Charges/Coding Visit Charges Inpatient E&M: 09780 Init Hosp L3 Procedures Hospitalists Procedures: 30410 Critial Care 1st Hr (advanced care plan: 43550)
--- NOTE | 2022-08-08 14:30 | ED.RN ---
After 3L fluids completed, patient MAP was 53-59 for 4 readings on the monitor. Requested more fluids and consider pressor. Dr Hendrickson requested access of power port. Once completed port access, map was 72 so holding the pressor per Dr Hendrickson and will monitor. 4th bag of fluids hanging and patient resting while awaiting admission.
[2022-08-08] MEDS: 0.9% Normal Saline 1,000 ML 150 ML IV ×2 (15:14→21:55)
[2022-08-08 15:26] LABS: Reflex Lactate? Y
--- NOTE | 2022-08-08 15:34 | PCM.RX.CS ---
Consult Pharmacy has been consulted to manage selected antiobiotic: Vancomycin Type of Consult: New start Suspected Infection: Other Labs: Sodium 134 mmol/L (136-145) L 08/08/22 11:03 Potassium 3.8 mmol/L (3.5-5.1) 08/08/22 11:03 Chloride 101 mmol/L (98-107) 08/08/22 11:03 Carbon Dioxide 26.0 mmol/L (21.0-32.0) 08/08/22 11:03 Anion Gap 7 (5-15) 08/08/22 11:03 BUN 19 mg/dL (7-18) H 08/08/22 11:03 Creatinine 1.58 mg/dL (0.55-1.02) H 08/08/22 11:03 Est GFR (MDRD) Af Amer 42 mL/min (>60) L 08/08/22 11:03 Est GFR (MDRD) Non-Af 35 mL/min (>60) L 08/08/22 11:03 BUN/Creatinine Ratio 12.0 RATIO (10-20) 08/08/22 11:03 Glucose 101 mg/dL (74-106) 08/08/22 11:03 Microbiology: Microbiology 08/08/22 11:20 Nasal Secretion SARS-CoV-2 & FLU Antigen (Rapid) - Final Goal Trough: 15-20 mcg/mL Pharmacy Plan for Drug Dosing: NEW START IV VANCOMYCIN Consulting Physician: Dr. Manriquez Indication: R/O infection Goal Trough: 15-20 SrCr: 1.58 CrCl: 26 ml/min Comments: Loading dose 1500mg IV x1 ordered and administered in ED 08/08/22 @1238 Vancomycin Dose: 500mg IV Q24hr to start 08/09/22 @1200 Pending Level: 08/10/22 @1130, prior to 3rd total dose per protocol Pharmacy Service will continue to monitor and adjust dosing as required.
[2022-08-08] MEDS: Acetaminophen 325 MG Tablet 650 MG PO (15:40)
[2022-08-08 16:24] LABS: Lactic Acid 1.6 mmol/L (0.4-1.9)
[2022-08-08] MEDS: Ferrous Sulfate 325 MG Tablet PO (18:42)
[2022-08-08] MEDS: Budesonide Respules 0.5 MG/2 ML AMPUL.NEB. INHALATION (19:11)
[2022-08-08] MEDS: Ipratropium/Albuterol Sulfate 3 ML AMPUL.NEB INHALATION (19:11)
[2022-08-08] MEDS: Pantoprazole Sodium 40 MG Tablet PO (21:19)
--- NOTE | 2022-08-08 21:30 | NURSING ---
Pt attempted to void x2 on bedpan, unable to go; bladder palpated full and above pubic bone. Explained straight cath procedure to pt and she was ok. Straight cath per policy for 975ml of clear yellow urine, sample obtained; pt chavo all well and stated relief.
[2022-08-08 22:08] LABS: Bacteria 0 SEEN /hpf (None Seen); Color, Urine Yellow (Yellow); Glucose, Dipstick Normal (Normal); Ketone-Dipstick Negative (Negative); Leukocyte Esterase-Dipstick Negative /ul (Negative); Mucous, Urine 0 SEEN /hpf (<or=2+); Nitrite-Dipstick Negative (Negative); Occult Blood-Urine Negative /ul (Negative); Protein-Dipstick Negative (Negative); Red Blood Cells-Urine 0 SEEN /hpf (0-5); Specific Gravity, Urine 1.005 (1.002-1.030); Squamous Epithelial Cells - UA 0 SEEN /hpf (5-10); Urine Bilirubin Dipstick Negative (Negative); Urine Clarity Clear (Clear); Urine Urobilinogen Normal (Normal); White Blood Cells 0 SEEN /hpf (0-5)
[2022-08-09] VITALS (53 sets, daily range): BP systolic 63–124; BP diastolic 47–86; PULSE 77–150; RESP 16–30; TEMP 36.4–38.8; O2SAT 93–100
[2022-08-09] MEDS: Acetaminophen 325 MG Tablet 650 MG PO (02:22)
[2022-08-09] MEDS: 0.9% Saline Lock 10 ML Syringe IV (02:22)
[2022-08-09 02:34] LABS: Absolute Lymphocyte Count 0.06 X10^3/uL (0.83-4.51); Hematocrit 24.4 % (37-47); Hemoglobin 8.1 g/dL (12.0-15.0); Lymphocyte # 0.06 X10^3/ul (0.83-4.51); Lymphocyte % 28.6 % (19-41); Mean Corp Hgb Conc 33.2 g/dL (32-36); Mean Corpuscular Hgb 32.5 pg (27.0-32.0); Mean Platelet Vol. 9.1 fl (6.2-12.0); Monocyte# 0.14 X10^3/uL; Monocyte% 66.7 % (0-10); NRBC Flagged by Analyzer 0 % (0-5); Neutrophil # 0.01 X10^3/uL (2.7-7.7); Neutrophil % 4.7 % (47-70); POSITIVE COUNT YES; POSITIVE DIFFERENTIAL YES; POSITIVE MORPHOLOGY YES; Platelet Count 132 K/mm3 (150-450); RBC Distribution Width CV 16.8 % (11.6-14.6); RBC Distribution Width SD 60.8 fl (35.1-43.9); Red Blood Count 2.49 M/mm3 (4.2-5.4)
[2022-08-09 02:43] LABS: Differential Indicated SCAN CRITERIA MET
[2022-08-09 02:51] LABS: White Blood Count 0.2 K/mm3 (4.4-11.0)
[2022-08-09 03:01] LABS: Anion Gap 5 (5-15); BUN 18 mg/dL (7-18); BUN/Creat Ratio 15.8 RATIO (10-20); Calcium,Total 7.2 mg/dL (8.5-10.1); Chloride 109 mmol/L (98-107); Creatinine, Serum 1.14 mg/dL (0.55-1.02); EST Glomerular Filtration Rate 51 mL/min (>60); Est Glom Filt Rate - Afr Amer 61 mL/min (>60); Estimated Creatinine Clearance 35.34 ml/min; Glucose 93 mg/dL (74-106); Potassium 3.4 mmol/L (3.5-5.1); Sodium Level 136 mmol/L (136-145)
[2022-08-09 03:03] LABS: Anisocytosis 1+; Platelet Estimate SLT DEC (ADEQ)
[2022-08-09] MEDS: Levothyroxine 25 MCG TABLET PO (05:10)
[2022-08-09] MEDS: Ipratropium/Albuterol Sulfate 3 ML AMPUL.NEB INHALATION ×2 (06:55→19:49)
[2022-08-09] MEDS: Budesonide Respules 0.5 MG/2 ML AMPUL.NEB. INHALATION ×2 (06:56→19:49)
[2022-08-09] MEDS: Ferrous Sulfate 325 MG Tablet PO ×2 (08:34→17:30)
[2022-08-09] MEDS: dexAMETHasone 4 MG Tablet PO (08:34)
[2022-08-09] MEDS: Docusate Sodium 100 MG Capsule PO (08:34)
[2022-08-09] MEDS: Clopidogrel Bisulfate 75 MG Tablet PO (08:35)
[2022-08-09] MEDS: Potassium Chloride Oral Tablet 20 MEQ PO ×2 (08:35→17:30)
[2022-08-09] MEDS: Pantoprazole Sodium 40 MG Tablet PO ×2 (08:35→21:39)
--- NOTE | 2022-08-09 09:56 | EKG12_ITS ---
Test Reason : Blood Pressure : / mmHG Vent. Rate : 076 BPM Atrial Rate : 076 BPM P-R Int : 140 ms QRS Dur : 100 ms QT Int : 418 ms P-R-T Axes : 012 -02 028 degrees QTc Int : 470 ms Normal sinus rhythm Low voltage QRS Borderline ECG When compared with ECG of 08-AUG-2022 11:05, MANUAL COMPARISON REQUIRED, DATA IS UNCONFIRMED Confirmed by LYNNE TRINH, TEOFILO ([id number]), newspaper editor managing MCKENZIE HAND ([id number]) on 08/09/2022 1:06:36 PM Referred By: Confirmed By:TEOFILO BATISTA MD
[2022-08-09] MEDS: Enoxaparin 40 MG/0.4 ML Syringe SC (11:01)
--- NOTE | 2022-08-09 11:37 | PCM.RX.CS ---
Consult Pharmacy has been consulted to manage selected antiobiotic: Vancomycin Type of Consult: Follow-up Suspected Infection: Other Labs: Sodium 136 mmol/L (136-145) 08/09/22 02:30 Potassium 3.4 mmol/L (3.5-5.1) L 08/09/22 02:30 Chloride 109 mmol/L (98-107) H 08/09/22 02:30 Carbon Dioxide 22.0 mmol/L (21.0-32.0) 08/09/22 02:30 Anion Gap 5 (5-15) 08/09/22 02:30 BUN 18 mg/dL (7-18) 08/09/22 02:30 Creatinine 1.14 mg/dL (0.55-1.02) H 08/09/22 02:30 Est GFR (MDRD) Af Amer 61 mL/min (>60) 08/09/22 02:30 Est GFR (MDRD) Non-Af 51 mL/min (>60) L 08/09/22 02:30 BUN/Creatinine Ratio 15.8 RATIO (10-20) 08/09/22 02:30 Glucose 93 mg/dL (74-106) 08/09/22 02:30 Microbiology: Microbiology 08/08/22 11:20 Nasal Secretion SARS-CoV-2 & FLU Antigen (Rapid) - Final Goal Trough: 15-20 mcg/mL Pharmacy Plan for Drug Dosing: DAILY ASSESSMENT Current Vancomycin Dose: 500mg IV Q24h Number of Doses Received: 1500mg loading dose and zero scheduled doses Current Renal Function: 1.14 Renal Function Trend: improvement Lab/Micro: cultures pending Any Change in Vanc Plan: Patient with improved renal function compared to yesterday (SCr 1.58 --> 1.14 today). With this improvement, pt now qualifies for vancomycin 750mg IV Q24hr dosing. Of note; pt has not had 1st scheduled dose of vancomycin yet. with this in mind, we will start vancomycin 750mg IV Q24hr to start today, 08/09 @1200. Pending Level: 08/10/22 @1130, prior to 3rd total dose of regimen per protocol Pharmacy Service will continue to monitor and adjust dosing as required.
[2022-08-09 11:52] LABS: Troponin-I HS 632 pg/mL (3.0-54.0)
--- NOTE | 2022-08-09 11:52 | PN.HOSP_ITS ---
Subjective Subjective Patient seen and examined. She had no active complaints today. She denies any fever, chills, cough, chest pain, palpitation, dizziness, nausea or vomiting. She was on some urinary retention and had to be straight cathed overnight so Bang catheter was placed this morning. She remains on Levophed. Review of sys tems otherwise negative. Objective Data Objective Data Vital Signs: Vital Signs Temp Pulse Resp BP Pulse Ox O2 Del Method O2 Flow Rate 98.3 F 98 22 H 101/59 L 99 Room Air 3 08/09/22 06:00 08/09/22 07:26 08/09/22 07:26 08/09/22 07:00 08/09/22 07:00 08/09/22 08:00 08/08/22 14:32 Oxygen Flow Rate (L/min) 3 Oxygen Delivery Method Room Air Weight: 126 lb 15.78 oz Body Mass Index (BMI) 23.9 Intake & Output: Intake and Output for Last 24 Hours 08/07/22 08/08/22 08/09/22 23:59 23:59 23:59 Intake Total 6061.06 / 6161.06 1423.94 / 1423.94 Output Total 975 / 975 0 / 0 Balance 5086.06 / 5186.06 1423.94 / 1423.94 Lab / Micro Data Result Diagrams: 08/09/22 02:30 08/09/22 02:30 Labs: Laboratory Results - last 24 hr 08/08/22 11:03: WBC 0.4 L*, RBC 2.80 L, Hgb 9.2 L, Hct 27.9 L, MCV 99.6 H, MCH 32.9 H, MCHC 33.0, RDW Std Deviation 62.2 H, RDW Coeff of Real 16.9 H, Plt Count 185, MPV 9.0, Immature Gran % (Auto) 0.000, Neut % (Auto) 14.3 L, Lymph % (Auto) 31.4, [place] % (Auto) 54.3 H, Eos % (Auto) 0.0, Baso % (Auto) 0.0, Absolute Neuts (auto) 0.1 L, Absolute Lymphs (auto) 0.11 L, Nucleated RBC % 0, Differential Comment , Diff Path Review December08/08/22 11:15: Lactic Acid 3.4 H* 08/08/22 15:45: Lactic Acid 1.6 08/08/22 21:50: Urine Color Yellow, Urine Clarity Clear, Urine pH 6.0, Ur Specific [place] 1.005, Urine Protein Negative, Urine Glucose (UA) Normal, Urine Ketones Negative, Urine Occult Blood Negative, Urine Nitrite Negative, Urine Bilirubin Negative, Urine Urobilinogen Normal, Ur Leukocyte Esterase Negative, Urine RBC 0 SEEN, Urine WBC 0 SEEN, Ur Squamous Epith Cells 0 SEEN, Urine Bact eria 0 SEEN, Urine Mucus 0 SEEN 08/09/22 02:30: Sodium 136, Potassium 3.4 L, Chloride 109 H, Carbon Dioxide 22.0, Anion Gap 5, BUN 18, Creatinine 1.14 H, Estim Creat Clear Calc 35.34, Est GFR (MDRD) Af Amer 61, Est GFR (MDRD) Non-Af 51 L, BUN/Creatinine Ratio 15.8, Glucose 93, Calcium 7.2 L 08/09/22 02:30: WBC 0.2 L*, RBC 2.49 L, Hgb 8.1 L, Hct 24.4 L, MCV 98.0, MCH 32.5 H, MCHC 33.2, RDW Std Deviation 60.8 H, RDW Coeff of Real 16.8 H, Plt Count 132 L, MPV 9.1, Immature Gran % (Auto) 0.000, Neut % (Auto) 4.7 L, Lymph % (Auto) 28.6, [place] % (Auto) 66.7 H, Eos % (Auto) 0.0, Baso % (Auto) 0.0, Absolute Neuts (auto) 0.0 L, Absolute Lymphs (auto) 0.06 L, Nucleated RBC % 0, Diff Path Review December foll, Platelet Estimate SLT DEC, Anisocytosis 1+ Micro: Microbiology 08/08/22 11:20 Nasal Secretion SARS-CoV-2 & FLU Antigen (Rapid) - Final Radiography Diagnostic Testing: Radiology Impression Chest X-Ray 08/08/22 11:22 IMPRESSION: Hyperinflation. The lungs are clear. A right-sided Port-A-Cath is seen with the tip at the junction of the superior vena cava and right atrium. Electronically Signed: Rios Caraballo MD at 12:25 EST , Physical Exam Const alert, oriented x3 and no apparent distress HEENT normocephalic, head/scalp atraumatic and hearing grossly normal bilaterally Head and Scalp: normocephalic Mouth: dry mucous membranes Eyes PERRL, EOMs intact bilaterally and conjunctivae normal Neck no lymphadenopathy, supple and no JVD Resp normal respiratory effort, no retractions, no use of accessory muscles and clear to auscultation bilaterally Cardio regular rate, regular rhythm, S1 normal heart sound, S2 normal heart sound and no murmurs GI normal to inspection, nondistended, normoactive bowel sounds, soft to palpation and non-tender Extremity normal to inspection, full ROM and no clubbing, cyanosis or edema Neuro oriented x3, CN's II-XII intact bilaterally, moves all extremities and no focal motor deficits Sensorium / Orientation: awake and alert Motor Exam: strength 5/5 throughout Psych affect normal Assessment & Plan Assessment/Plan (1) Hypotension: (2) Neutropenia: PLAN: Plan #shock, likely septic * Required Levophed and remains on Levophed. * On IV vancomycin and Zosyn. * Blood cultures and urine cultures pending. COVID and influenza screen were negative. * Titrate Levophed to maintain MAP more than 65. * Critical care on board. * * #Diffuse large B cell lymphoma * follows with Dr Olivares * currently undergoing chemotherapy; has completed 5 sessions of chemotherapy * #Pancytopenia * wbc is 0. 2 today with hemoglobin down to 8.1 and platelets also down to 132. * Will discuss with oncology about starting Granix as absolute neutrophil count is 0 * #Hypothyroidism: on synthroid #Hypertension:hold losartan due to hypotension DVT prophylaxis; lovenox Code status: full code * Charges/Coding Visit Charges Inpatient E&M: 70925 Subs Hosp L3
[2022-08-09 12:28] LABS: Hematocrit 25.4 % (37-47); Hemoglobin 8.2 g/dL (12.0-15.0)
--- NOTE | 2022-08-09 12:28 | PCM.PN.INT ---
Assessment & Plan Assessment/Plan (1) Hypotension: PLAN: Possible sepsis, versus cardiogenic shock related to positive troponins and her GI bleed She has received the sepsis protocol and is on IV vancomycin and Zosyn. The patient's been hydrated with 4 L of saline for sepsis resuscitation. Will check a CVP via her port if possible Recommend following CVP at 8 to 12 cm H2O. (2) Elevated troponin: PLAN: Concerning for an infarction. Bolus follow serial troponins, EKGs, Stat echo, to compare with May 2022 for new wall motion abnormalities. Recommend cardiology consultation. Maintain hemoglobin greater than 8, and SPO2 greater than 92 to minimize cardiac strain (3) Neutropenia: PLAN: Supportive care, will defer to oncology whether Neupogen is needed. (4) Lactic acidosis: PLAN: Likely due to patient's hypotension, she was worked up for possible sepsis, is being followed for possible GI bleeding, cardiogenic shock, and await for her clinical situation to become clear as time goes on. Repeat lactate in 6 hours Maintain MAP greater than 65 at all times Patient is not on metformin (5) Sinus tachycardia: PLAN: Likely secondary to underlying problems (6) Anemia: PLAN: Will obtain stool Hemoccult, follow H&H, She has a history of GI bleeding hold her anticoagulation for now. PPIs (7) Acute renal insufficiency: PLAN: Creatinine is 1.58, maintain good hydration, supportive care. (8) DLBCL (diffuse large B cell lymphoma): PLAN: Per oncology (9) Hypokalemia: PLAN: She was supplemented both IV and p.o., 20 mill equivalents of potassium twice daily p.o. today. PLAN: Plan She also has a history of GI bleeding, will treat with PPI aggressively, and involve GI if there is any evidence of objective GI bleeding. Subjective Subjective Feels worse today, more washed out, remains on Levophed, awaiting work-up. Objective Data Objective Data 66 yof? adm with syncope N&V, NHL, s/p chemo x 5 last was in June, admitted for fever and hypotension.? She is in ICU because of pressor dependent hypotension after fluid resuscitation with 4 L of saline yesterday. Her last chemotherapy for NHL was 5 weeks ago, and she is pancytopenic in her manjula now.? She is on empiric vancomycin and zosyn. Today, she stated she feels worse than she did on admission.? She is having black stools but takes iron.? Today, because of persistent labile blood pressure, requirement for Levophed and feeling worse, a troponin was obtained and was positive at 632.? EKG stat had no acute changes. She will have a stat echo today. We are also following H&H. Her echocardiogram in May 2022 showed normal LV size, left ventricular systolic function, with ejection fraction of 55%.? There was stage I diastolic dysfunction, PA pressure 30, Today she denied any chest pain, palpitations, dizziness, but admitted to chills and fever on the day of admission. She denied any cough or urinary symptoms. Review of systems is otherwise negative.? Lab review: Sodium of 134 with potassium of 3.8 and Cr of 1.58. Lactic acid was 3.4. COVID and influenza testing was negative. Urinalysis was pending. Vital Signs: Vital Signs Temp Pulse Resp BP Pulse Ox O2 Del Method O2 Flow Rate 98.1 F 77 16 102/65 99 Room Air 3 08/09/22 11:00 08/09/22 11:00 08/09/22 11:00 08/09/22 11:30 08/09/22 11:00 08/09/22 11:00 08/08/22 14:32 Oxygen Flow Rate (L/min) 3 Oxygen Delivery Method Room Air Weight: 126 lb 15.78 oz Body Mass Index (BMI) 23.9 Intake & Output: Intake and Output for Last 24 Hours 08/07/22 08/08/22 08/09/22 23:59 23:59 23:59 Intake Total 6061.06 / 6161.06 1574.82 / 1574.82 Output Total 975 / 975 0 / 0 Balance 5086.06 / 5186.06 1574.82 / 1574.82 Lab / Micro Data Result Diagrams: 08/09/22 02:30 08/09/22 02:30 Labs: Laboratory Results - last 24 hr 08/08/22 15:45: Lactic Acid 1.6 08/08/22 21:50: Urine Color Yellow, Urine Clarity Clear, Urine pH 6.0, Ur Specific [place] 1.005, Urine Protein Negative, Urine Glucose (UA) Normal, Urine Ketones Negative, Urine Occult Blood Negative, Urine Nitrite Negative, Urine Bilirubin Negative, Urine Urobilinogen Normal, Ur Leukocyte Esterase Negative, Urine RBC 0 SEEN, Urine WBC 0 SEEN, Ur Squamous Epith Cells 0 SEEN, Urine Bacteria 0 SEEN, Urine Mucus 0 SEEN 08/09/22 02:30: Sodium 136, Potassium 3.4 L, Chloride 109 H, Carbon Dioxide 22.0, Anion Gap 5, BUN 18, Creatinine 1.14 H, Estim Creat Clear Calc 35.34, Est GFR (MDRD) Af Amer 61, Est GFR (MDRD) Non-Af 51 L, BUN/Creatinine Ratio 15.8, Glucose 93, Calcium 7.2 L 08/09/22 02:30: WBC 0.2 L*, RBC 2.49 L, Hgb 8.1 L, Hct 24.4 L, MCV 98.0, MCH 32.5 H, MCHC 33.2, RDW Std Deviation 60.8 H, RDW Coeff of Real 16.8 H, Plt Count 132 L, MPV 9.1, Immature Gran % (Auto) 0.000, Neut % (Auto) 4.7 L, Lymph % (Auto) 28.6, [place] % (Auto) 66.7 H, Eos % (Auto) 0.0, Baso % (Auto) 0.0, Absolute Neuts (auto) 0.0 L, Absolute Lymphs (auto) 0.06 L, Nucleated RBC % 0, Diff Path Review December foll, Platelet Estimate SLT DEC, Anisocytosis 1+ 08/09/22 11:03: Troponin I High Sens 632 H* Micro: Microbiology 08/08/22 11:20 Nasal Secretion SARS-CoV-2 & FLU Antigen (Rapid) - Final Radiography Diagnostic Testing: Radiology Impression Chest X-Ray 08/08/22 11:22 IMPRESSION: Hyperinflation. The lungs are clear. A right-sided Port-A-Cath is seen with the tip at the junction of the superior vena cava and right atrium. Electronically Signed: Rios Caraballo MD at 12:25 EST , Physical Exam Narrative Well-developed, pleasant, pale appearing woman with complete alopecia post chemo, appears chronically ill and tired. HEENT: Extraoculars are intact, no mucositis, no thrush, no discharge Neck is supple Lungs are clear bilaterally, there is a port in content condition in the right upper chest. Heart normal S1-S2 no murmurs rubs or gallops Abdomen is soft, nontender, Extremities have no clubbing cyanosis or edema, Skin: Very pale, cool to the touch. No diaphoresis Neuro: Alert and oriented x3, diffusely weak, grossly nonfocal. Cooperative and pleasant. Charges/Coding Procedures Hospitalists Procedures: 99342 Critial Care 1st Hr (Critical care time spent with patient at bedside, review of documentation, lab results, radiology and other test results, discussion with colleagues and ancillary staff, clinical management of patient, and updating family if applicable, was 45 minutes. This time does not include any procedures, )
--- NOTE | 2022-08-09 12:48 | ECHOLC_ITS ---
Reason For Study: DYSPNEA Procedure This was a limited 2D transthoracic echocardiogram. The study was technically difficult. Contrast injection was performed. Exam performed portable in ICU/CCU. Left Ventricle Normal LV size. Left ventricular systolic function is normal. The estimated ejection fraction is 55 %. No regional wall motion abnormalities noted. Right Ventricle Normal RV size. Normal systolic function. Mitral Valve Normal mitral valve. Tricuspid Valve Normal tricuspid valve. Mild (1+) tricuspid valve insufficiency. Pulmonary artery systolic pressure is 24 mmHg. Pulmonic Valve Normal pulmonic valve. Great Vessels Normal aortic root. The pulmonary is not well visualized. Normal inferior vena cava. Pericardium/Pleural No pericardial effusion. MMode/2D Measurements & Calculations LVIDd: 3.8 cm IVSd: 0.95 cm LAV(MOD-sp4): 26.2 ml LVIDs: 3.2 cm LVPWd: 0.96 cm FS: 17.3 % SV(MOD-sp4): 20.9 ml SV(sp4-el): 22.0 ml LVAd ap4: 22.6 cm2 LVLd ap4: 6.6 cm EDV(MOD-sp4): 63.5 ml EDV(sp4-el): 66.0 ml LVAs ap4: 17.2 cm2 LVLs ap4: 5.7 cm ESV(MOD-sp4): 42.6 ml ESV(sp4-el): 43.9 ml EF(MOD-sp4): 32.9 % EF(sp4-el): 33.4 % LA dimension(2D): 3.1 cm LA A4 area: 14.5 cm2 RA A4 area: 14.6 cm2 ECHO/Echo Limited w/Contrast Interpretation Summary Normal LV size. Left ventricular systolic function is normal. The estimated ejection fraction is 55 %. Mild (1+) tricuspid valve insufficiency. Pulmonary artery systolic pressure is 24 mmHg. Contrast injection was performed. Ordering Physician: Jarrod Umanzor Referring Physician: Richard Mancilla M.D. Performed By: Carleen Vivar RCS
[2022-08-09] MEDS: TBO-FILGRASTIM 300 MCG/0.5 ML ML SC (14:33)
[2022-08-09 14:59] LABS: Hemoglobin 8.1 g/dL (12.0-15.0)
--- NOTE | 2022-08-09 15:13 | CASEMGMT ---
Addendum entered by Michelle Rodríguez 08/09/22 16:41: Margie @ [facility] was made aware pt is still active w/[facility], but plans to get established w/Dr Mancilla soon. Pt made aware [facility] able to accept her w/tentative SOC or Fri. Pt states her spoke w/Dr Mancilla's nurse and he is to contact them once pt is discharged to schedule pt for initial appt. Pt made aware [facility] will initially see her under the direction of a physician @ [facility] and instructed her to notify [facility] once she gets established w/Dr Mancilla so care can be switched over to him. She voices understanding. Pt states she just recently got set up with [employer] through her insurance. She states a DOUBLE BASS PLAYER is scheduled to come to her home for initial visit on 08/16 and then a nurse is to f/u with her monthly after that. Addendum entered by Michelle Rodríguez 08/09/22 16:13: Call received from Margie [facility]. They are able to accept pt. Tentative SOC is or Fri next week. They will review pt again on Friday to confirm SOC date. Original Note: RN CM CORPORATE SALES REPRESENTATIVE CM to room to meet with patient for initial transition planning/care coordination assessment. RN KAREN introduced self and role at [facility]. Pt voices understanding and consents to assessment at this time. Pt resting in bed in no distress at this time. @ bedside. Pt is A/O at this time and answers all questions appropriately. Care providers, pharmacy, and demographics verified/updated at this time. PCP: Pt was going to [facility], but wishes to switch to Dr Mancilla, as her goes to him. Pt is not established w/Dr Mancilla yet. states is going to contact Dr Mancilla's office today to try and schedule pt fpr 1st appt w/abdirizak to get established. Specialists: Dr Valles-oncology. Pt saw a performance instructor in [place], but does not remember his name. Preferred Pharmacy: [facility] Retail Insurance: [employer] [facility] Prescription Benefit: Yes Living Will/HPOA: Pt does not currently have LW/HCPOA but states she has paperwork @ home to compete AD. She states does not need to talk w/SW at this time to complete. Pt made aware that she can contact SW as an out-pt and make appt in the future if she decides she would like to talk with someone about this or would like to utilize [facility] social work for advanced directive completion. Given Spinning Supervisor Rac card with information and contact number. Pt expresses understanding. LNOK: , Nir. 3 adult children Living Arrangements: Lives w/, son, and dtr, in one-story home w/basement. 2-3 steps to enter. Pt can usually bath/dress herself, but assists as needed. Pt manages her own medications. Daughter helps w/laundry and some other home tasks. Transportation: DME: Pt does not currently use any DME. She states is interested in getting a shower chair. She was made aware MCR typically does not cover for this item. She states she has a savings card for certain items and she is going to check into seeing if the shower chair would be covered under this. She and informed of several locations that carry shower chairs and made aware can be purchased on [employer] as well. Pt denies needing other DME at this time. HHC/SNF: No hx of either. Pt interested in HHC. Discussed MCR criteria of being home-bound. states some days pt is so weak she does not leave the house and sometimes has difficulty going up the few steps into the home and he feels she is homebound at this time. PT/OT evals are pending. Pt states she would like [facility] and declines list of other [facility] agencies. Call placed to Margie @ [facility] and referral made. Order placed for SN, PT/OT. Awaiting response. Pt wishes to return home and states has no concerns with going home at time of discharge. Pt smokes 1.5 PPD and does not drink ETOH and denies drug use. CM to follow for further discharge planning/needs. Pt and voice no further concerns/needs at this time. Advised them to ask for CM if any further questions/concerns/needs arise. They voice understanding. PLAN: Perez ACEVES RN CM
[2022-08-09 15:23] LABS: Lactic Acid 1.5 mmol/L (0.4-1.9)
[2022-08-09 15:45] LABS: Troponin-I HS 481 pg/mL (3.0-54.0)
[2022-08-09 18:58] LABS: Calcium,Total 7.1 mg/dL (8.5-10.1); Magnesium 1.3 mg/dL (1.6-2.6); Potassium 3.7 mmol/L (3.5-5.1)
[2022-08-09] MEDS: Magnesium Sulfate 4gm/100mL 4 GM/100 ML IV.SOLN. IV (20:39)
[2022-08-10] VITALS (37 sets, daily range): BP systolic 94–134; BP diastolic 58–87; PULSE 82–123; RESP 14–28; TEMP 36.8–37.2; O2SAT 92–100
[2022-08-10] MEDS: 0.9% Saline Lock 10 ML Syringe IV (04:38)
[2022-08-10] MEDS: Levothyroxine 25 MCG TABLET PO (04:46)
[2022-08-10 04:54] LABS: Absolute Lymphocyte Count 0.12 X10^3/uL (0.83-4.51); Hematocrit 23.4 % (37-47); Hemoglobin 7.7 g/dL (12.0-15.0); Lymphocyte # 0.12 X10^3/ul (0.83-4.51); Lymphocyte % 24.5 % (19-41); Mean Corp Hgb Conc 32.9 g/dL (32-36); Mean Corpuscular Hgb 32.2 pg (27.0-32.0); Mean Corpuscular Volume 97.9 fL (81-99); Mean Platelet Vol. 9.7 fl (6.2-12.0); Monocyte# 0.35 X10^3/uL; Monocyte% 71.4 % (0-10); NRBC Flagged by Analyzer 0 % (0-5); Neutrophil # 0.02 X10^3/uL (2.7-7.7); Neutrophil % 4.1 % (47-70); POSITIVE COUNT YES; POSITIVE DIFFERENTIAL YES; POSITIVE MORPHOLOGY YES; Platelet Count 110 K/mm3 (150-450); RBC Distribution Width CV 16.3 % (11.6-14.6); Red Blood Count 2.39 M/mm3 (4.2-5.4)
[2022-08-10 04:59] LABS: Differential Indicated SCAN CRITERIA MET
--- NOTE | 2022-08-10 04:59 | EKG12_ITS ---
Test Reason : HYPOTENSION Blood Pressure : / mmHG Vent. Rate : 085 BPM Atrial Rate : 085 BPM P-R Int : 144 ms QRS Dur : 054 ms QT Int : 370 ms P-R-T Axes : 055 019 033 degrees QTc Int : 440 ms Normal sinus rhythm Low voltage QRS (Limb Leads) Borderline ECG Confirmed by MAC TRINH, GUY ([id number]), magazine editor MCKENZIE HAND ([id number]) on 08/14/2022 11:05:55 AM Referred By: Confirmed By:GUY WATTS MD
[2022-08-10 05:00] LABS: White Blood Count 0.5 K/mm3 (4.4-11.0)
[2022-08-10 05:12] LABS: Anion Gap 8 (5-15); BUN 16 mg/dL (7-18); BUN/Creat Ratio 15.8 RATIO (10-20); Chloride 106 mmol/L (98-107); Creatinine, Serum 1.01 mg/dL (0.55-1.02); EST Glomerular Filtration Rate 58 mL/min (>60); Est Glom Filt Rate - Afr Amer 71 mL/min (>60); Estimated Creatinine Clearance 39.89 ml/min; Glucose 195 mg/dL (74-106); Potassium 3.6 mmol/L (3.5-5.1); Sodium Level 134 mmol/L (136-145)
[2022-08-10 05:51] LABS: Differential Comment SCANNED
--- NOTE | 2022-08-10 06:44 | EKG12_ITS ---
Test Reason : Blood Pressure : / mmHG Vent. Rate : 160 BPM Atrial Rate : 174 BPM P-R Int : 000 ms QRS Dur : 092 ms QT Int : 284 ms P-R-T Axes : 000 004 062 degrees QTc Int : 463 ms Atrial fibrillation Low voltage QRS (Limb Leads) Abnormal ECG Confirmed by MAC TRINH, GUY ([id number]), medical transcription editor MCKENZIE HAND ([id number]) on 08/14/2022 10:59:13 AM Referred By: Confirmed By:GUY WATTS MD
[2022-08-10] MEDS: Pantoprazole Sodium 40 MG Tablet PO ×2 (08:03→21:51)
[2022-08-10] MEDS: Clopidogrel Bisulfate 75 MG Tablet PO (08:37)
[2022-08-10] MEDS: dexAMETHasone 4 MG Tablet PO (08:37)
[2022-08-10] MEDS: Potassium Chloride Oral Tablet 20 MEQ PO ×2 (08:38→17:46)
[2022-08-10] MEDS: Ferrous Sulfate 325 MG Tablet PO ×2 (08:38→17:46)
[2022-08-10] MEDS: Ipratropium/Albuterol Sulfate 3 ML AMPUL.NEB INHALATION ×2 (09:40→19:53)
[2022-08-10] MEDS: Budesonide Respules 0.5 MG/2 ML AMPUL.NEB. INHALATION ×2 (09:40→19:53)
[2022-08-10] MEDS: TBO-FILGRASTIM 300 MCG/0.5 ML ML SC (10:35)
[2022-08-10 12:48] LABS: Vancomycin, Trough Level 8.7 ug/mL (5.0-15.0)
--- NOTE | 2022-08-10 13:08 | PN.HOSP_ITS ---
Subjective Subjective Patient seen and examined. She had no active complaitns today. She was off levophed drip, and BP was in the 90s systolic, with MAP >65. Review of systems is otherwise negative. Objective Data Objective Data Vital Signs: Vital Signs Temp Pulse Resp BP Pulse Ox O2 Del Method O2 Flow Rate 98.5 F 97 24 H 97/64 100 Room Air 3 08/10/22 11:00 08/10/22 11:00 08/10/22 11:00 08/10/22 11:00 08/10/22 11:00 08/10/22 11:00 08/08/22 14:32 Oxygen Flow Rate (L/min) 3 Oxygen Delivery Method Room Air Weight: 131 lb 2.801 oz Body Mass Index (BMI) 23.9 Intake & Output: Intake and Output for Last 24 Hours 08/08/22 08/09/22 08/10/22 23:59 23:59 23:59 Intake Total 6061.06 / 6161.06 2844.24 / 2863.04 691.60 / 691.60 Output Total 975 / 975 2550 / 2550 1200 / 1200 Balance 5086.06 / 5186.06 294.24 / 313.04 -508.40 / -508.40 Lab / Micro Data Result Diagrams: 08/10/22 04:35 08/10/22 04:35 Labs: Laboratory Results - last 24 hr 08/09/22 14:40: Hgb 8.1 L, Hct 25.0 L 08/09/22 14:40: Lactic Acid 1.5 08/09/22 14:40: Troponin I High Sens 481 H* 08/09/22 18:40: Potassium 3.7, Calcium 7.1 L, Magnesium 1.3 L 08/10/22 04:35: Sodium 134 L, Potassium 3.6, Chloride 106, Carbon Dioxide 20.0 L , Anion Gap 8, BUN 16, Creatinine 1.01, Estim Creat Clear Calc 39.89, Est GFR (MDRD) Af Amer 71, Est GFR (MDRD) Non-Af 58 L, BUN/Creatinine Ratio 15.8, Glucose 195 H, Calcium 8.0 L 08/10/22 04:35: WBC 0.5 L*, RBC 2.39 L, Hgb 7.7 L, Hct 23.4 L, MCV 97.9, MCH 32.2 H, MCHC 32.9, RDW Std Deviation 59.0 H, RDW Coeff of Real 16.3 H, Plt Count 110 L, MPV 9.7, Immature Gran % (Auto) 0.000, Neut % (Auto) 4.1 L, Lymph % (Auto) 24.5, [place] % (Auto) 71.4 H, Eos % (Auto) 0.0, Baso % (Auto) 0.0, Absolute Neuts (auto) 0.0 L, Absolute Lymphs (auto) 0.12 L, Nucleated RBC % 0, Differential Comment SCANNED, Diff Path Review December08/10/22 11:45: Vancomycin Trough 8.7 Micro: Microbiology 08/08/22 21:50 Urine, Clean Catch Urine Culture - Preliminary Culture exhibits no growth. 08/08/22 11:15 Blood Culture (Wb) - Anticubital Left Blood Culture - Preliminary No growth in 48 hours. 08/08/22 12:15 Blood Culture (Wb) - Right Forearm Blood Culture - Pr eliminary No growth in 48 hours. 08/09/22 12:16 Stool Enteric Bacteriology - Final 08/09/22 17:30 Stool C. difficile DNA Amplification - Final 08/09/22 12:16 Stool Stool Occult Blood (YAMILA) - Final 08/08/22 11:20 Nasal Secretion SARS-CoV-2 & FLU Antigen (Rapid) - Final Radiography Diagnostic Testing: Radiology Impression Echocardiogram 08/09/22 12:48 Interpretation Summary Normal LV size. Left ventricular systolic function is normal. The estimated ejection fraction is 55 %. Mild (1+) tricuspid valve insufficiency. Pulmonary artery systolic pressure is 24 mmHg. Contrast injection was performed. Ordering Physician: Jarrod Umanzor Referring Physician: Richard Mancilla M.D. Performed By: Carleen Vivar RCS Physical Exam Const alert, oriented x3 and no apparent distress HEENT normocephalic, head/scalp atraumatic, hearing grossly normal bilaterally and moist oral mucous membranes Head and Scalp: normocephalic Mouth: oral and palatal mucosa normal Eyes PERRL, EOMs intact bilaterally and conjunctivae normal Neck no lymphadenopathy, supple and no JVD Resp normal respiratory effort, no retractions, no use of accessory muscles and clear to auscultation bilaterally Cardio regular rate, regular rhythm, S1 normal heart sound, S2 normal heart sound and no murmurs GI normal to inspection, nondistended, normoactive bowel sounds, soft to palpation and non-tender Extremity normal to inspection, full ROM and no clubbing, cyanosis or edema Neuro oriented x3, CN's II-XII intact bilaterally, moves all extremities and no focal motor deficits Sensorium / Orientation: awake and alert Motor Exam: strength 5/5 throughout Psych affect normal Assessment & Plan Assessment/Plan (1) Hypotension: (2) Neutropenia: PLAN: Plan #Shock, presumed septic shock * now off levophed * on IV vancomycin and zosyn * continue gentle hydration with IVF * Blood and urine cultures show no growth * enteric panel for diarrhea negative. * critical care on board * * #Diffuse large B cell lymphoma * follows with Dr Valles * currently undergoing chemotherapy; has completed 5 sessions of chemotherapy * #Pancytopenia * started on sc granix yesterday * wbc is 0.5 today, and hb is 7.7; platelets are down to 110 today * continue granix and monitor #Nonstemi * troponin was 632, trended downards to 481 * 2D echo showed EF of 55%, with no regional wall motion abnormalities, and normal LV size and systolic function * cardiology consulted * I do feel this was likely type 2 nonstemi due to ischemia as a result of shock requiring pressors * #Hypothyroidism: on synthroid #Hypertension:hold losartan due to hypotension DVT prophylaxis; lovenox Code status: full code * Charges/Coding Visit Charges Inpatient E&M: 90844 Subs Hosp L3
--- NOTE | 2022-08-10 13:48 | PN.CC_ITS ---
Assessment & Plan Assessment/Plan (1) Hypotension: PLAN: Possible sepsis, versus cardiogenic shock related to positive troponins and her GI bleed but now completely off pressors She has received the sepsis protocol and is on IV vancomycin and Zosyn. The patient's been hydrated with 4 L of saline for sepsis resuscitation. Other possibility is chemo related . (2) Elevated troponin: PLAN: Troponins are trending down Echo with no wall motion abnormalities (3) Neutropenia: PLAN: Supportive care, will defer to oncology whether Neupogen is needed. (4) Lactic acidosis: PLAN: Likely due to patient's hypotension, she was worked up for possible sepsis, is being followed for possible GI bleeding, cardiogenic shock, and await for her clinical situation to become clear as time goes on. So far data not pointing to cardiac or GI Chemo effect may be an issue Maintain MAP greater than 65 at all times Patient is not on metformin (5) Sinus tachycardia: PLAN: Likely secondary to underlying problems (6) Anemia: PLAN: Will obtain stool Hemoccult, follow H&H, She has a history of GI bleeding hold her anticoagulation for now. PPIs (7) Acute renal insufficiency: PLAN: Creatinine is 1.58, maintain good hydration, supportive care. (8) DLBCL (diffuse large B cell lymphoma): PLAN: Per oncology (9) Hypokalemia: PLAN: She was supplemented both IV and p.o., 20 mill equivalents of potassium twice daily p.o. today. PLAN: Plan She also has a history of GI bleeding, will treat with PPI aggressively, and involve GI if there is any evidence of objective GI bleeding. Subjective Subjective Patient seen and examined. She had no active complaitns today. She was off levophed drip, and BP was in the 90s systolic, with MAP >65. Review of systems is otherwise negative. Objective Data Objective Data Vital Signs: Vital Signs Temp Pulse Resp BP Pulse Ox O2 Del Method O2 Flow Rate 37.0 C 96 17 113/66 99 Room Air 3 08/10/22 13:00 08/10/22 13:00 08/10/22 13:00 08/10/22 13:00 08/10/22 13:00 08/10/22 13:00 08/08/22 14:32 Oxygen Flow Rate (L/min) 3 Oxygen Delivery Method Room Air Weight: 59.5 kg Body Mass Index (BMI) 23.9 Intake & Output: Intake and Output for Last 24 Hours 08/08/22 08/09/22 08/10/22 23:59 23:59 23:59 Intake Total 6061.06 / 6161.06 2844.24 / 2863.04 691.60 / 691.60 Output Total 975 / 975 2550 / 2550 1550 / 1550 Balance 5086.06 / 5186.06 294.24 / 313.04 -858.40 / -858.40 Lab / Micro Data Result Diagrams: 08/10/22 04:35 08/10/22 04:35 Labs: Laboratory Results - last 24 hr 08/09/22 14:40: Hgb 8.1 L, Hct 25.0 L 08/09/22 14:40: Lactic Acid 1.5 08/09/22 14:40: Troponin I High Sens 481 H* 08/09/22 18:40: Potassium 3.7, Calcium 7.1 L, Magnesium 1.3 L 08/10/22 04:35: Sodium 134 L, Potassium 3.6, Chloride 106, Carbon Dioxide 20.0 L , Anion Gap 8, BUN 16, Creatinine 1.01, Estim Creat Clear Calc 39.89, Est GFR (M DRD) Af Amer 71, Est GFR (MDRD) Non-Af 58 L, BUN/Creatinine Ratio 15.8, Glucose 195 H, Calcium 8.0 L 08/10/22 04:35: WBC 0.5 L*, RBC 2.39 L, Hgb 7.7 L, Hct 23.4 L, MCV 97.9, MCH 32.2 H, MCHC 32.9, RDW Std Deviation 59.0 H, RDW Coeff of Real 16.3 H, Plt Count 110 L, MPV 9.7, Immature Gran % (Auto) 0.000, Neut % (Auto) 4.1 L, Lymph % (Auto) 24.5, [place] % (Auto) 71.4 H, Eos % (Auto) 0.0, Baso % (Auto) 0.0, Absolute Neuts (auto) 0.0 L, Absolute Lymphs (auto) 0.12 L, Nucleated RBC % 0, Differential Comment SCANNED, Diff Path Review December08/10/22 11:45: Vancomycin Trough 8.7 Micro: Microbiology 08/08/22 21:50 Urine, Clean Catch Urine Culture - Preliminary Culture exhibits no growth. 08/08/22 11:15 Blood Culture (Wb) - Anticubital Left Blood Culture - Preliminary No growth in 48 hours. 08/08/22 12:15 Blood Culture (Wb) - Right Forearm Blood Culture - Preliminary No growth in 48 hours. 08/09/22 12:16 Stool Enteric Bacteriology - Final 08/09/22 17:30 Stool C. difficile DNA Amplification - Final 08/09/22 12:16 Stool Stool Occult Blood (YAMILA) - Final 08/08/22 11:20 Nasal Secretion SARS-CoV-2 & FLU Antigen (Rapid) - Final Radiography Diagnostic Testing: Radiology Impression Echocardiogram 08/09/22 12:48 Interpretation Summary Normal LV size. Left ventricular systolic function is normal. The estimated ejection fraction is 55 %. Mild (1+) tricuspid valve insufficiency. Pulmonary artery systolic pressure is 24 mmHg. Contrast injection was performed. Ordering Physician: Jarrod Umanzor Referring Physician: Richard Mancilla M.D. Performed By: Carleen Vivar RCS Physical Exam Narrative Well-developed, pleasant, pale appearing woman with complete alopecia post chemo, appears chronically ill and tired. HEENT: Extraoculars are intact, no mucositis, no thrush, no discharge Neck is supple Lungs are clear bilaterally, there is a port in content condition in the right upper chest. Heart normal S1-S2 no murmurs rubs or gallops Abdomen is soft, nontender, Extremities have no clubbing cyanosis or edema, Skin: Very pale, cool to the touch. No diaphoresis Neuro: Alert and oriented x3, diffusely weak, grossly nonfocal. Cooperative and pleasant. Charges/Coding Addendum Addendum: Critical care time spent = 32 minutes Billing code = [id number]
--- NOTE | 2022-08-10 14:01 | PCM.RX.CS ---
Consult Pharmacy has been consulted to manage selected antiobiotic: Vancomycin Type of Consult: Follow-up Prior Doses of Antibiotics Received/Current Regimen: currently on 750mg IV q24h Labs: Sodium 134 mmol/L (136-145) L 08/10/22 04:35 Potassium 3.6 mmol/L (3.5-5.1) 08/10/22 04:35 Chloride 106 mmol/L (98-107) 08/10/22 04:35 Carbon Dioxide 20.0 mmol/L (21.0-32.0) L 08/10/22 04:35 Anion Gap 8 (5-15) 08/10/22 04:35 BUN 16 mg/dL (7-18) 08/10/22 04:35 Creatinine 1.01 mg/dL (0.55-1.02) 08/10/22 04:35 Est GFR (MDRD) Af Amer 71 mL/min (>60) 08/10/22 04:35 Est GFR (MDRD) Non-Af 58 mL/min (>60) L 08/10/22 04:35 BUN/Creatinine Ratio 15.8 RATIO (10-20) 08/10/22 04:35 Glucose 195 mg/dL (74-106) H 08/10/22 04:35 Vancomycin Trough 8.7 ug/mL (5.0-15.0) 08/10/22 11:45 Microbiology: Microbiology 08/08/22 21:50 Urine, Clean Catch Urine Culture - Preliminary Culture exhibits no growth. 08/08/22 11:15 Blood Culture (Wb) - Anticubital Left Blood Culture - Preliminary No growth in 48 hours. 08/08/22 12:15 Blood Culture (Wb) - Right Forearm Blood Culture - Preliminary No growth in 48 hours. 08/09/22 12:16 Stool Enteric Bacteriology - Final 08/09/22 17:30 Stool C. difficile DNA Amplification - Final 08/09/22 12:16 Stool Stool Occult Blood (YAMILA) - Final 08/08/22 11:20 Nasal Secretion SARS-CoV-2 & FLU Antigen (Rapid) - Final Weight used for dosin.5 kg Estimated Creatinine Clearance: 39.9ml/min Goal Trough: 15-20 mcg/mL Pharmacy Plan for Drug Dosing: The vanc trough drawn at 11:45 today (approx 23.5 hours after the last dose) was 8.7. This is well below goal so will change next dose to 750mg IV q12h. Repeat another trough before the 4th dose. Pharmacy Service will continue to monitor and adjust dosing as required. Follow-Up Labs: Trough Vancomycin Labs to be done on [date and time ordered]: 08/12/22 12:30
--- NOTE | 2022-08-10 15:52 | PCM.CONS.C ---
Assessment & Plan Assessment/Plan (1) Hypotension: (2) Neutropenia: (3) Lactic acidosis: (4) Anemia: (5) Acute renal insufficiency: (6) Elevated troponin: PLAN: Plan 66-year-old patient who was admitted through the ER with generalized weakness and hypotension in the ER her blood pressure was in the range of around 70 mmHg/systolic blood pressure Given some IV fluids Patient with a history of DLBCL diffuse large B cell lymphoma Cardiac consultation requested for evaluation of elevated high sensitive troponins There is no prior cardiac history And there is no symptoms of chest pain reported. Cardiac exam essentially normal Cardiac care plan recommendations; 1. Review of the echocardiogram showed LV function is preserved 2. Patient is off inotropic support Elevated high sensitive troponins due to type II WA with demand myocardial ischemia due to her current presentation with hypotension and sepsis From cardiac standpoint recommendation would be to consider evaluation as an out patient. With myocardial perfusion study No further cardiac follow-up will be available if further cardiac need arise. Thank you for the consultation HPI Consult Data Date of Consult: 08/10/22 Attending Care Provider: 66-year-old patient with sepsis improving on the current treatment with antibiotic vancomycin and Zosyn. This patient seen and evaluated today along with the nursing staff today with no symptoms reported patient is off inotropic support with Levophed. Cardiac consultation requested to evaluate for elevated high sensitive troponin. HPI Narrative Reason for Consultation: Cardiac evaluation for limited high sensitive troponin I/type II WA . HPI Narrative: DEVIN BALLESTEROS, is a 66 F who presents [facility] Medical History (Updated 08/09/22 @ 12:[address] Jarrod Umanzor MD) Abdominal pain Abnormal weight loss Anemia Anxiety Arthritis Asthma Back pain Blackout Cancer Carotid artery stenosis Chronic cough CINV (chemotherapy-induced nausea and vomiting) Constipation Depression Diffuse large b-cell lymphoma, intrapelvic lymph nodes Dizziness DLBCL (diffuse large B cell lymphoma) Elevated troponin Encounter for chemotherapy management Encounter for education Essential (primary) hypertension Excessive bleeding Gastric reflux GERD (gastroesophageal reflux disease) High cholesterol History of echocardiogram History of edema History of GI bleed History of retained foreign body fully removed History of steroid therapy Hypertension Hypothyroidism Injury of head and neck Leg cramps Lower abdominal pain, unspecified Mucositis (ulcerative) due to antineoplastic therapy Post-menopausal Severe protein-calorie malnutrition Shortness of breath on exertion Smoker Smoker Thyroid disease Tooth pain Wears glasses Home Medications losartan 100 mg tablet 100 mg PO DAILY blood pressure 01/28/22 [History Last Taken 08/07/22] clopidogrel 75 mg tablet 75 mg PO DAILY anti platelet 02/08/22 [History Last Taken 08/07/22] fluticasone fur. 100 mcg-umeclid 62.5 mcg-vilant 25 mcg inhalat.powder (Trelegy Ellipta) 1 inh inhalation DAILY 03/11/22 [History Last Taken 08/06/22] levothyroxine 25 mcg tablet (Euthyrox) 25 mcg PO DAILY 03/11/22 [History Last Taken 08/07/22] lidocaine-prilocaine 2.5 %-2.5 % topical cream 1 applic topical ONCE PRN port access 30 days #30 grams 03/13/22 [Rx Last Taken Unknown] ondansetron 8 mg disintegrating tablet 8 mg PO Q8H PRN nausea and vomiting #30 tabs 03/13/22 [Rx Last Taken Unknown] docusate sodium 100 mg capsule (Colace) 100 mg PO DAILY 04/22/22 [History Last Taken Unknown] pantoprazole 40 mg tablet,delayed release (Protonix) 40 mg PO BID #60 tabs 05/28/22 [Rx Last Taken 08/07/22] MAGIC MOUTH WASH (BMX) 180 mL suspension 5 ml PO Q4H PRN mouth pain #180 mL 06/03/22 [Rx Last Taken Unknown] dexamethasone 4 mg tablet 4 mg PO DAILY #30 tabs 07/15/22 [Rx Last Taken 08/07/22] ferrous sulfate 325 mg (65 mg iron) tablet 325 mg PO BID 07/29/22 [History Last Taken 08/07/22] potassium chloride 20 mEq tablet,extended release 20 meq PO DAILY #14 tabs 07/29/22 [Rx Last Taken 08/07/22] Allergy/AdvReac Type Severity Reaction Status Date / Time No Known Allergies Allergy Verified 08/08/22 11:03 Family History Grandmother Breast cancer Hypertension Sister Cancer CERVICAL Sister Cancer UTERUS Brother Cancer ESOPHAGEAL Brother Cancer PROSTATE Mother Hypertension Diabetes Surgical History History of esophagogastroduodenoscopy (EGD) S/P cataract extraction Social History Smoking Status: Current every day smoker tobacco type: cigarettes substance use type: does not use ROS ROS Narrative Review of 14 systems unremarkable apart from the current presentation. Physical Exam Cardio Cardio Narrative: Cardiac rhythm is sinus rhythm Cardiovascular S1-S2 regular Chest exam clear to auscultation bilateral Risk Stratification Risk Stratification Applicable: No Objective Data Vital Signs: Vital Signs Temp Pulse Resp BP Pulse Ox O2 Del Method O2 Flow Rate 98.6 F 96 17 113/66 99 Room Air 3 08/10/22 13:00 08/10/22 13:00 08/10/22 13:00 08/10/22 13:00 08/10/22 13:00 08/10/22 13:00 08/08/22 14:32 Oxygen Flow Rate (L/min) 3 Oxygen Delivery Method Room Air Weight: 131 lb 2.801 oz Body Mass Index (BMI) 23.9 Intake & Output: Intake and Output for Last 24 Hours 08/08/22 08/09/22 08/10/22 23:59 23:59 23:59 Intake Total 6061.06 / 6161.06 2844.24 / 2863.04 956.60 / 956.60 Output Total 975 / 975 2550 / 2550 1550 / 1550 Balance 5086.06 / 5186.06 294.24 / 313.04 -593.40 / -593.40 Lab / Micro Data Result Diagrams: 08/10/22 04:35 08/10/22 04:35 Labs: Laboratory Results - last 24 hr 08/09/22 18:40: Potassium 3.7, Calcium 7.1 L, Magnesium 1.3 L 08/10/22 04:35: Sodium 134 L, Potassium 3.6, Chloride 106, Carbon Dioxide 20.0 L, Anion Gap 8, BUN 16, Creatinine 1.01, Estim Creat Clear Calc 39.89, Est GFR (MDRD) Af Amer 71, Est GFR (MDRD) Non-Af 58 L, BUN/Creatinine Ratio 15.8, Glucose 195 H, Calcium 8.0 L 08/10/22 04:35: WBC 0.5 L*, RBC 2.39 L, Hgb 7.7 L, Hct 23.4 L, MCV 97.9, MCH 32.2 H, MCHC 32.9, RDW Std Deviation 59.0 H, RDW Coeff of Real 16.3 H, Plt Count 110 L, MPV 9.7, Immature Gran % (Auto) 0.000, Neut % (Auto) 4.1 L, Lymph % (Auto) 24.5, [place] % (Auto) 71.4 H, Eos % (Auto) 0.0, Baso % (Auto) 0.0, Absolute Neuts (auto) 0.0 L, Absolute Lymphs (auto) 0.12 L, Nucleated RBC % 0, Differential Comment SCANNED, Diff Path Review December08/10/22 11:45: Vancomycin Trough 8.7 Micro: Microbiology 08/08/22 21:50 Urine, Clean Catch Urine Culture - Preliminary Culture exhibits no growth. 08/08/22 11:15 Blood Culture (Wb) - Anticubital Left Blood Culture - Preliminary No growth in 48 hours. 08/08/22 12:15 Blood Culture (Wb) - Right Forearm Blood Culture - Preliminary No growth in 48 hours. 08/09/22 12:16 Stool Enteric Bacteriology - Final 08/09/22 17:30 Stool C. difficile DNA Amplification - Final 08/09/22 12:16 Stool Stool Occult Blood (YAMILA) - Final Cardiology Labs/Tests 08/09/22 18:40: Potassium 3.7, Calcium 7.1 L, Magnesium 1.3 L 08/10/22 04:35: Sodium 134 L, Potassium 3.6, Chloride 106, Carbon Dioxide 20.0 L, Anion Gap 8, BUN 16, Creatinine 1.01, Est GFR (MDRD) Af Amer 71, Est GFR (MDRD) Non-Af 58 L, BUN/Creatinine Ratio 15.8, Glucose 195 H, Calcium 8.0 L 08/10/22 04:35: WBC 0.5 L*, RBC 2.39 L, Hgb 7.7 L, Hct 23.4 L, MCV 97.9, MCH 32.2 H, MCHC 32.9, Plt Count 110 L, MPV 9.7, Immature Gran % (Auto) 0.000, Neut % (Auto) 4.1 L, Lymph % (Auto) 24.5, [place] % (Auto) 71.4 H, Eos % (Auto) 0.0, Baso % (Auto) 0.0, Absolute Neuts (auto) 0.0 L, Nucleated RBC % 0 Rhythm: EKG: ECHO: Stress Test: Cardiac Cath: PCI: CT Surgery: Holter monitor: EPS: PPM: CXR: Chest CT Scan:
[2022-08-11] VITALS (17 sets, daily range): BP systolic 87–116; BP diastolic 58–78; PULSE 73–93; RESP 14–28; TEMP 36.6–37.1; O2SAT 96–100
[2022-08-11 05:22] LABS: Absolute Lymphocyte Count 0.14 X10^3/uL (0.83-4.51); Hematocrit 21.1 % (37-47); Lymphocyte # 0.14 X10^3/ul (0.83-4.51); Mean Corp Hgb Conc 33.2 g/dL (32-36); Mean Corpuscular Hgb 32.4 pg (27.0-32.0); Mean Corpuscular Volume 97.7 fL (81-99); Mean Platelet Vol. 9.8 fl (6.2-12.0); Monocyte% 71.4 % (0-10); NRBC Flagged by Analyzer 0 % (0-5); Neutrophil # 0.02 X10^3/uL (2.7-7.7); Neutrophil % 3.6 % (47-70); POSITIVE COUNT YES; POSITIVE DIFFERENTIAL YES; POSITIVE MORPHOLOGY YES; Platelet Count 65 K/mm3 (150-450); RBC Distribution Width CV 16.4 % (11.6-14.6); RBC Distribution Width SD 58.6 fl (35.1-43.9); Red Blood Count 2.16 M/mm3 (4.2-5.4)
[2022-08-11 05:26] LABS: Differential Indicated SCAN CRITERIA MET; White Blood Count 0.6 K/mm3 (4.4-11.0)
[2022-08-11 05:37] LABS: Anion Gap 6 (5-15); BUN 16 mg/dL (7-18); BUN/Creat Ratio 15.4 RATIO (10-20); Calcium,Total 8.2 mg/dL (8.5-10.1); Chloride 108 mmol/L (98-107); Creatinine, Serum 1.04 mg/dL (0.55-1.02); EST Glomerular Filtration Rate 56 mL/min (>60); Est Glom Filt Rate - Afr Amer 68 mL/min (>60); Estimated Creatinine Clearance 38.74 ml/min; Glucose 114 mg/dL (74-106); Potassium 4.3 mmol/L (3.5-5.1); Sodium Level 135 mmol/L (136-145)
[2022-08-11] MEDS: Levothyroxine 25 MCG TABLET PO (06:51)
[2022-08-11 08:33] LABS: Hematocrit 21.2 % (37-47); Hemoglobin 7.1 g/dL (12.0-15.0); POSITIVE COUNT YES
[2022-08-11] MEDS: Ferrous Sulfate 325 MG Tablet PO ×2 (09:00→17:22)
[2022-08-11] MEDS: dexAMETHasone 4 MG Tablet PO (09:00)
[2022-08-11] MEDS: Docusate Sodium 100 MG Capsule PO (09:00)
[2022-08-11] MEDS: Ipratropium/Albuterol Sulfate 3 ML AMPUL.NEB INHALATION ×3 (09:00→19:02)
[2022-08-11] MEDS: Potassium Chloride Oral Soln 20 MEQ/15 ML UDC PO ×2 (09:00→17:22)
[2022-08-11] MEDS: Pantoprazole Sodium 40 MG Tablet PO ×2 (09:00→21:28)
[2022-08-11] MEDS: Budesonide Respules 0.5 MG/2 ML AMPUL.NEB. INHALATION (09:00)
[2022-08-11] MEDS: TBO-FILGRASTIM 300 MCG/0.5 ML ML SC (09:01)
--- NOTE | 2022-08-11 09:50 | PN.HOSP_ITS ---
Subjective Subjective Patient seen and examined. She felt much better today and had no active complaints. She said she didnt want to eat much breakfast because she was concerned about weight gain. Review of systems is otherwise negative. Objective Data Objective Data Vital Signs: Vital Signs Temp Pulse Resp BP Pulse Ox O2 Del Method O2 Flow Rate 98.5 F 80 23 H 113/67 100 Room Air 3 08/11/22 09:00 08/11/22 09:00 08/11/22 09:00 08/11/22 09:00 08/11/22 09:00 08/11/22 09:00 08/08/22 14:32 Oxygen Flow Rate (L/min) 3 Oxygen Delivery Method Room Air Weight: 132 lb 11.492 oz Body Mass Index (BMI) 23.9 Intake & Output: Intake and Output for Last 24 Hours 08/09/22 08/10/22 08/11/22 23:59 23:59 23:59 Intake Total 2844.24 / 2863.04 1006.60 / 1256.60 665 / 665 Output Total 2550 / 2550 2350 / 3200 1350 / 1350 Balance 294.24 / 313.04 -1343.40 / -1943.40 -685 / -685 Lab / Micro Data Result Diagrams: 08/11/22 08:20 08/11/22 05:07 Labs: Laboratory Results - last 24 hr 08/10/22 11:45: Vancomycin Trough 8.7 08/11/22 05:07: Sodium 135 L, Potassium 4.3, Chloride 108 H, Carbon Dioxide 21.0, Anion Gap 6, BUN 16, Creatinine 1.04 H, Estim Creat Clear Calc 38.74, Est GFR (MDRD) Af Amer 68, Est GFR (MDRD) Non-Af 56 L, BUN/Creatinine Ratio 15.4, Glucose 114 H, Calcium 8.2 L 08/11/22 05:07: WBC 0.6 L*, RBC 2.16 L, Hgb 7.0 L, Hct 21.1 L, MCV 97.7, MCH 32.4 H, MCHC 33.2, RDW Std Deviation 58.6 H, RDW Coeff of Real 16.4 H, Plt Count 65 L, MPV 9.8, Immature Gran % (Auto) 0.000, Neut % (Auto) 3.6 L, Lymph % (Auto) 25.0, Richardson % (Auto) 71.4 H, Eos % (Auto) 0.0, Baso % (Auto) 0.0, Absolute Neuts (auto) 0.0 L, Absolute Lymphs (auto) 0.14 L, Nucleated RBC % 0 08/11/22 08:20: Hgb 7.1 L, Hct 21.2 L Micro: Microbiology 08/08/22 21:50 Urine, Clean Catch Urine Culture - Final Culture exhibits no growth. 08/08/22 11:15 Blood Culture (Wb) - Anticubital Left Blood Culture - Preliminary No growth in 48 hours. 08/08/22 12:15 Blood Culture (Wb) - Right Forearm Blood Culture - Preliminary No growth in 48 hours. 08/09/22 12:16 Stool Enteric Bacteriology - Final 08/09/22 17:30 Stool C. difficile DNA Amplification - Final 08/09/22 12:16 Stool Stool Occult Blood (YAMILA) - Final 08/08/22 11:20 Nasal Secretion SARS-CoV-2 & FLU Antigen (Rapid) - Final Physical Exam Const alert, oriented x3 and no apparent distress HEENT normocephalic, head/scalp atraumatic, hearing grossly normal bilaterally and moist oral mucous membranes Head and Scalp: normocephalic Mouth: oral and palatal mucosa normal Eyes PERRL, EOMs intact bilaterally and conjunctivae normal Neck no lymphadenopathy, supple and no JVD Resp normal respiratory effort, no retractions, no use of accessory muscles and clear to auscultation bilaterally Cardio regular rate, regular rhythm, S1 normal heart sound, S2 normal heart sound and no murmurs GI normal to inspection, nondistended, normoactive bowel sounds, soft to palpation and non-tender Extremity normal to inspection, full ROM and no clubbing, cyanosis or edema Neuro oriented x3, CN's II-XII intact bilaterally, moves all extremities and no focal motor deficits Sensorium / Orientation: awake and alert Motor Exam: strength 5/5 throughout Psych affect normal Assessment & Plan Assessment/Plan (1) Hypotension: (2) Neutropenia: PLAN: Plan #Shock, presumed septic shock * resolved. NOw off levophed * on IV vancomycin and zosyn * Blood and urine cultures show no growth * enteric panel for diarrhea negative. * critical care on board * * #Diffuse large B cell lymphoma * PET scan in January 2022 showed a gastric mass and right pelvis and sacrum with hypermetabolic activity * follows with Dr Valles * currently undergoing chemotherapy; has completed 5 sessions of chemotherapy; had last chemo session on 07/01/2022 * had EGD on 02/20/2022 which showed malignant tumor of the gastric fundus and body, with biopsy showing gastric lymphoma * #Pancytopenia * started on sc granix * wbc is only 0.6 todawy; hb has dropped to 7;on repeat, Hb was 7.1. Platelets are down to 65 * will continue granix * dc lovenox. * consult hematology; I discussed the pancytopenia with Dr Valles today on phone; per discussion, the pancytopenia may be due to delayed recovery from her last session of dialysis on 07/01/2022, or a spread of the disease. Hematology will see tomorrow * stool for occult blood negative. * transfuse if Hb <7 #Nonstemi * troponin was 632, trended downards to 481 * 2D echo showed EF of 55%, with no regional wall motion abnormalities, and norm al LV size and systolic function * cardiology evaluated patient and thinks this is due to type II ischemia from low blood pressure * will monitor * hold plavix due to pancytopenia #Hypothyroidism: on synthroid #Hypertension:hold losartan due to hypotension DVT prophylaxis; dc lovenox; SCDs Code status: full code * Charges/Coding Visit Charges Inpatient E&M: 22016 Subs Hosp L3
[2022-08-11 10:26] LABS: Differential Comment SCANNED
[2022-08-11 10:29] LABS: Platelet Estimate MKD DEC (ADEQ)
--- NOTE | 2022-08-11 11:19 | PCM.PN.INT ---
Assessment & Plan Assessment/Plan (1) Hypotension: PLAN: Possible sepsis, versus cardiogenic shock related to positive troponins and her GI bleed but now completely off pressors She has received the sepsis protocol on admission and is on IV vancomycin and Zosyn. The patient's been hydrated with 4 L of saline for sepsis resuscitation. Other possibility is chemo related No clear reason for hypotension at this time . (2) Elevated troponin: PLAN: Troponins are trending down Echo with no wall motion abnormalities Appreciate cardiology input (3) Neutropenia: PLAN: Supportive care, will defer to oncology whether Neupogen is needed. (4) Lactic acidosis: PLAN: Likely due to patient's hypotension, she was worked up for possible sepsis, is being followed for possible GI bleeding, cardiogenic shock, and await for her clinical situation to become clear as time goes on. So far data not pointing to cardiac or GI Chemo effect may be an issue Maintain MAP greater than 65 at all times Patient is not on metformin (5) Sinus tachycardia: PLAN: Likely secondary to underlying problems (6) Anemia: PLAN: Will obtain stool Hemoccult, follow H&H, She has a history of GI bleeding hold her anticoagulation for now. PPIs (7) Acute renal insufficiency: PLAN: Maintain good hydration, supportive care. (8) DLBCL (diffuse large B cell lymphoma): PLAN: Per oncology (9) Hypokalemia: PLAN: She was supplemented both IV and p.o., 20 mill equivalents of potassium twice daily p.o. today. PLAN: Plan She also has a history of GI bleeding, will treat with PPI aggressively, and involve GI if there is any evidence of objective GI bleeding. Subjective Subjective Patient seen and examined. She had no active complaitns today. She was off levophed drip, and BP was in the 90s systolic, with MAP >65. Review of systems is otherwise negative. Objective Data Objective Data Vital Signs: Vital Signs Temp Pulse Resp BP Pulse Ox O2 Del Method O2 Flow Rate 36.9 C 84 24 H 116/69 100 Room Air 3 08/11/22 10:00 08/11/22 10:00 08/11/22 10:00 08/11/22 10:00 08/11/22 10:00 08/11/22 10:00 08/08/22 14:32 Oxygen Flow Rate (L/min) 3 Oxygen Delivery Method Room Air Weight: 60.2 kg Body Mass Index (BMI) 23.9 Intake & Output: Intake and Output for Last 24 Hours 08/09/22 08/10/22 08/11/22 23:59 23:59 23:59 Intake Total 2844.24 / 2863.04 1006.60 / 1256.60 715 / 715 Output Total 2550 / 2550 2350 / 3200 1350 / 1350 Balance 294.24 / 313.04 -1343.40 / -1943.40 -635 / -635 Lab / Micro Data Result Diagrams: 08/11/22 08:20 08/11/22 05:07 Labs: Laboratory Results - last 24 hr 08/10/22 11:45: Vancomycin Trough 8.7 08/11/22 05:07: Sodium 135 L, Potassium 4.3, Chloride 108 H, Carbon Dioxide 21.0, Anion Gap 6, BUN 16, Creatinine 1.04 H, Estim Creat Clear Calc 38.74, Est GFR (MDRD) Af Amer 68, Est GFR (MDRD) Non-Af 56 L, BUN/Creatinine Ratio 15.4, Glucose 114 H, Calcium 8.2 L 08/11/22 05:07: WBC 0.6 L*, RBC 2.16 L, Hgb 7.0 L, Hct 21.1 L, MCV 97.7, MCH 32.4 H, MCHC 33.2, RDW Std Deviation 58.6 H, RDW Coeff of Real 16.4 H, Plt Count 65 L, MPV 9.8, Immature Gran % (Auto) 0.000, Neut % (Auto) 3.6 L, Lymph % (Auto) 25.0, Nicholas % (Auto) 71.4 H, Eos % (Auto) 0.0, Baso % (Auto) 0.0, Absolute Neuts (auto) 0.0 L, Absolute Lymphs (auto) 0.14 L, Nucleated RBC % 0, Differential Comment SCANNED, Diff Path Review December peg Platelet Estimate MKD DEC 08/11/22 08:20: Hgb 7.1 L, Hct 21.2 L Micro: Microbiology 08/08/22 21:50 Urine, Clean Catch Urine Culture - Final Culture exhibits no growth. 08/08/22 11:15 Blood Culture (Wb) - Anticubital Left Blood Culture - Preliminary No growth in 48 hours. 08/08/22 12:15 Blood Culture (Wb) - Right Forearm Blood Culture - Preliminary No growth in 48 hours. 08/09/22 12:16 Stool Enteric Bacteriology - Final 08/09/22 17:30 Stool C. difficile DNA Amplification - Final 08/09/22 12:16 Stool Stool Occult Blood (YAMILA) - Final 08/08/22 11:20 Nasal Secretion SARS-CoV-2 & FLU Antigen (Rapid) - Final Physical Exam Narrative Well-developed, pleasant, pale appearing woman with complete alopecia post chemo, appears chronically ill and tired. HEENT: Extraoculars are intact, no mucositis, no thrush, no discharge Neck is supple Lungs are clear bilaterally, there is a port in content condition in the right upper chest. Heart normal S1-S2 no murmurs rubs or gallops Abdomen is soft, nontender, Extremities have no clubbing cyanosis or edema, Skin: Very pale, cool to the touch. No diaphoresis Neuro: Alert and oriented x3, diffusely weak, grossly nonfocal. Cooperative and pleasant. Charges/Coding Visit Charges Inpatient E&M: 45391 Init Hosp L3
[2022-08-12] VITALS (19 sets, daily range): BP systolic 81–120; BP diastolic 51–75; PULSE 59–161; RESP 16–27; TEMP 36.1–36.9; O2SAT 94–100
[2022-08-12 03:39] LABS: Absolute Lymphocyte Count 0.25 X10^3/uL (0.83-4.51); Absolute Neutrophil Count 0.1 X10^3/uL (2.0-7.7); Hematocrit 21.7 % (37-47); Lymphocyte # 0.25 X10^3/ul (0.83-4.51); Lymphocyte % 27.8 % (19-41); Mean Corp Hgb Conc 32.3 g/dL (32-36); Mean Corpuscular Volume 99.1 fL (81-99); Mean Platelet Vol. 11.8 fl (6.2-12.0); Monocyte# 0.53 X10^3/uL; Monocyte% 58.9 % (0-10); NRBC Flagged by Analyzer 0 % (0-5); Neutrophil # 0.12 X10^3/uL (2.7-7.7); Neutrophil % 13.3 % (47-70); POSITIVE COUNT YES; POSITIVE DIFFERENTIAL YES; POSITIVE MORPHOLOGY YES; Platelet Count 62 K/mm3 (150-450); RBC Distribution Width CV 16.9 % (11.6-14.6); RBC Distribution Width SD 61.8 fl (35.1-43.9); Red Blood Count 2.19 M/mm3 (4.2-5.4)
[2022-08-12 03:47] LABS: Differential Indicated SCAN CRITERIA MET; White Blood Count 0.9 K/mm3 (4.4-11.0)
[2022-08-12 03:54] LABS: Anion Gap 5 (5-15); BUN 19 mg/dL (7-18); BUN/Creat Ratio 20.7 RATIO (10-20); Calcium,Total 8.1 mg/dL (8.5-10.1); Chloride 108 mmol/L (98-107); Creatinine, Serum 0.92 mg/dL (0.55-1.02); EST Glomerular Filtration Rate 65 mL/min (>60); Est Glom Filt Rate - Afr Amer 79 mL/min (>60); Estimated Creatinine Clearance 43.79 ml/min; Glucose 122 mg/dL (74-106); Potassium 4.4 mmol/L (3.5-5.1); Sodium Level 136 mmol/L (136-145)
[2022-08-12 04:05] LABS: Anisocytosis 1+; Platelet Estimate MOD DEC (ADEQ)
[2022-08-12] MEDS: 0.9% Saline Lock 10 ML Syringe IV ×2 (05:23→20:28)
[2022-08-12] MEDS: Levothyroxine 25 MCG TABLET PO (05:23)
--- NOTE | 2022-08-12 07:37 | PN.HOSP_ITS ---
Subjective Subjective Follow-up on probable septic shock/pancytopenia/type II non-STEMI: Patient was seen and examined. She denied any fever or chills or abdominal pain. She has had 1 loose stool today. Patient complained of difficulty swallowing her potassium supplementation. Objective Data Objective Data Vital Signs: Vital Signs Temp Pulse Resp BP Pulse Ox O2 Del Method O2 Flow Rate 98.5 F 98 20 H 115/71 96 Room Air 3 08/12/22 03:40 08/12/22 03:40 08/12/22 03:40 08/12/22 03:40 08/12/22 03:40 08/12/22 03:40 08/08/22 14:32 Oxygen Flow Rate (L/min) 3 Oxygen Delivery Method Room Air Weight: 61 kg Body Mass Index (BMI) 23.9 Intake & Output: Intake and Output for Last 24 Hours 08/10/22 08/11/22 08/12/22 23:59 23:59 23:59 Intake Total 1006.60 / 1256.60 1989 / 1989 820.5 / 820.5 Output Total 2350 / 3200 3900 / 3900 1000 / 1000 Balance -1343.40 / -1943.40 -1910 / -1910 -179.5 / -179.5 Lab / Micro Data Result Diagrams: 08/12/22 03:29 08/12/22 03:29 Labs: Laboratory Results - last 24 hr 08/11/22 05:07: Differential Comment SCANNED, Diff Path Review December, Platelet Estimate MKD 08/11/22 08:20: Hgb 7.1 L, Hct 21.2 L 08/12/22 03:29: Sodium 136, Potassium 4.4, Chloride 108 H, Carbon Dioxide 23.0, Anion Gap 5, BUN 19 H, Creatinine 0.92, Estim Creat Clear Calc 43.79, Est GFR (MDRD) Af Amer 79, Est GFR (MDRD) Non-Af 65, BUN/Creatinine Ratio 20.7 H, Glucose 122 H, Calcium 8.1 L 08/12/22 03:29: WBC 0.9 L*, RBC 2.19 L, Hgb 7.0 L, Hct 21.7 L, MCV 99.1 H, MCH 32.0, MCHC 32.3, RDW Std Deviation 61.8 H, RDW Coeff of Real 16.9 H, Plt Count 62 L, MPV 11.8, Immature Gran % (Auto) 0.000, Neut % (Auto) 13.3 L, Lymph % (Auto) 27.8, Nelson % (Auto) 58.9 H, Eos % (Auto) 0.0, Baso % (Auto) 0.0, Absolute Neuts (auto) 0.1 L, Absolute Lymphs (auto) 0.25 L, Nucleated RBC % 0, Diff Path Review May foll, Platelet Estimate MOD DEC, Anisocytosis 1+ Micro: Microbiology 08/08/22 21:50 Urine, Clean Catch Urine Culture - Final Culture exhibits no growth. 08/08/22 11:15 Blood Culture (Wb) - Anticubital Left Blood Culture - Preliminary No growth in 48 hours. 08/08/22 12:15 Blood Culture (Wb) - Right Forearm Blood Culture - Preliminary No growth in 48 hours. 08/09/22 12:16 Stool Enteric Bacteriology - Final 08/09/22 17:30 Stool C. difficile DNA Amplification - Final 08/09/22 12:16 Stool Stool Occult Blood (YAMILA) - Final 08/08/22 11:20 Nasal Secretion SARS-CoV-2 & FLU Antigen (Rapid) - Final Physical Exam Narrative Physical exam: General: Alert, oriented x3, cooperative, appears frail HEENT: Atraumatic Oral: Moist Mucosa Neck: Supple Lungs: Diminished to auscultation Cardiovascular: HS I+II, regular, no murmurs Abdomen: Bowel Sounds Present, Soft, Non Tender Extremities: No edema Skin: No rashes, No breakdown Neurological: Grossly intact Psych/Mental Status: Appropriate Assessment & Plan Assessment/Plan (1) Hypotension: (2) Neutropenia: PLAN: Plan 1. Shock, unclear etiology, resolved Probably hypovolemic/dehydration versus septic as patient presented with syncope/tachycardia in the setting of recent chemotherapy Blood and urine cultures were negative Stool for enteric panel/C. difficile negative Blood pressure meds have been held Remains on IV vancomycin and Zosyn; We will discontinue vancomycin and keep on IV Zosyn for now 2. Pancytopenia, persistent, Continue IV Zosyn, Granix, oral iron Continue with neutropenic precautions Trend labs in am 3. Diffuse large B cell lymphoma of the stomach, right pelvis and sacrum, On chemotherapy, follows with oncology in the outpatient Continue on oral dexamethasone for anorexia 4. Type II NSTEMI, EKG shows no acute ST-T changes, admitting troponin was 632-->432 2D echo shows EF of 55%, mild tricuspid valve insufficiency Cardiology consulted; will need to follow-up in the outpatient. 5. Hypothyroidism, continue on synthroid 6. DVT PPx- SCDs Charges/Coding Visit Charges Inpatient E&M: 89007 [facility] Hosp L3
[2022-08-12] MEDS: Budesonide Respules 0.5 MG/2 ML AMPUL.NEB. INHALATION (07:40)
[2022-08-12] MEDS: Ipratropium/Albuterol Sulfate 3 ML AMPUL.NEB INHALATION (07:40)
--- NOTE | 2022-08-12 09:51 | PCM.PN.INT ---
Assessment & Plan Assessment/Plan (1) Hypotension: PLAN: Patient has been off of pressors for over 24 hours and tolerating well. Patient likely could have vancomycin discontinued. We will continue Zosyn until improvement in ANC. Given hemodynamic stability for over 24 hours, will sign off from a critical care perspective. (2) Elevated troponin: PLAN: Troponins are trending down Echo with no wall motion abnormalities Appreciate cardiology input (3) Neutropenia: PLAN: Discussed with oncology. Anticipate growth factor in the future. (4) Lactic acidosis: PLAN: Resolved. (5) Sinus tachycardia: PLAN: Resolved. Likely secondary to underlying problems (6) Anemia: PLAN: Blood counts have been stable. No indication for transfusion at this time. (7) Acute renal insufficiency: PLAN: Improved. Maintain good hydration, supportive care. (8) DLBCL (diffuse large B cell lymphoma): PLAN: Per oncology (9) Hypokalemia: PLAN: She was supplemented both IV and p.o., 20 mill equivalents of potassium twice daily p.o. today. Subjective Subjective Patient did well overnight. No acute issues were reported. Patient subjectively feels slightly improved compared to previous. Patient has been tolerating room air. No fluid boluses have been required. Did discuss with oncology and the plan is to continue antibiotics until ANC is greater than the thousand and then long-acting growth factor will be administered. Objective Data Objective Data Vital Signs: Vital Signs Temp Pulse Resp BP Pulse Ox O2 Del Method O2 Flow Rate 36.9 C 101 H 20 H 115/71 94 Room Air 3 08/12/22 03:40 08/12/22 07:40 08/12/22 07:40 08/12/22 03:40 08/12/22 07:40 08/12/22 07:40 08/08/22 14:32 Oxygen Flow Rate (L/min) 3 Oxygen Delivery Method Room Air Weight: 61 kg Body Mass Index (BMI) 23.9 Intake & Output: Intake and Output for Last 24 Hours 08/10/22 08/11/22 08/12/22 23:59 23:59 23:59 Intake Total 1006.60 / 1256.60 1989 870.5 / 870.5 Output Total 2350 / 3200 3900 / 3900 1000 / 1000 Balance -1343.40 / -1943.40 -1910 / -1910 -129.5 / -129.5 Lab / Micro Data Attestation: I reviewed the patient's lab results. Result Diagrams: 08/12/22 03:29 08/12/22 03:29 Labs: Laboratory Results - last 24 hr 08/11/22 05:07: Differential Comment SCANNED, Diff Path Review May foll, Platelet Estimate MKD DEC 08/12/22 03:29: Sodium 136, Potassium 4.4, Chloride 108 H, Carbon Dioxide 23.0, Anion Gap 5, BUN 19 H, Creatinine 0.92, Estim Creat Clear Calc 43.79, Est GFR (MDRD) Af Amer 79, Est GFR (MDRD) Non-Af 65, BUN/Creatinine Ratio 20.7 H, Glucose 122 H, Calcium 8.1 L 08/12/22 03:29: WBC 0.9 L*, RBC 2.19 L, Hgb 7.0 L, Hct 21.7 L, MCV 99.1 H, MCH 32.0, MCHC 32.3, RDW Std Deviation 61.8 H, RDW Coeff of Real 16.9 H, Plt Count 62 L, MPV 11.8, Immature Gran % (Auto) 0.000, Neut % (Auto) 13.3 L, Lymph % (Auto) 27.8, Jackson % (Auto) 58.9 H, Eos % (Auto) 0.0, Baso % (Auto) 0.0, Absolute Neuts (auto) 0.1 L, Absolute Lymphs (auto) 0.25 L, Nucleated RBC % 0, Diff Path Review December foll, Platelet Estimate MOD DEC, Anisocytosis 1+ Micro: Microbiology 08/08/22 21:50 Urine, Clean Catch Urine Culture - Final Culture exhibits no growth. 08/08/22 11:15 Blood Culture (Wb) - Anticubital Left Blood Culture - Preliminary No growth in 48 hours. 08/08/22 12:15 Blood Culture (Wb) - Right Forearm Blood Culture - Preliminary No growth in 48 hours. 08/09/22 12:16 Stool Enteric Bacteriology - Final 08/09/22 17:30 Stool C. difficile DNA Amplification - Final 08/09/22 12:16 Stool Stool Occult Blood (YAMILA) - Final 08/08/22 11:20 Nasal Secretion SARS-CoV-2 & FLU Antigen (Rapid) - Final Physical Exam Const alert, oriented x3 and no apparent distress HEENT normocephalic, head/scalp atraumatic, hearing grossly normal bilaterally and moist oral mucous membranes HEENT Narrative: Alopecia noted. Head and Scalp: normocephalic Mouth: oral and palatal mucosa normal Eyes PERRL, EOMs intact bilaterally and conjunctivae normal Neck no lymphadenopathy, supple and no JVD Resp normal respiratory effort, no retractions, no use of accessory muscles and clear to auscultation bilaterally Cardio regular rate, regular rhythm, S1 normal heart sound, S2 normal heart sound, no murmurs, no rub and no gallops GI normal to inspection, nondistended, normoactive bowel sounds, soft to palpation and non-tender Extremity normal to inspection, full ROM and no clubbing, cyanosis or edema Neuro oriented x3, CN's II-XII intact bilaterally, moves all extremities and no focal motor deficits Sensorium / Orientation: awake and alert Psych affect normal Charges/Coding Visit Charges Inpatient E&M: 02060 Subs Hosp L2
[2022-08-12 10:03] LABS: Pathologist Review Reviewed
[2022-08-12 10:09] LABS: Pathologist Review Reviewed
[2022-08-12] MEDS: dexAMETHasone 4 MG Tablet PO (10:17)
[2022-08-12] MEDS: Ferrous Sulfate 325 MG Tablet PO ×2 (10:17→16:25)
[2022-08-12] MEDS: TBO-FILGRASTIM 300 MCG/0.5 ML ML SC (10:17)
[2022-08-12] MEDS: Docusate Sodium 100 MG Capsule PO (10:17)
[2022-08-12] MEDS: Pantoprazole Sodium 40 MG Tablet PO ×2 (10:17→21:53)
[2022-08-12] MEDS: Acetaminophen 325 MG Tablet 650 MG PO (10:18)
--- NOTE | 2022-08-12 12:50 | CASEMGMT ---
TRISTAN JONES NOTE: Carmen @ [facility] aware pt is not medically ready for discharge today and to f/u with TRISTAN JONES tomorrow for updates. Perez ACEVES RN CM
[2022-08-12 13:45] LABS: Pathologist Review Reviewed
[2022-08-12 13:45] LABS: Pathologist Review Reviewed
[2022-08-12 13:55] LABS: Pathologist Review Reviewed
[2022-08-12 14:27] LABS: AST(SGOT) 5 U/L (15-37); Alanine Aminotransfer ALT/SGPT 17 U/L (13-56); Alkaline Phosphatase 34 U/L (45-117); Globulin 3.3 g/dL (2.2-4.2); Magnesium 1.7 mg/dL (1.6-2.6); Protein, Total 5.3 g/dL (6.4-8.2)
--- NOTE | 2022-08-12 14:28 | ONC.CONSULT ---
Assessment & Plan Assessment/Plan (1) Pancytopenia due to chemotherapy: Status: Acute Code(s): D61.810 - Antineoplastic chemotherapy induced pancytopenia Plan: To continue GCSF for Neutropenia, supportive PRBC transfusion for Hgb <7, Platelet transfusion for PLT<15K. To continue GCSF till ANC is greater than 1000K. Will not follow further on this admission. To call if new problems arise. 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 To do observation HPI Consult Data Date of Service:: 08/12/22 PCP / Referring Provider: Dr. Richard Mancilla MD Attending: Dr. Angelique Boston MD Chief Complaint Chief Complaint: Asked to see Pt for Pancytopenia. History of Present Illness History of Present Illness: 66-year-old woman was diagnosed with gastric lymphoma stage IV, diffuse large B-cell type received chemotherapy R-CHOP x6 cycles from March 18, 2022 to July 01, 2022 with longer acting growth factor support. PET/CT scan after the second cycle showed complete response. She came to the ER with general weakness and was found to have neutropenia, anemia, thrombocytopenia and hypotension. She was started on broad-spectrum antibiotics with short-acting growth factor. She was she was seen on the aparicio this morning, feeling much better. Advanced Directives Power of [facility] Magistrate: No Living Will: No PFSH Medical History (Updated 08/12/22 @ 14:[address] Golden Valles MD) Abdominal pain Abnormal weight loss Anemia Anxiety Arthritis Asthma Back pain Blackout Cancer Carotid artery stenosis Chronic cough CINV (chemotherapy-induced nausea and vomiting) Constipation Depression Diffuse large b-cell lymphoma, intrapelvic lymph nodes Dizziness DLBCL (diffuse large B cell lymphoma) Elevated troponin Encounter for chemotherapy management Encounter for education Essential (primary) hypertension Excessive bleeding Gastric reflux GERD (gastroesophageal reflux disease) High cholesterol History of echocardiogram History of edema History of GI bleed History of retained foreign body fully removed History of steroid therapy Hypertension Hypothyroidism Injury of head and neck Leg cramps Lower abdominal pain, unspecified Mucositis (ulcerative) due to antineoplastic therapy Post-menopausal Severe protein-calorie malnutrition Shortness of breath on exertion Smoker Smoker Thyroid disease Tooth pain Wears glasses Home Medications losartan 100 mg tablet 100 mg PO DAILY blood pressure 01/28/22 [History Last Taken 08/07/22] clopidogrel 75 mg tablet 75 mg PO DAILY anti platelet 02/08/22 [History Last Taken 08/07/22] fluticasone fur. 100 mcg-umeclid 62.5 mcg-vilant 25 mcg inhalat.powder (Trelegy Ellipta) 1 inh inhalation DAILY 03/11/22 [History Last Taken 08/06/22] levothyroxine 25 mcg tablet (Euthyrox) 25 mcg PO DAILY 03/11/22 [History Last Taken 08/07/22] lidocaine-prilocaine 2.5 %-2.5 % topical cream 1 applic topical ONCE PRN port access 30 days #30 grams 03/13/22 [Rx Last Taken Unknown] ondansetron 8 mg disintegrating tablet 8 mg PO Q8H PRN nausea and vomiting #30 tabs 03/13/22 [Rx Last Taken Unknown] docusate sodium 100 mg capsule (Colace) 100 mg PO DAILY 04/22/22 [History Last Taken Unknown] pantoprazole 40 mg tablet,delayed release (Protonix) 40 mg PO BID #60 tabs 05/28/22 [Rx Last Taken 08/07/22] MAGIC MOUTH WASH (BMX) 180 mL suspension 5 ml PO Q4H PRN mouth pain #180 mL 06/03/22 [Rx Last Taken Unknown] dexamethasone 4 mg tablet 4 mg PO DAILY #30 tabs 07/15/22 [Rx Last Taken 08/07/22] ferrous sulfate 325 mg (65 mg iron) tablet 325 mg PO BID 07/29/22 [History Last Taken 08/07/22] potassium chloride 20 mEq tablet,extended release 20 meq PO DAILY #14 tabs 07/29/22 [Rx Last Taken 08/07/22] Allergy/AdvReac Type Severity Reaction Status Date / Time No Known Allergies Allergy Verified 08/08/22 11:03 Family History Grandmother Breast cancer Hypertension Sister Cancer CERVICAL Sister Cancer UTERUS Brother Cancer ESOPHAGEAL Brother Cancer PROSTATE Mother Hypertension Diabetes Surgical History History of esophagogastroduodenoscopy (EGD) S/P cataract extraction Social History Smoking Status: Current every day smoker tobacco type: cigarettes substance use type: does not use Physical Exam Const alert, oriented x3 and no apparent distress HEENT normocephalic, head/scalp atraumatic, hearing grossly normal bilaterally and moist oral mucous membranes HEENT Narrative: Alopecia noted. Head and Scalp: normocephalic Mouth: oral and palatal mucosa normal Eyes PERRL, EOMs intact bilaterally and conjunctivae normal Neck no lymphadenopathy, supple and no JVD Resp normal respiratory effort, no retractions, no use of accessory muscles and clear to auscultation bilaterally Cardio regular rate, regular rhythm, S1 normal heart sound, S2 normal heart sound, no murmurs, no rub and no gallops GI normal to inspection, nondistended, normoactive bowel sounds, soft to palpation and non-tender Extremity normal to inspection, full ROM and no clubbing, cyanosis or edema Skin Skin Narrative: +Alopecia. Neuro oriented x3, CN's II-XII intact bilaterally, moves all extremities and no focal motor deficits Sensorium / Orientation: awake and alert Psych affect normal Vital Signs Temperature 97.6 F L 08/12/22 10:00 Temperature Source Temporal 08/12/22 10:00 Pulse Rate 98 08/12/22 10:00 Pulse Strength Weak (1+) 08/12/22 10:00 Respiratory Rate 16 08/12/22 10:00 Respiratory Effort 08/11/22 04:00 Respiratory Depth Normal 08/10/22 04:30 Respiratory Pattern Normal 08/11/22 19:02 Blood Pressure 120/75 08/12/22 10:00 Blood Pressure Mean 90 08/12/22 10:00 Blood Pressure Source Monitor 08/12/22 09:10 Blood Pressure Position Sitting 08/12/22 09:10 Blood Pressure Location Left Arm 08/12/22 09:10 Pulse Ox 97 08/12/22 10:00 Oxygen Delivery Method Room Air 08/12/22 10:00 Oxygen Flow Rate (L/min) 3 08/08/22 14:32 Laboratory Results - last 24 hr 08/08/22 11:03: Diff Path Review Reviewed 08/09/22 02:30: Diff Path Review Reviewed 08/10/22 04:35: Diff Path Review Reviewed 08/11/22 05:07: Diff Path Review Reviewed 08/12/22 03:29: Sodium 136, Potassium 4.4, Chloride 108 H, Carbon Dioxide 23.0, Anion Gap 5, BUN 19 H, Creatinine 0.92, Estim Creat Clear Calc 43.79, Est GFR (MDRD) Af Amer 79, Est GFR (MDRD) Non-Af 65, BUN/Creatinine Ratio 20.7 H, Glucose 122 H, Calcium 8.1 L 08/12/22 03:29: WBC 0.9 L*, RBC 2.19 L, Hgb 7.0 L, Hct 21.7 L, MCV 99.1 H, MCH 32.0, MCHC 32.3, RDW Std Deviation 61.8 H, RDW Coeff of Real 16.9 H, Plt Count 62 L, MPV 11.8, Immature Gran % (Auto) 0.000, Neut % (Auto) 13.3 L, Lymph % (Auto) 27.8, Vance % (Auto) 58.9 H, Eos % (Auto) 0.0, Baso % (Auto) 0.0, Absolute Neuts (auto) 0.1 L, Absolute Lymphs (auto) 0.25 L, Nucleated RBC % 0, Diff Path Review Reviewed, Platelet Estimate MOD DEC, Anisocytosis 1+ 08/12/22 03:29: Magnesium 1.7, Total Bilirubin 0.40, Direct Bilirubin 0.10, AST 5 L, ALT 17, Alkaline Phosphatase 34 L, Total Protein 5.3 L, Albumin 2.0 L, Globulin 3.3 Diagnostic Data Chest X-Ray 08/08/22 11:22 IMPRESSION: Hyperinflation. The lungs are clear. A right-sided Port-A-Cath is seen with the tip at the junction of the superior vena cava and right atrium. Electronically Signed: Rios Caraballo MD at 12:25 EST , Echocardiogram 08/09/22 12:48 Interpretation Summary Normal LV size. Left ventricular systolic function is normal. The estimated ejection fraction is 55 %. Mild (1+) tricuspid valve insufficiency. Pulmonary artery systolic pressure is 24 mmHg. Contrast injection was performed. Ordering Physician: Jarrod Umanzor Referring Physician: Richard Mancilla M.D. Performed By: Carleen Vivar RCS Charges/Coding Visit Charges Office Visits / Consults: [id number] IP Consult L3
[2022-08-12] MEDS: dilTIAZem 25 MG/5 ML Vial 10 MG IV BOLUS (20:28)
[2022-08-13] VITALS (16 sets, daily range): BP systolic 75–114; BP diastolic 42–90; PULSE 63–112; RESP 13–19; TEMP 36.1–36.6; O2SAT 96–100
[2022-08-13 04:51] LABS: Hematocrit 23.4 % (37-47); Hemoglobin 7.7 g/dL (12.0-15.0); Mean Corp Hgb Conc 32.9 g/dL (32-36); Mean Corpuscular Hgb 32.6 pg (27.0-32.0); Mean Corpuscular Volume 99.2 fL (81-99); Mean Platelet Vol. 11.8 fl (6.2-12.0); POSITIVE COUNT YES; POSITIVE MORPHOLOGY YES; Platelet Count 85 K/mm3 (150-450); RBC Distribution Width CV 17.2 % (11.6-14.6); RBC Distribution Width SD 62.5 fl (35.1-43.9); Red Blood Count 2.36 M/mm3 (4.2-5.4)
[2022-08-13 04:53] LABS: Differential Indicated MANUAL DIFF
[2022-08-13 05:18] LABS: Eosinophil 6 % (0-5); Lymphocyte 12 % (19-41); Metamyelocyte 6 % (0-1); Monocyte 23 % (0-10); Neutrophil-Band 7 % (0-5); Neutrophil-Segmented 46 % (47-70); Total Cells Counted 100 (MANUAL DIFF)
[2022-08-13 05:19] LABS: Nucleated Red Bld Cells,Manual 4 % (0-5)
[2022-08-13 05:20] LABS: Absolute Lymphocyte Count 0.48 X10^3/uL (0.83-4.51); Absolute Neutrophil Count 2.4 X10^3/uL (2.0-7.7); Lymphocyte # 0.48 X10^3/ul (0.83-4.51); Neutrophil # 2.35 X10^3/uL (2.7-7.7)
[2022-08-13 05:21] LABS: Platelet Estimate MOD DEC (ADEQ)
[2022-08-13 05:22] LABS: ALB/GLOB Ratio 0.6 RATIO (0.9-2.4); AST(SGOT) 8 U/L (15-37); Alanine Aminotransfer ALT/SGPT 27 U/L (13-56); Alkaline Phosphatase 44 U/L (45-117); Anion Gap 5 (5-15); BUN 15 mg/dL (7-18); BUN/Creat Ratio 16.2 RATIO (10-20); Calcium,Total 8.5 mg/dL (8.5-10.1); Chloride 106 mmol/L (98-107); Creatinine, Serum 0.92 mg/dL (0.55-1.02); EST Glomerular Filtration Rate 65 mL/min (>60); Est Glom Filt Rate - Afr Amer 78 mL/min (>60); Estimated Creatinine Clearance 43.79 ml/min; Globulin 3.3 g/dL (2.2-4.2); Glucose 73 mg/dL (74-106); Macrocytosis 1+; Microcytosis 1+; Polychromasia RARE; Potassium 4.3 mmol/L (3.5-5.1); Protein, Total 5.3 g/dL (6.4-8.2); Sodium Level 136 mmol/L (136-145)
[2022-08-13 05:23] LABS: Anisocytosis 2+
[2022-08-13] MEDS: Levothyroxine 25 MCG TABLET PO (06:13)
[2022-08-13] MEDS: Budesonide Respules 0.5 MG/2 ML AMPUL.NEB. INHALATION (07:35)
[2022-08-13] MEDS: Ipratropium/Albuterol Sulfate 3 ML AMPUL.NEB INHALATION (07:35)
[2022-08-13] MEDS: dexAMETHasone 4 MG Tablet PO (08:39)
[2022-08-13] MEDS: Ferrous Sulfate 325 MG Tablet PO (08:39)
[2022-08-13] MEDS: Pantoprazole Sodium 40 MG Tablet PO (08:39)
--- NOTE | 2022-08-13 09:10 | PCM.DC ---
Discharge Instructions Diet Discharge Diet: No restrictions Activity Discharge Activity: Return to Normal Activity Weight Bearing Status: Weight bearing as tolerated Follow Up Care Test Results: Test results from this visit will be discussed in further detail at your follow-up appointment, if applicable. Discharge Plan Admission Admit Date/Time: 08/08/22 13:26 Primary Reason for Your Visit: Shock/neutropenic sepsis Attending Provider: Angelique Boston Primary Care Provider: Richard Mancilla Consulting Providers: Neeraj Malagon ; Ken Noguera ; Greg Gómez ; Jarrod Umanzor ; Surinder Hurley ; Lucero Velez BLINDSTITCH LINING FELLER ; Xavier Garcia ; Golden Valles ; Tyao Sanchez ; Federico Arita ; Pancho Butler ; Eric Damon ; Nicholas Ibrahim ; Elham De La Garza BLINDSTITCH LINING FELLER ; Naty Manriquez Instructions Additional Instructions / Restrictions: Continue on to take all your medications as prescribed Follow-up with your oncologist within 1 week Follow-up with cardiology within 2 weeks-call the office for appointment Discharge Orders/Prescriptions Prescriptions: Continued clopidogrel 75 mg tablet 75 mg PO DAILY Label Comments: PT STOPPED TAKING DUE TO UPCOMING PROCEDURES. lidocaine-prilocaine 2.5-2.5 % cream 1 applic topical ONCE PRN (Reason: port access) 30 Days Qty: 30 2RF ondansetron 8 mg tablet,disintegrating 8 mg PO Q8H PRN (Reason: nausea and vomiting) Qty: 30 2RF docusate sodium [Colace] 100 mg capsule 100 mg PO DAILY MAGIC MOUTH WASH (BMX) 180 mL suspension 5 ml PO Q4H PRN (Reason: mouth pain) Qty: 180 1RF dexamethasone 4 mg tablet 4 mg PO DAILY Qty: 30 0RF potassium chloride 20 mEq tablet extended release 20 meq PO DAILY Qty: 14 0RF ferrous sulfate 325 mg (65 mg iron) tablet 325 mg PO BID levothyroxine [Euthyrox] 25 mcg tablet 25 mcg PO DAILY Trelegy Ellipta 100-62.5-25 mcg Blister With Device 1 inh INHALATION DAILY Label Comments: START ONCE OTHER INHALER FINISHED pantoprazole [Protonix] 40 mg tablet,delayed release (DR/EC) 40 mg PO BID Qty: 60 0RF Discontinued losartan 100 mg tablet 100 mg PO DAILY Label Comments: PT STOPPED TAKING ON 02/15/22 DUE TO BP BEING LOW. Referrals / Follow Up: Richard Mancilla MD [Primary Care Provider] - [facility] - Oliver Callahan MD [Med Staff - Active Staff] - Within 2 Weeks Disposition Disposition (needs filled in before D/C Order can be placed): Home Health Service
--- NOTE | 2022-08-13 09:13 | PCM.DC.SUM ---
Providers Date of Admission: 08/08/22 Date of Discharge: 08/13/22 Primary Care Physician: Dr. Richard Mancilla MD Consultations 08/08/22 15:02 Consult: Electronics Recycler / Pulmonary Medicine Routine Consulting Provider: [facility] Reason for Consult: hypotension, refractory to IVF EMERGENT Consult: No Notified: Yes Date Notified: 08/08/22 Time Notified: 13:30 Method of Notification: Verbal 08/10/22 07:34 Consult: Cardiology Routine Consulting Provider: Neeraj Malagon Reason for Consult: nonstemi EMERGENT Consult: No Notified: Yes Date Notified: 08/10/22 Time Notified: 07:35 Method of Notification: Text 08/11/22 10:00 Consult: Oncology/Hematology Routine Consulting Provider: [facility] Reason for Consult: pancytopenia EMERGENT Consult: No Notified: Yes Date Notified: 08/11/22 Time Notified: 10:00 Method of Notification: Text Reason For Visit: HYPOTENSION Diagnosis Discharge Diagnosis (1) Pancytopenia due to chemotherapy: Status: Acute Code(s): D61.810 - Antineoplastic chemotherapy induced pancytopenia (2) DLBCL (diffuse large B cell lymphoma): Status: Chronic Code(s): C83.30 - Diffuse large B-cell lymphoma, unspecified site Qualifiers: Lymphoma site: multiple regions Qualified Code(s): C83.38 - Diffuse large B-cell lymphoma, lymph nodes of multiple sites Plan 1. Shock, unclear etiology, resolved 2. Pancytopenia, s/p chemotherapy, resolved 3. Diffuse large B cell lymphoma of the stomach, right pelvis and sacrum, 4. Type II NSTEMI 5. Hypothyroidism Medications at Discharge Home Medications clopidogrel 75 mg tablet 75 mg PO DAILY anti platelet 02/08/22 fluticasone fur. 100 mcg-umeclid 62.5 mcg-vilant 25 mcg inhalat.powder (Trelegy Ellipta) 1 inh inhalation DAILY 03/11/22 levothyroxine 25 mcg tablet (Euthyrox) 25 mcg PO DAILY 03/11/22 lidocaine-prilocaine 2.5 %-2.5 % topical cream 1 applic topical ONCE PRN port access 30 days #30 grams 03/13/22 ondansetron 8 mg disintegrating tablet 8 mg PO Q8H PRN nausea and vomiting #30 tabs 03/13/22 docusate sodium 100 mg capsule (Colace) 100 mg PO DAILY 04/22/22 pantoprazole 40 mg tablet,delayed release (Protonix) 40 mg PO BID #60 tabs 05/28/22 MAGIC MOUTH WASH (BMX) 180 mL suspension 5 ml PO Q4H PRN mouth pain #180 mL 06/03/22 dexamethasone 4 mg tablet 4 mg PO DAILY #30 tabs 07/15/22 ferrous sulfate 325 mg (65 mg iron) tablet 325 mg PO BID 07/29/22 potassium chloride 20 mEq tablet,extended release 20 meq PO DAILY #14 tabs 07/29/22 Hospital Course Operations None Procedures 2-D Echocardiogram Summary of Care Provided Minutes Spent on Discharge: 35 Hospital Course: 66-year-old female with past medical history of non-Hodgkin's lymphoma, on chemotherapy who comes in with an episode of syncope. Patient stated that she was trying to get out of bed when she felt dizzy and had a syncopal episode. In the emergency room, her blood pressure was relatively low, she was tachycardic. Her WBC count was 0.4, hemoglobin 9.2, platelet 185. Creatinine was 1.58. Lactic acid was 3.4. COVID-19 rapid testing and influenza was negative. UA was unremarkable. Her troponin was 632-->481. Patient was admitted to the intensive care unit, cardiology and critical care were consulted. She received IV fluids and was started on IV Levophed. Her blood and urine cultures came back negative. She had 2D echo done that showed preserved LV function. It was felt that her elevated troponins were secondary to type II non-STEMI. Oncology was also consulted and she was started on Granix. Her white cell count gradually improved as well as her kidney function. Patient did go into periods of A. fib with RVR on the evening of 08/12/22. She did require Cardizem bolus and drip. She however converted shortly after midnight on 08/13/22 and remained in normal sinus rhythm. Patient has no history of paroxysmal atrial fibrillation. This is likely related to her general overall medical condition. Discussed with cardiology, patient will follow-up with cardiology in the outpatient within 2 weeks. She was strongly encouraged to follow-up with her primary care doctor and oncology within a week, for repeat blood work to follow-up on blood counts. Physical Exam Narrative Physical exam: General: Alert, oriented x3, cooperative, appears frail HEENT: Atraumatic Oral: Moist Mucosa Neck: Supple Lungs: Diminished to auscultation Cardiovascular: HS I+II, regular, no murmurs Abdomen: Bowel Sounds Present, Soft, Non Tender Extremities: No edema Skin: No rashes, No breakdown Neurological: Grossly intact Psych/Mental Status: Appropriate Medical Records Data Medical Nutrition Assessment Dietitian: Malnutrition Criteria Met Start: 08/09/22 12:09 Freq: Status: Active Protocol: Document 08/12/22 10:20 [facility] (Rec: 08/12/22 10:20 [facility] [id number]) Nutrition Malnutrition Evidence of Malnutrition Exists Yes Malnutrition (moderate): Chronic Evidenced By Weight Loss (Severe),Physical Changes (Moderate) Clinical Problem Chronic Disease or Condition Related Malnutrition Etiology moderate related to non- hodgkin lymphoma Signs/Symptoms as evidenced by 17.2lbs (11.9% ) in 6 months pension administrator, variable po intake and moderate temporal and orbital fat/muscle loss Status Active Problem Recommendation Dietitian Recommendations/Changes Continue Cardiac diet, if PO intakes are poor recommend liberalizing to Regular diet. Will continue Ensure Compact TID with meals. Weight / BMI Weight Weight: 59.8 kg Body Mass Index (BMI) 23.9 ABG / Lab / Microbiology Data Result Diagrams: 08/13/22 04:15 08/13/22 04:15 Laboratory: Laboratory Results - last 24 hr 08/08/22 11:03: Diff Path Review Reviewed 08/09/22 02:30: Diff Path Review Reviewed 08/10/22 04:35: Diff Path Review Reviewed 08/11/22 05:07: Diff Path Review Reviewed 08/12/22 03:29: Diff Path Review Reviewed 08/12/22 03:29: Magnesium 1.7, Total Bilirubin 0.40, Direct Bilirubin 0.10, AST 5 L, ALT 17, Alkaline Phosphatase 34 L, Total Protein 5.3 L, Albumin 2.0 L, Globulin 3.3 08/13/22 04:15: WBC 4.0 L, RBC 2.36 L, Hgb 7.7 L, Hct 23.4 L, MCV 99.2 H, MCH 32.6 H, MCHC 32.9, RDW Std Deviation 62.5 H, RDW Coeff of Real 17.2 H, Plt Count 85 L, MPV 11.8, Neut % (Auto) Not Reportable, Absolute Neuts (auto) 2.4, Absolute Lymphs (auto) 0.48 L, Total Counted 100, Neutrophils % (Manual) 46 L, Band Neutrophils % 7 H, Lymphocytes % (Manual) 12 L, Monocytes % (Manual) 23 H, Eosinophils % (Manual) 6 H, Metamyelocytes % 6 H, Nucleated RBCs/100 WBC 4, Diff Path Review May foll, Platelet Estimate MOD DEC, Polychromasia RARE, Anisocytosis 2+, Microcytosis 1+, Macrocytosis 1+ 08/13/22 04:15: Sodium 136, Potassium 4.3, Chloride 106, Carbon Dioxide 25.0, Anion Gap 5, BUN 15, Creatinine 0.92, Estim Creat Clear Calc 43.79, Est GFR (MDRD) Af Amer 78, Est GFR (MDRD) Non-Af 65, BUN/Creatinine Ratio 16.2, Glucose 73 L, Calcium 8.5, Total Bilirubin 0.40, AST 8 L, ALT 27, Alkaline Phosphatase 44 L, Total Protein 5.3 L, Albumin 2.0 L, Globulin 3.3, Albumin/Globulin Ratio 0.6 L Microbiology: Microbiology 08/08/22 21:50 Urine, Clean Catch Urine Culture - Final Culture exhibits no growth. 08/08/22 11:15 Blood Culture (Wb) - Anticubital Left Blood Culture - Preliminary No growth in 48 hours. 08/08/22 12:15 Blood Culture (Wb) - Right Forearm Blood Culture - Preliminary No growth in 48 hours. 08/09/22 12:16 Stool Enteric Bacteriology - Final 08/09/22 17:30 Stool C. difficile DNA Amplification - Final 08/09/22 12:16 Stool Stool Occult Blood (YAMILA) - Final 08/08/22 11:20 Nasal Secretion SARS-CoV-2 & FLU Antigen (Rapid) - Final D/C Instructions Discharge Diet: No restrictions Weight Bearing Status: Weight bearing as tolerated Meaningful Use Info Meaningful Use Diagnoses (Choose all that apply): None applicable Discharge Plan Admission Admit Date/Time: 08/08/22 13:26 Primary Reason for Your Visit: Shock/neutropenic sepsis Attending Provider: Angelique Boston Primary Care Provider: Richard Mancilla Consulting Providers: Neeraj Mlaagon ; Ken Noguera ; Greg Gómez ; Jarrod Umanzor ; Surinder Hurley ; Lucero Velez CASING SPLITTER ; Xavier Garcia ; Golden Valles ; Tayo Sanchez ; Federico Arita ; Pancho Butler ; Eric Damon ; Nicholas Ibrahim ; Elham De La Garza CASING SPLITTER ; Naty Manriquez Instructions Additional Instructions / Restrictions: Continue on to take all your medications as prescribed Follow-up with your oncologist within 1 week Follow-up with cardiology within 2 weeks-call the office for appointment Discharge Orders/Prescriptions Prescriptions: Continued clopidogrel 75 mg tablet 75 mg PO DAILY Label Comments: PT STOPPED TAKING DUE TO UPCOMING PROCEDURES. lidocaine-prilocaine 2.5-2.5 % cream 1 applic topical ONCE PRN (Reason: port access) 30 Days Qty: 30 2RF ondansetron 8 mg tablet,disintegrating 8 mg PO Q8H PRN (Reason: nausea and vomiting) Qty: 30 2RF docusate sodium [Colace] 100 mg capsule 100 mg PO DAILY MAGIC MOUTH WASH (BMX) 180 mL suspension 5 ml PO Q4H PRN (Reason: mouth pain) Qty: 180 1RF dexamethasone 4 mg tablet 4 mg PO DAILY Qty: 30 0RF potassium chloride 20 mEq tablet extended release 20 meq PO DAILY Qty: 14 0RF ferrous sulfate 325 mg (65 mg iron) tablet 325 mg PO BID levothyroxine [Euthyrox] 25 mcg tablet 25 mcg PO DAILY Trelegy Ellipta 100-62.5-25 mcg Blister With Device 1 inh INHALATION DAILY Label Comments: START ONCE OTHER INHALER FINISHED pantoprazole [Protonix] 40 mg tablet,delayed release (DR/EC) 40 mg PO BID Qty: 60 0RF Discontinued losartan 100 mg tablet 100 mg PO DAILY Label Comments: PT STOPPED TAKING ON 02/15/22 DUE TO BP BEING LOW. Referrals / Follow Up: Oliver Callahan MD [Med Staff - Active Staff] - Within 2 Weeks Richard Mancilla MD [Primary Care Provider] - In 1 Week [facility] [Non-Staff] - Disposition Disposition (needs filled in before D/C Order can be placed): Home Health Service Charges/Coding Visit Charges Inpatient E&M: 04190 Disch Hosp
--- NOTE | 2022-08-13 10:14 | EKG12_ITS ---
Test Reason : EKG CHANGE Blood Pressure : / mmHG Vent. Rate : 096 BPM Atrial Rate : 096 BPM P-R Int : 138 ms QRS Dur : 108 ms QT Int : 386 ms P-R-T Axes : 033 000 041 degrees QTc Int : 487 ms Normal sinus rhythm Septal infarct , age undetermined Abnormal ECG Confirmed by MAC TRINH, GUY ([id number]), technical writer and editor MCKENZIE HAND ([id number]) on 08/16/2022 7:51:06 AM Referred By: BRANDAN Confirmed By:GUY WATTS MD
--- NOTE | 2022-08-13 13:33 | CASEMGMT ---
Updated Margie from [facility] that pt will dc today.
[2022-08-13 13:50] LABS: Pathologist Review Reviewed
== END 2022-08-13 13:45 | disposition home health service (06) | DRG 871 ==
LOC: ED 13:27 → ICU 13:44
PROVIDERS: Internal Medicine; Admitting Provider Student in an Organized Health Care Education/Training Program; Emergency Provider Emergency Medicine; PCP Internal Medicine; Visit Provider Internal Medicine
DX: A41.9 Sepsis, unspecified organism (principal); I21.A1 Myocardial infarction type 2; R57.0 Cardiogenic shock; D61.810 Antineoplastic chemotherapy induced pancytopenia; R65.21 Severe sepsis with septic shock; E44.0 Moderate protein-calorie malnutrition; C83.36 Diffuse large B-cell lymphoma, intrapelvic lymph nodes; C83.38 Diffuse large B-cell lymphoma, lymph nodes of multiple sites; N17.9 Acute kidney failure, unspecified; I48.91 Unspecified atrial fibrillation; D70.9 Neutropenia, unspecified; E03.9 Hypothyroidism, unspecified; E78.00 Pure hypercholesterolemia, unspecified; F17.210 Nicotine dependence, cigarettes, uncomplicated; I10 Essential (primary) hypertension; E87.6 Hypokalemia; T45.1X5A Adverse effect of antineoplastic and immunosuppressive drugs, initial encounter; Z20.822 Contact with and (suspected) exposure to COVID-19; R00.0 Tachycardia, unspecified; R33.9 Retention of urine, unspecified; Z28.310 Unvaccinated for COVID-19; Z68.24 Body mass index [BMI] 24.0-24.9, adult; Z79.02 Long term (current) use of antithrombotics/antiplatelets; Z79.890 Hormone replacement therapy; Z79.899 Other long term (current) drug therapy; Z95.828 Presence of other vascular implants and grafts; Z92.21 Personal history of antineoplastic chemotherapy
CPT/HCPCS: 71045; 80048; 80053; 80076; 80202; 81001; 82274; 82310; 83605; 83735; 84132; 84484; 85014; 85018; 85025; 85610; 85730; 87040; 87086; 87428; 87493; 87506; 93005; 93308; 94640; 97110; 97116; 97162; 97166; 97535; 99285; 99406; J7030; J7040; J7050; Q9957; A4216; C8924; J1447

== ENCOUNTER 2022-09-05 13:29 | Outpatient (CLI) | payer MEDICARE, SELFPAY ==
--- NOTE | 2022-09-05 13:34 | CT_ITS ---
STUDY: CT ABDOMEN AND PELVIS WITH CONTRAST REASON FOR EXAM: Female, 67 years old. MONITOR NHL RADIATION DOSAGE (If Supplied By Facility): CTDIvol = ( 11.49 ) mGy, DLP = ( 400.31 ) mGycm TECHNIQUE: Transaxial images were obtained from the dome of the diaphragm to the symphysis pubis with oral contrast. Oral and amp;amp; IV Readi-CAT and amp;amp; 100mL Isovue-300 was administered. Sagittal and coronal images were reconstructed. Individualized dose optimization techniques were used for this CT. COMPARISON: Comparison is made with prior study dated 09/30/2021. FINDINGS: 1.6 cm x 1.2 cm spiculated nodule in the left lower lobe. This was not present on prior study. The visualized portions of the heart are within normal limits. Normal liver. Normal gallbladder and extrahepatic biliary system. Normal spleen. Normal pancreas. Normal bilateral adrenal glands. Normal right kidney. Normal left kidney. Normal visualized stomach. Normal small intestine. There are scattered colonic diverticula consistent with diverticulosis. The appendix is visualized and appears normal. Normal abdominal aorta. Normal inferior vena cava. Normal retroperitoneum. Normal urinary bladder. Normal abdominal wall. 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 Sclerotic changes also seen at the S1 level. CT/Abdomen/Pelvis WITH Contrast IMPRESSION: Stable examination. Electronically Signed: Rios Caraballo MD at 15:00 EST ,
== END 2022-09-05 23:59 | disposition home or self-care (01) ==
LOC: CT 13:33
PROVIDERS: PCP Internal Medicine; Referring Provider Internal Medicine Medical Oncology; Visit Provider Internal Medicine Medical Oncology
DX: C83.36 Diffuse large B-cell lymphoma, intrapelvic lymph nodes (principal)
CPT/HCPCS: 36593; 74177; 80053; 83615; 85025; J2997; Q9967; A4216

== ENCOUNTER 2022-12-16 06:08 | Day surgery (SDC) | payer MEDICARE, SELFPAY ==
--- NOTE | 2022-12-16 06:32 | HP.PCM_ITS ---
History and Physical Date of Admission: 12/16/22 67 F who presents to the office today for f/u non-Hodgkin lymphoma in her stomach. We initially saw her on 02/19/2022 upon referral by oncology for gastric wall thickening with associated abnormal FDG activity meeting criteria for viable neoplasm on PET scan.? Biopsy of gastric mass on EGD on 02/20/2022 was consistent with non-Hodgkin lymphoma, diffuse large B-cell type, follicle center cell origin. At that time she had been having abdominal pain, anorexia, weight loss. She received chemotherapy from 02/2022 to 06/2022 for diffuse large B-cell lymphoma, chronic, multiple regions, stage IV. PET/CT in April 2022 showed complete response.? CT abdomen pelvis in August 2022 shows no evidence of disease.? She had follow-up with hematology oncology last month, they will continue with observation.? She needed hospital admission for pancytopenia in July 2022. She reports she had some abdominal pain when she started eating more after completing chemotherapy, but denies any recent abd pain. Has had heartburn approx 4 times in the past 3 months, takes nilda seltzer with good relief. Not taking pantoprazole currently. Denies nausea, vomiting, dysphagia, early satiety. Her stools are dark which she attributes to iron supplement. Denies diarrhea, constipation, melena, hematochezia. Is gaining some weight. No longer has right hip pain. She has never had a colonoscopy ROS Const Constitutional: No fatigue ENT ENT: No difficulty swallowing Gastro GI: Positive for diarrhea and vomiting; No abdominal pain, belching, bloating, change in bowel habits, change in stool character, coffee ground emesis, constipation, cramping, heartburn, difficulty swallowing, feeling full early, excessive flatus, incontinent of stools, Vomiting blood/hematemesis, Blood in stool, loose stools, Black,tarry stools, nausea/dyspepsia, pain with swallowing or other Musc Musculoskeletal: Positive for Arthritis; No joint pain Skin Skin: No yellowing of the eye or itchy eyes Psych Psychiatric: No anxiety and Positive for depression Endo Endocrine: No fatigue Aller/Imm Allergy/Immunologic: No itchy eyes Trav/Lymp Hematologic/Lymphatic: No easy bleeding or easy bruising Exam Const General: cooperative and comfortable Nutritional Appearance: average body habitus Orientation: alert, awake and oriented x3 Eyes Sclera: sclerae normal Resp Effort & Inspection: normal respiratory effort GI Inspection: normal to inspection Palpation: soft, no hepatosplenomegaly, no masses and nontender Skin General: no rashes or lesions noted Psych Mood: euthymic mood Quality Reporting Tobacco Screening ([facility]) Smoking Status: Current every day smoker Assessment and Plan Assessment and Plan (1) DLBCL (diffuse large B cell lymphoma): ?Status:?Chronic ?Qualifiers: ?Lymphoma site:?multiple regions? Qualified Code(s):?C83.38 - Diffuse large B-cell lymphoma, lymph nodes of multiple sites ?Plan: This delightful 67 yr old lady currently has no evidence of lymphoma. Hx gastric mass. She denies GI complaints at this time other than occas heartburn. We will schedule her for a screening colonoscopy as well as EGD at the same time. F/u in office 2 wks later to discuss results. (2) Colonoscopy planned: ?Status:?Acute ?Plan: I have examined the patient and the H&P has been reviewed. There are no clinical changes since date of exam.
[2022-12-16 06:46] VITALS: BP 108/74; PULSE 81; RESP 16; TEMP 36.3; O2SAT 100; BMI 22.4
[2022-12-16] MEDS: Lactated Ringers 1,000 ML 15 ML IV (06:52)
--- NOTE | 2022-12-16 07:15 | EGD_PTH ---
PATIENT: DEVIN BALLESTEROS LOC: EN U#:[id number] AGE/SX: 67/F ROOM: RE12/16/[address]: Dr. Shalom Day DO : 1955 BED: DIS: 12/16/2022 SPEC #: [id number] RECD: 12/16/22 10:36 STATUS: RICCARDO RE #: [id number] ELLA: 12/16/22 07:[address]: Shalom Day DEPT: SURGICAL PATHOLOGY RECD BY: Mechelle Huitron ENTERED: 12/16/22 11:15 SP TYPE: EGD BIOPSY [facility] DR: Dr. Richard Mancilla MD Tissues: A - Gastric mucous membrane B - Gastric mucous membrane C - Esophagus, NOS D - Descending colon E - COLON BIOPSY F - Rectum, NOS Procedures: Surgery Specimen Level IV HEADER OPERATION: Colonoscopy, EGD ([facility] [place] [facility]), biopsy, polypectomy PRE-OP DIAGNOSIS: Screening, history of lymphoma TISSUE SUBMITTED: A - Gastric body biopsy and H. pylori and path, B - Gastric ulcer biopsy, C - Distal esophagus biopsy, D - Descending colon polyp, E - Polyp hepatic flexure, F - Rectal polyp MICROSCOPIC DIAGNOSIS A. Gastric body, biopsy: Mild chronic gastritis. See comment. B. Gastric ulcer, biopsy: Chronic inflammation. C. Distal esophagus, biopsy: Gastroesophageal junctional mucosa with mild chronic inflammation. No evidence of goblet cell metaplasia. See comment. D. Descending colon polyp, biopsy: Fragments of tubular adenoma. E. Colonic polyp at hepatic flexure, biopsy: Fragments of tubular adenoma. F. Rectal polyp, biopsy: Tubular adenoma. AM:ivonne 12/17/2022 COMMENT A. The results of immunohistochemistry for Helicobacter pylori will be reported separately ([id number]). C. Alcian blue/PAS stain with matched control supports the above diagnosis. MICROSCOPIC DESCRIPTION Slides are reviewed. GROSS DESCRIPTION A - Received in fixative is one container labeled with the patient's name and designated gastric body biopsy. The specimen consists of multiple irregular fragments of light kendall soft tissue that in aggregate measure 1.5 x 0.5 x 0.1 cm. The specimen is totally submitted in one cassette. B - Received in fixative is one container labeled with the patient's name and designated gastric ulcer biopsy. The specimen consists of multiple irregular fragments of light kendall soft tissue that in aggregate measure 1.5 x 1.0 x 0.1 cm. The specimen is totally submitted in one cassette. C - Received in fixative is one container labeled with the patient's name and designated distal esophagus biopsy. The specimen consists of two irregular fragments of light kendall soft tissue that in aggregate measure 0.7 x 0.5 x 0.1 cm. The specimen is totally submitted in one cassette. D - Received in fixative is one container labeled with the patient's name and designated descending colon polyp. The specimen consists of two irregular fragments of light kendall soft tissue that in aggregate measure 0.8 x 0.5 x 0.1 cm. The specimen is totally submitted in one cassette. E - Received in fixative is one container labeled with the patient's name and designated polyp at hepatic flexure. The specimen consists of three irregular fragments of light kendall soft tissue that in aggregate measure 1.0 x 0.5 x 0.1 cm. The specimen is totally submitted in one cassette. F - Received in fixative is one container labeled with the patient's name and designated rectal polyp. The specimen consists of multiple irregular fragments of light kendall soft tissue that in aggregate measure 1.0 x 0.5 x 0.1 cm. The specimen is totally submitted in one cassette. / AM:ivonne 12/16/2022 TC:3 CPT: 71722 x6, 68523
--- NOTE | 2022-12-16 07:15 | IMM_PTH ---
PATIENT: DEVIN BALLESTEROS LOC: EN U#:[id number] AGE/SX: 67/F ROOM: RE12/16/[address]: Dr. Shalom Day DO : 1955 BED: DIS: 12/16/2022 SPEC #: [id number] RECD: 12/16/22 13:04 STATUS: RICCARDO REQ #: [id number] ELLA: 12/16/22 07:[address]: Shalom Day DEPT: IMMUNOHISTOCHEMISTRY RECD BY: Ellie Gordon ENTERED: 12/16/22 13:04 SP TYPE: IMMUNO OTHR DR: Dr. Richard Mancilla MD Tissues: A - Stomach, NOS Procedures: H Pylori (initial) PHYSICIAN & INSTITUTION [place] [address] SPECIMEN INFORMATION: Tissue Source: A ? Gastric body Clinical Info: Screening, history of lymphoma Specimen Number: [id number] CPT code: 78832 METHODOLOGY: Deparaffinized sections of prefer/formalin-fixed tissue or PAP/DQ stained slides are incubated with monoclonal/polyclonal antibodies/oligonucleotide probes. Localization is made via biotin free immunoperoxidase method. Appropriate controls are performed and reacted as expected. Results on target cell population are indicated in the following table: RESULTS: ANTIBODY / CLONE RESULT Block A H Pylori (polyclonal) negative These tests were developed and their performance characteristics determined by [facility]. They may not have been cleared or approved by the U.S. Food and Drug Administration. The FDA has determined that such clearance or approval is not necessary. The above immunohistochemical/dualISH markers are ordered and reviewed by the Pathologist. INTERPRETATION: A. Gastric body, biopsy: Negative for Helicobacter pylori organisms. AM:ivonne 12/17/2022
[2022-12-16 07:46] VITALS: BP 108/74; BP 79/43; PULSE 77; RESP 16; TEMP 35.8; O2SAT 99
--- NOTE | 2022-12-16 07:47 | OP.EGD_ITS ---
Patient Name: Jacqui Soler Procedure Date: 12/16/2022 7:06 AM Date of : 1955 Age: 67 Procedure: Upper GI endoscopy Indications: Personal history of malignant gastric neoplasm Providers: Shalom Day DO Referring MD: Shalom Day DO Medicines: Monitored Anesthesia Care Patient Profile: This is a 67 year old female. Refer to note in patient chart for documentation of history and physical. Patient has symptoms of chronic epigastric abdominal pain. Complications: No immediate complications. Procedure: Pre-Anesthesia Assessment: - Prior to the procedure, a History and Physical was performed, and patient medications and allergies were reviewed. The risks and benefits of the procedure and the sedation options and risks were discussed with the patient. All questions were answered and informed consent was obtained. Patient identification and proposed procedure were verified by the physician in the pre-procedure area. Mental Status Examination: alert and oriented. Airway Examination: normal oropharyngeal airway and neck mobility. Respiratory Examination: clear to auscultation. CV Examination: normal. Prophylactic Antibiotics: The patient does not require prophylactic antibiotics. Prior Anticoagulants: The patient has taken no previous anticoagulant or antiplatelet agents. ASA Grade Assessment: II - A patient with mild systemic disease. After reviewing the risks and benefits, the patient was deemed in satisfactory condition to undergo the procedure. The anesthesia plan was to use monitored anesthesia care (MAC). Immediately prior to administration of medications, the patient was re-assessed for adequacy to receive sedatives. The heart rate, respiratory rate, oxygen saturations, blood pressure, adequacy of pulmonary ventilation, and response to care were monitored throughout the procedure. The physical status of the patient was re-assessed after the procedure. After obtaining informed consent, the endoscope was passed under direct vision. Throughout the procedure, the patient's blood pressure, pulse, and oxygen saturations were monitored continuously. The Colonoscope was introduced through the mouth, and advanced to the second part of duodenum. The upper GI endoscopy was accomplished without difficulty. The patient tolerated the procedure well. Scope In: 7:17:33 AM Scope Out: 7:25:14 AM Total Procedure Duration Time 0 hours 7 minutes 41 seconds Findings: LA Grade A (one or more mucosal breaks less than 5 mm, not extending between tops of 2 mucosal folds) esophagitis with no bleeding was found 36 to 38 cm from the incisors. Biopsies were taken with a cold forceps for histology. Verification of patient identification for the specimen was done. Estimated blood loss was minimal. One non-bleeding cratered gastric ulcer with no stigmata of bleeding was found in the gastric body. The lesion was 10 mm in largest dimension. Biopsies were taken with a cold forceps for histology. Verification of patient identification for the specimen was done. Estimated blood loss was minimal. Patchy mild inflammation characterized by erosions was found in the gastric body. Biopsies were taken with a cold forceps for histology. Verification of patient identification for the specimen was done. Estimated blood loss was minimal. The first portion of the duodenum was normal. Impression: - LA Grade A reflux esophagitis. Biopsied. - Non-bleeding gastric ulcer with no stigmata of bleeding. Biopsied. - Gastritis. Biopsied. - Normal first portion of the duodenum. Recommendation: - Discharge patient to home. - Resume previous diet. - Continue present medications. - Await pathology results. - Repeat upper endoscopy for surveillance. Procedure Code(s): --- Professional --- 92842, Esophagogastroduodenoscopy, flexible, transoral; with biopsy, single or multiple CPT copyright 2017 [employer]. All rights reserved. The codes documented in this report are preliminary and upon medical biller/coder review may be revised to meet current compliance requirements. Shalom Day DO 12/16/2022 7:47:26 AM This report has been signed electronically. Number of Addenda: 0 Note Initiated On: 12/16/2022 7:06 AM
--- NOTE | 2022-12-16 07:48 | OP.CCLET_ITS ---
12/16/2022 Richard Mancilla [address] [place] [address] Re : Upper GI endoscopy procedure for Jacqui Soler Dear Dr. Mancilla This procedure was performed on Friday, December 16, 2022. My impressions and recommendations are as follows: Impressions : - LA Grade A reflux esophagitis. Biopsied. - Non-bleeding gastric ulcer with no stigmata of bleeding. Biopsied. - Gastritis. Biopsied. - Normal first portion of the duodenum. Recommendations : - Discharge patient to home. - Resume previous diet. - Continue present medications. - Await pathology results. - Repeat upper endoscopy for surveillance. My findings are described in the full procedure note, which is enclosed. If I can be of further assistance, please feel free to contact me at . Sincerely, Shalom Day, 12/16/2022 7:47:26 AM This report has been signed electronically.
[2022-12-16 07:50] VITALS: BP 108/74; BP 83/55; PULSE 80; RESP 16; O2SAT 99
--- NOTE | 2022-12-16 07:52 | OP.COLON_ITS ---
Patient Name: Jacqui Soler Procedure Date: 12/16/2022 7:25 AM Date of : 1955 Age: 67 Procedure: Colonoscopy Indications: Screening for colorectal malignant neoplasm Providers: Shalom Day DO Referring MD: Shalom Day DO Medicines: Monitored Anesthesia Care Patient Profile: This is a 67 year old female. Refer to note in patient chart for documentation of history and physical. Patient has symptoms of chronic epigastric abdominal pain. Last Colonoscopy: none. The patient's first colonoscopy is today. Complications: No immediate complications. Procedure: Pre-Anesthesia Assessment: - Prior to the procedure, a History and Physical was performed, and patient medications and allergies were reviewed. The risks and benefits of the procedure and the sedation options and risks were discussed with the patient. All questions were answered and informed consent was obtained. Patient identification and proposed procedure were verified by the physician in the pre-procedure area. Mental Status Examination: alert and oriented. Airway Examination: normal oropharyngeal airway and neck mobility. Respiratory Examination: clear to auscultation. CV Examination: normal. Prophylactic Antibiotics: The patient does not require prophylactic antibiotics. Prior Anticoagulants: The patient has taken no previous anticoagulant or antiplatelet agents. ASA Grade Assessment: II - A patient with mild systemic disease. After reviewing the risks and benefits, the patient was deemed in satisfactory condition to undergo the procedure. The anesthesia plan was to use monitored anesthesia care (MAC). Immediately prior to administration of medications, the patient was re-assessed for adequacy to receive sedatives. The heart rate, respiratory rate, oxygen saturations, blood pressure, adequacy of pulmonary ventilation, and response to care were monitored throughout the procedure. The physical status of the patient was re-assessed after the procedure. After I obtained informed consent, the scope was passed under direct vision. Throughout the procedure, the patient's blood pressure, pulse, and oxygen saturations were monitored continuously. The Colonoscope was introduced through the anus and advanced to the cecum, identified by appendiceal orifice and ileocecal valve. The colonoscopy was performed without difficulty. The patient tolerated the procedure well. The quality of the bowel preparation was adequate. Scope In: 7:27:02 AM Scope Withdrawal Time 0 hours 9 minutes 11 seconds Scope Out: 7:41:48 AM Total Procedure Duration Time 0 hours 14 minutes 46 seconds Findings: Hemorrhoids were found on perianal exam. Two sessile polyps were found in the descending colon and hepatic flexure. The polyps were 1 to 2 mm in size. These polyps were removed with a cold biopsy forceps. Resection and retrieval were complete. Verification of patient identification for the specimen was done. Estimated blood loss was minimal. A 9 mm polyp was found in the rectum. The polyp was sessile. The polyp was removed with a hot snare. Resection and retrieval were complete. Verification of patient identification for the specimen was done. Estimated blood loss was minimal. Many small and large-mouthed diverticula were found in the recto-sigmoid colon, sigmoid colon, descending colon, hepatic flexure and ascending colon. No additional abnormalities were found on retroflexion. Impression: - Hemorrhoids found on perianal exam. - Two 1 to 2 mm polyps in the descending colon and at the hepatic flexure, removed with a cold biopsy forceps. Resected and retrieved. - One 9 mm polyp in the rectum, removed with a hot snare. Resected and retrieved. - Diverticulosis in the recto-sigmoid colon, in the sigmoid colon, in the descending colon, at the hepatic flexure and in the ascending colon. Recommendation: - Discharge patient to home. - Resume previous diet. - Continue present medications. - Await pathology results. - Repeat colonoscopy in 5 years for surveillance. Procedure Code(s): --- Professional --- 05983, Colonoscopy, flexible; with removal of tumor(s), polyp(s), or other lesion(s) by snare technique 13401, 59, Colonoscopy, flexible; with biopsy, single or multiple CPT copyright 2017 [employer]. All rights reserved. The codes documented in this report are preliminary and upon bmet review may be revised to meet current compliance requirements. Shalom Day DO 12/16/2022 7:52:24 AM This report has been signed electronically. Number of Addenda: 0 Note Initiated On: 12/16/2022 7:25 AM
--- NOTE | 2022-12-16 07:53 | OP.CCLET_ITS ---
12/16/2022 Richard Mancilla [address] [place] [address] Re : Colonoscopy procedure for Jacqui Soler Dear Dr. Mancilla This procedure was performed on Friday, December 16, 2022. My impressions and recommendations are as follows: Impressions : - Hemorrhoids found on perianal exam. - Two 1 to 2 mm polyps in the descending colon and at the hepatic flexure, removed with a cold biopsy forceps. Resected and retrieved. - One 9 mm polyp in the rectum, removed with a hot snare. Resected and retrieved. - Diverticulosis in the recto-sigmoid colon, in the sigmoid colon, in the descending colon, at the hepatic flexure and in the ascending colon. Recommendations : - Discharge patient to home. - Resume previous diet. - Continue present medications. - Await pathology results. - Repeat colonoscopy in 5 years for surveillance. My findings are described in the full procedure note, which is enclosed. If I can be of further assistance, please feel free to contact me at . Sincerely, Shalom Day, 12/16/2022 7:52:24 AM This report has been signed electronically.
[2022-12-16 07:55] VITALS: BP 108/74; BP 96/71; PULSE 81; RESP 16; O2SAT 99
[2022-12-16 08:01] VITALS: BP 104/59; BP 108/74; PULSE 74; RESP 16; TEMP 36.6; O2SAT 100
[2022-12-16 08:19] VITALS: BP 108/74
[2022-12-16] MEDS: 0.9% Saline Lock 10 ML Syringe IV (08:20)
== END 2022-12-16 08:45 | disposition home or self-care (01) ==
LOC: EN 06:12 → AC 06:14
PROVIDERS: PCP Internal Medicine; Referring Provider Internal Medicine; Visit Provider Internal Medicine Gastroenterology
PROC: 0DJD8ZZ Inspection of Lower Intestinal Tract, Via Natural or Artificial Opening Endoscopic (ICD-10-PCS; CPT 45378; principal; 2022-12-16 07:10)
DX: D12.4 Benign neoplasm of descending colon (principal); I48.0 Paroxysmal atrial fibrillation; K31.89 Other diseases of stomach and duodenum; D12.8 Benign neoplasm of rectum; D12.3 Benign neoplasm of transverse colon; K21.00 Gastro-esophageal reflux disease with esophagitis, without bleeding; K25.7 Chronic gastric ulcer without hemorrhage or perforation; K57.30 Diverticulosis of large intestine without perforation or abscess without bleeding; K29.50 Unspecified chronic gastritis without bleeding; F17.200 Nicotine dependence, unspecified, uncomplicated; K64.9 Unspecified hemorrhoids; I25.2 Old myocardial infarction; E78.00 Pure hypercholesterolemia, unspecified; I10 Essential (primary) hypertension; E07.9 Disorder of thyroid, unspecified; Z79.899 Other long term (current) drug therapy
CPT/HCPCS: 45385; 45380; 43239; 88305; 88342; J7120; J2405

== ENCOUNTER → 2023-03-04 | Outpatient (CLI) | payer MEDICARE, SELFPAY ==
--- NOTE | 2023-03-04 12:50 | CT_ITS ---
STUDY: CT CHEST T ABDOMEN WITH CONTRAST REASON FOR EXAM: Female, 67 years old. MONITER LYMPHOMA/LUNG NODULE-IV ONLY RADIATION DOSAGE (If Supplied By Facility): CTDIvol = ( 9.33 ) mGy, DLP = ( 673.08 ) mGycm TECHNIQUE: Transaxial imaging was performed following intravenous administration of IV 100mL Isovue-300. Multiplanar coronal and sagittal images were reformatted. Individualized dose optimization techniques were used for this CT. COMPARISON: Comparison is made with prior CT scan the abdomen and pelvis dated September 05, 2022. FINDINGS: CHEST A right-sided Port-A-Cath is seen in the superior vena cava. The previously seen spiculated nodule in the left lower lobe is not seen at this time. There is no demonstrated pleural abnormality. Normal heart and pericardium. Normal mediastinum. Normal hilar regions. Normal unenhanced pulmonary arteries. There is atherosclerotic calcification of the aortic arch with tortuosity and elongation of the aortic arch and descending thoracic aorta. There are multi-level degenerative changes of the thoracic spine. There is no demonstrated abnormality of the visualized upper abdomen. ABDOMEN Normal liver. Normal gallbladder and extrahepatic biliary system. Normal spleen. Normal pancreas. Normal bilateral adrenal glands. Normal right kidney. Normal left kidney. Normal visualized stomach. Normal small intestine. There are scattered colonic diverticula consistent with diverticulosis. The appendix is visualized and appears normal. Normal abdominal aorta. Normal inferior vena cava. Normal retroperitoneum. Findings suggestive of an enlarged fibroid uterus. Normal abdominal wall. There are mild degenerative changes of the visualized lumbar spine. CT/CT Chest AND Abd W/ Contrast IMPRESSION: The previously seen spiculated nodule at the left lung base is not seen at this time. Enlarged fibroid uterus. Levoscoliosis. Electronically Signed: Rios Caraballo MD at 15:51 EDT ,
[2023-03-04 13:30] LABS: CREATININE FINGERSTICK < 0.9 mg/dL (0.55-1.02); EGFR FINGERSTICK > 60.0000 mL/min (>60)
== END | disposition home or self-care (01) ==
PROVIDERS: PCP Internal Medicine; Referring Provider Internal Medicine Medical Oncology; Visit Provider Internal Medicine Medical Oncology
DX: C83.36 Diffuse large B-cell lymphoma, intrapelvic lymph nodes (principal); R91.1 Solitary pulmonary nodule
CPT/HCPCS: 36591; 71260; 74160; 80053; 82728; 83540; 83550; 83615; 85025; Q9967; A4216